=== PATIENT | female | born 1935 | race Caucasian/White ===

== ENCOUNTER 2021-06-10 11:18 | Inpatient (IN) | payer MEDICARE, MEDICAID ==
[~2021-06-10] VITALS: Ht 160 cm; Wt 71.4 kg
[2021-06-10] MEDS ORDERED: diphenhydrAMINE 25 MG TAB (BENADRYL) PO PRN (12:30)
[2021-06-10] MEDS ORDERED: CALCIUM CARBONATE 500 MG (TUMS) TAB.CHEW PO PRN (12:30)
[2021-06-10] MEDS ORDERED: DOCUSATE SODIUM 100 MG (COLACE) CAP PO PRN (12:30)
[2021-06-10] MEDS ORDERED: FLEET ENEMA ADULT 1 EA BTL PR PRN (12:30)
[2021-06-10] MEDS ORDERED: guaiFENesin/CODEINE (ROBITUSSIN AC) 10ML UDC PO PRN (12:30)
[2021-06-10] MEDS ORDERED: ALPRAZolam 0.25 MG (XANAX) TAB PO PRN (12:30)
[2021-06-10] MEDS ORDERED: LACTULOSE SYRUP 10GM/15ML (ENULOSE) 30ML UDC PO PRN (12:30)
[2021-06-10] MEDS ORDERED: ONDANSETRON 4 MG (ZOFRAN) ORAL DISSOLVE TAB PO PRN (12:30)
[2021-06-10] MEDS ORDERED: BISACODYL 10 MG SUPP (DULCOLAX) PR PRN (12:30)
--- NOTE | 2021-06-10 15:25 | Progress Note ---
JORGE SANTIAGO 06/10/21 1525: Progress Note Subjective CC: Right Hip Fracture, s/p R NAJMA revision HPI: Ruth Ball is an 85 yo female with a history of multiple falls and fractures, who presents for evaluation and management of periprosthetic R hip fracture s/p right NAJMA revision. She states that she had a recent R femoral neck fracture, which prompted a R NAJMA on 05/29/2021. Following this procedure, she was transferred to [facility] for rehabilitation. During this stay, Ruth experienced another fall. She fell forward upon standing up from a wheelchair, which resulted in an additional fracture of the R hip (periprosthetic). On 06/08/2021, Ruth underwent a revision of the R NAJMA. Today she is conversational, and alert. However, she states that she is in significant pain when she has to move her legs. She states she has not had a bowel movement in 3 days, and has not had an appetite. She will be accompanied by her son. PMH: Elevated BP w/o diagnosis of HTN Multiple Qing Hypo-natremia Anemia associated with acute blood loss R femoral neck fracture Sunshine-prosthetic fracture around internal prosthetic R hip joint Protein-calorie malnutrition PSH: Appendectomy Partial Hip replacement, hip hemiarthroplasty (05/29/21) Revision of R NAJMA (06/08/2021) MEDS: Item Value Date Time Tamsulosin HCl 0.4 mg 06/11/21 0900 (Flomax Capsule) DAILY/PO Metoprolol 25 mg 06/11/21 0900 Succinate DAILY/PO (Toprol Xl Tablet) Lidocaine 1 ea 06/11/21 0900 (Salonpas 4% DAILY/TP Patch) Vancomycin HCl 125 mg 06/10/21 2100 (Vancomycin Oral Q12HR/PO Capsule) Amoxicillin 500 mg 06/10/212099 (Polymox Capsule) TID/PO Lactobacillus 1 each 06/10/212099 Acidophilus BID/PO (Acidophilus Pectin Capsule) Miscellaneous REMOVE LIDOCAINE PATCH 06/10/212099 (Patch Removal) Q24H/TP Sodium Chloride 1 gm 06/10/212099 (Sodium Chloride TID/PO Tablet) Aspirin 81 mg 06/10/212099 (Ecotrin Tablet) BID/PO Senna 1 ea 06/10/212099 (Senokot S BID/PO Tablet) Polyethylene 17 gm 06/10/21 2100 Glycol BID/PO (Miralax 17 Gm Packet) Docusate Sodium 100 mg 06/10/21 2100 (Colace Capsule) BID/PO Tramadol HCl 50 mg 06/10/21 1800 (Ultram Tablet) Q8H PRN/PO Senna 1 ea 06/10/21 1800 (Senokot S BID PRN/PO Tablet) Oxycodone HCl 5 mg 06/10/21 1800 (Oxyir Tablet) Q8H PRN/PO Ondansetron HCl 4 mg 06/10/21 1230 (Zofran Oral Q6H PRN/PO Dissolve Tablet) Melatonin 3 mg 06/10/21 1230 (Melatonin HS PRN/PO Tablet) Loperamide HCl 2 mg 06/10/21 1230 (Imodium Tablet) PRN PRN/PO Guaifenesin/ 10 ml 06/10/21 1230 Codeine Phosphate Q4H PRN/PO (Robitussin Ac (Codeine) Syrup) Sodium 1 ea 06/10/21 1230 Biphosphate/ BID PRN/TN Sodium Phosphate (Fleet Enema Adult) Lactulose 10 gm 06/10/21 1230 (Enulose Oral BID PRN/PO Solution) Bisacodyl 10 mg 06/10/21 1230 (Dulcolax DAILY PRN/TN Suppository) Docusate Sodium 100 mg 06/10/21 1230 (Colace Capsule) BID PRN/PO Diphenhydramine 25 mg 06/10/21 1230 HCl Q6H PRN/PO (Benadryl Tablet) Calcium Carbonate 500 mg 06/10/21 1230 (Antacid TID PRN/PO Chewable Tablet) Alprazolam 0.25 mg 06/10/21 1230 (Xanax Tablet) Q8H PRN/PO ALL: NKDA SH: . Has two sons, and one daughter. Currently retired. Former smoker. FH: Non-contributory ROS: Constitutional: Denies any fever, chills. Admits to feeling weak and tired. CV: Denies any chest pain. Denies palpitations. Resp: Denies SOB, denies cough GI: Has constipation, no appetite Objective: Vital Signs 06/10/21 06/10/21 18:11 18:24 Temp 36.6 Pulse 75 Resp 18 B/P (MAP) 139/59 (85) Pulse Ox 97 O2 Delivery Room Air Physical Exam General: A&O x 3, appropriate affect, thin-appearing, very conversational CV: RRR, no MRG. Cap refill , < 3 sec Resp: CTAB GI: Normal bowel sounds in all four quadrants. MSK: no cyanosis, no edema. Has pain in R hip Skin: Pressure ulcer is present posteriorly on bilateral sacrum Assessment and Plan 1. Periprosthetic fracture around internal prosthetic R hip joint, s/p revision of R NAJMA (06/08/2021) 2. R femoral neck fracture, s/p Partial Hip replacement, hip hemiarthroplasty (05/29/21) 3. Multiple falls resulting in hip fractures To be evaluated and managed by PT/OT Pain control 4. Protein-calorie malnutrition Nutrition education Discussed goals of eating more protein and foods with Vit C 5. Hyponatremia Supplement Monitor HALI DAVILA DO 06/11/21 0513: Supervisory-Addendum Brief Verification & Attestation Participated in pt care: history, MDM, physical Personally performed: exam, history, MDM, supervision of care Care discussed with: Medical Student Procedures: n/a Results interpretation: Verified all documentation Verification and Attestation of Medical Student E/M Service A medical student performed and documented this service in my presence. I reviewed and verified all information documented by the medical student and made modifications to such information, when appropriate. I personally performed the physical exam and medical decision making. Hali Davila Jun 11, 2021,05:13 JORGE SANTIAGO Jun 10, 2021 15:25 HALI DAVILA DO Jun 11, 2021 05:13
[2021-06-10] MEDS ORDERED: AMPI500C9 PO (17:02)
[2021-06-10] MEDS ORDERED: TRM50T PO (17:02)
[2021-06-10] MEDS ORDERED: VANC50SO PO (17:02)
[2021-06-10] MEDS ORDERED: ASPI-1238 PO (17:02)
[2021-06-10] MEDS ORDERED: NF-NACL1GT PO (17:02)
[2021-06-10] MEDS ORDERED: LACT1CAP39 PO (17:02)
[2021-06-10] MEDS ORDERED: TMSL.4C PO (17:02)
[2021-06-10] MEDS ORDERED: METO-351 PO (17:02)
[2021-06-10] MEDS ORDERED: LIDO700A45 TP (17:02)
[2021-06-10] MEDS ORDERED: OXYC-473 PO (17:02)
[2021-06-10] MEDS ORDERED: SENN-40 PO (17:02)
--- NOTE | 2021-06-10 17:53 | PM&R Post Admission Assessment ---
PM&R HP Date of Visit: Jun 10, 2021 Time of Visit: 18:00 History of Present Illness Chief complaint: Right hip fracture status post repair then recurrent right hip fracture after another fall requiring repair History of present illness: This is an 85-year-old white female who has a history of falls who presents from [facility] after a repair of the right hip fracture on 06/08/2021 after she experienced another fall after the original right hip fracture on 05/29/2021. She was recovering at a nursing facility when she fell again. She requires indwelling Terry catheter due to urinary retention so she will need urology follow-up in addition she has a current UTI and amoxicillin is ordered. She appears to be very frail and has poor reserve. She is currently constipated also. She does not use oxygen supplemental. CC: Right Hip Fracture, s/p R NAJMA revision HPI: Ruth Ball is an 85 yo female with a history of multiple falls and fractures, who presents for evaluation and management of periprosthetic R h ip fracture s/p right NAJMA revision. She states that she had a recent R femoral neck fracture, which prompted a R NAJMA on 05/29/2021. Following this procedure, she was transferred to [facility] for rehabilitation. During this stay, Ruth experienced another fall. She fell forward upon standing up from a wheelchair, which resulted in an additional fracture of the R hip (periprosthetic). On 06/08/2021, Ruth underwent a revision of the R NAJMA. Today she is conversational, and alert. However, she states that she is in significant pain when she has to move her legs. She states she has not had a bowel movement in 3 days, and has not had an appetite. She will be accompanied by her son. PMH: Elevated BP w/o diagnosis of HTN Multiple Qing Hypo-natremia Anemia associated with acute blood loss R femoral neck fracture Sunshine-prosthetic fracture around internal prosthetic R hip joint Protein-calorie malnutrition PSH: Appendectomy Partial Hip replacement, hip hemiarthroplasty (05/29/21) Revision of R NAJMA (06/08/2021) MEDS: Item Value Date Time Tamsulosin HCl 0.4 mg 06/11/21 0900 (Flomax Capsule) DAILY/PO Metoprolol 25 mg 06/11/21 0900 Succinate DAILY/PO (Toprol Xl Tablet) Lidocaine 1 ea 06/11/21 0900 (Salonpas 4% DAILY/TP Patch) Vancomycin HCl 125 mg 06/10/21 2100 (Vancomycin Oral Q12HR/PO Capsule) Amoxicillin 500 mg 06/10/21 2100 (Polymox Capsule) TID/PO Lactobacillus 1 each 06/10/21 2100 Acidophilus BID/PO (Acidophilus Pectin Capsule) Miscellaneous REMOVE LIDOCAINE PATCH 06/10/21 2100 (Patch Removal) Q24H/TP Sodium Chloride 1 gm 06/10/21 2100 (Sodium Chloride TID/PO Tablet) Aspirin 81 mg 06/10/21 2100 (Ecotrin Tablet) BID/PO Senna 1 ea 06/10/21 2100 (Senokot S BID/PO Tablet) Polyethylene 17 gm 06/10/21 2100 Glycol BID/PO (Miralax 17 Gm Packet) Docusate Sodium 100 mg 06/10/21 2100 (Colace Capsule) BID/PO Tramadol HCl 50 mg 06/10/21 1800 (Ultram Tablet) Q8H PRN/PO Senna 1 ea 06/10/21 1800 (Senokot S BID PRN/PO Tablet) Oxycodone HCl 5 mg 06/10/21 1800 (Oxyir Tablet) Q8H PRN/PO Ondansetron HCl 4 mg 06/10/21 1230 (Zofran Oral Q6H PRN/PO Dissolve Tablet) Melatonin 3 mg 06/10/21 1230 (Melatonin HS PRN/PO Tablet) Loperamide HCl 2 mg 06/10/21 1230 (Imodium Tablet) PRN PRN/PO Guaifenesin/ 10 ml 06/10/21 1230 Codeine Phosphate Q4H PRN/PO (Robitussin Ac (Codeine) Syrup) Sodium 1 ea 06/10/21 1230 Biphosphate/ BID PRN/SD Sodium Phosphate (Fleet Enema Adult) Lactulose 10 gm 06/10/21 1230 (Enulose Oral BID PRN/PO Solution) Bisacodyl 10 mg 06/10/21 1230 (Dulcolax DAILY PRN/SD Suppository) Docusate Sodium 100 mg 06/10/21 1230 (Colace Capsule) BID PRN/PO Diphenhydramine 25 mg 06/10/21 1230 HCl Q6H PRN/PO (Benadryl Tablet) Calcium Carbonate 500 mg 06/10/21 1230 (Antacid TID PRN/PO Chewable Tablet) Alprazolam 0.25 mg 06/10/21 1230 (Xanax Tablet) Q8H PRN/PO ALL: NKDA SH: . Has two sons, and one daughter. Currently retired. Former smoker. FH: Non-contributory ROS: Constitutional: Denies any fever, chills. Admits to feeling weak and tired. CV: Denies any chest pain. Denies palpitations. Resp: Denies SOB, denies cough GI: Has constipation, no appetite Objective: Vital Signs 06/10/21 06/10/21 18:11 18:24 Temp 36.6 Pulse 75 Resp 18 B/P (MAP) 139/59 (85) Pulse Ox 97 O2 Delivery Room Air Physical Exam General: A&O x 3, appropriate affect, thin-appearing, very conversational CV: RRR, no MRG. Cap refill , < 3 sec Resp: CTAB GI: Normal bowel sounds in all four quadrants. MSK: no cyanosis, no edema. Has pain in R hip Skin: Pressure ulcer is present posteriorly on bilateral sacrum Assessment and Plan 1. Periprosthetic fracture around internal prosthetic R hip joint, s/p revision of R NAJMA (06/08/2021) 2. R femoral neck fracture, s/p Partial Hip replacement, hip hemiarthroplasty (05/29/21) 3. Multiple falls resulting in hip fractures To be evaluated and managed by PT/OT Pain control 4. Protein-calorie malnutrition Nutrition education Discussed goals of eating more protein and foods with Vit C 5. Hyponatremia Supplement Monitor JORGE SANTIAGO Past Mkfgoyn-Bdsavi-Kskmcx Hx Past Med/Social Hx: Reviewed Nursing Past Med/Soc Hx, Reviewed and Corrections made Patient Social History Marrital Status: single Employed/Student: retired Alcohol Use: Denies Use Smoking Status: Former Smoker Recent Foreign Travel: No Contact w/other who traveled: No Past Medical History Surgeries: Orthopedic Cardiac: Hypertension Genitourinary: Bladder Infection Musculoskeletal: Arthritis PM&R Allergy/Meds/Data Review Allergies Coded Allergies: No Known Drug Allergies (Unverified , 06/10/21) Home Medications Scheduled Ampicillin Trihydrate (Ampicillin Trihydrate), 500 MG PO Q6H, (Reported) Aspirin (Aspirin EC), 81 MG PO BID, (Reported) Lactobacillus Rhamnosus GG (Culturelle), 1 EACH PO BID, (Reported) Lidocaine (Lidocaine 5% Patch), 1 EACH TP DAILY, (Reported) Metoprolol Succinate (Toprol Xl), 25 MG PO DAILY, (Reported) Sodium Chloride (Sodium Chloride), 1 GM PO TID, (Reported) Tamsulosin HCl (Flomax), 0.4 MG PO DAILY, (Reported) Vancomycin HCl (Firvanq), 125 MG PO BID, (Reported) Scheduled PRN Oxycodone HCl (Roxicodone), 5 MG PO Q8H PRN for PAIN-SEVERE (8-10), (Reported) Sennosides/Docusate Sodium (Senokot-S Tablet), 1 EACH PO BID PRN for CONSTIPATION-1ST LINE, (Reported) Tramadol HCl (Tramadol HCl), 50 MG PO Q8H PRN for PAIN-MODERATE (5-7), (Re ported) Current Medications Current Medications Reviewed Review of Systems Constitutional: see HPI, malaise, weakness EENTM: no symptoms reported Respiratory: no symptoms reported Cardiovascular: no symptoms reported Gastrointestinal: constipation Genitourinary: other (Retention) Musculoskeletal: back pain, joint pain Skin: no symptoms reported Psychiatric/Neurological: Anxiety All Other Systems Reviewed Negative Unless Noted: Yes Physical Exam Physical Exam Vital Signs Capillary Refill : Height, Weight, BMI Height: '" Weight: lbs. oz. kg; BMI Method: General Appearance: No Apparent Distress, WD/WN, Anxious, Chronically ill Eyes: Bilateral Eye Normal Inspection, Bilateral Eye PERRL HEENT: PERRL/EOMI, Normal ENT Inspection, Pharynx Normal Neck: Full Range of Motion, Normal Inspection, Non Tender, Supple, Carotid Bruit Respiratory: Chest Non Tender, Lungs Clear, Normal Breath Sounds, No Accessory Muscle Use, No Respiratory Distress Cardiovascular: Regular Rate, Rhythm, No Edema, No Gallop, No JVD, No Murmur, Normal Peripheral Pulses Gastrointestinal: Normal Bowel Sounds, No Organomegaly, No Pulsatile Mass, Non Tender, Soft Back: Normal Inspection, No CVA Tenderness, No Vertebral Tenderness Extremity: Normal Capillary Refill, Normal Inspection, Normal Range of Motion (Except right leg), Non Tender, No Calf Tenderness, No Pedal Edema Neurologic/Psychiatric: Alert, Oriented x3, No Motor/Sensory Deficits, Normal Mood/Affect, 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 Norm as Tested, Abnormal Gait, Motor Weakness (Right leg) Skin: Normal Color, Warm/Dry Lymphatic: No Adenopathy PM&R Medical Assessment & Plan REHAB/MEDICAL ASSESSMENT AND PLAN: REHAB IMPAIRMENT GROUP: Right hip fracture ETIOLOGIC DIAGNOSIS: Right hip fracture The comorbidities that impact the patients function and/or functional outcome by: Advanced age, frail status, recurrent falls, urinary retention, UTI REHAB PLAN: The patient is being admitted to our comprehensive inpatient rehabilitation facility and can tolerate the intensity of service consisting of at least: 180 minutes of therapy a day, 5 out of 7 days a week Rehab treatment will consist of: PT and OT will focus on regaining function with fall risk prevention and increase independence in ADLs in order to return to independent living The patient/family has a good understanding of our discharge process and will benefit from an interdisciplinary inpatient rehabilitation program. The patient has potential to make improvement and is in need of at least two of the following multidisciplinary therapies including but not limited to physical, occupational, speech, and prosthetics and orthotics. Additionally the patient will need services from respiratory, nutritional services, wound care, psychology, etc. (Customize this to each patient). Given the patients complex condition and risk of further medical complications, rehabilitation services cannot be safely or effectively provided at a lower level of care such as a longterm facility. BARRIERS TO DISCHARGE: Recurrent falls ESTIMATED LOS: 14 days DISPOSITION: Home RELEVANT CHANGES SINCE PREADMISSION SCREENING: I have compared the patients medical and functional status at the time of the preadmission screening and there are: No changes PROGNOSIS: Guarded REHABILITATION GOALS: 1. PT and OT will focus on regaining function with fall risk prevention and increase independence in ADLs in order to return to independent living All the above goals were reviewed with the patient and he/she is in agreement. By signing this document, I acknowledge that I have personally performed a full physical examination on this patient within 24 hours of admission to this in patient rehabilitation facility and have determined the patient to be able to tolerate the above course of treatment at an intensive level for a reasonable period of time. I will be completing a detailed individualized Plan of Care for this patient by day #4 of the patients stay based upon the Preadmission Screen, the Post-Admission Evaluation, and the therapy evaluations. Admission Dx/Comorbidities: (1) Hip fracture, right ICD Codes: S72.001A - Fracture of unspecified part of neck of right femur, initial encounter for closed fracture (2) UTI (urinary tract infection) ICD Codes: N39.0 - Urinary tract infection, site not specified (3) Urinary retention ICD Codes: R33.9 - Retention of urine, unspecified (4) Terry catheter in place ICD Codes: Z97.8 - Presence of other specified devices (5) Falls ICD Codes: W19.XXXA - Unspecified fall, initial encounter (6) Hyponatremia ICD Codes: E87.1 - Hypo-osmolality and hyponatremia (7) Constipation ICD Codes: K59.00 - Constipation, unspecified Assessment/Plan Assessment and Plan Assess & Plan/Chief Complaint Assessment: Right hip fracture sustained after repair of original right hip fracture Multiple falls Acute urinary retention Terry catheter in place UTI Hyponatremia Advanced age Poor reserve Anemia Postop constipation Plan: Inpatient rehab protocol Bowel regimen Complete antibiotics Urinary retention management FAUSTO DAVILA DO Jun 10, 2021 17:53
[2021-06-10] MEDS ORDERED: AMPICILLIN TRIHYDRATE 500 MG PO SCH (18:00)
[2021-06-10] MEDS ORDERED: SENNA W/DOCUSATE (SENOKOT S) TABLET PO PRN (18:00)
[2021-06-10 18:11] VITALS: BP 139/59
[2021-06-10 20:30] VITALS: BP 148/63
[2021-06-10] MEDS ORDERED: VANCOMYCIN HCL 125 MG PO SCH (21:00)
[2021-06-10] MEDS ORDERED: NON-FORMULARY MEDICATION 1 EA EA (Lactobacillus Rhamnosus GG (Culturelle) 1 EACH) PO SCH (21:00)
[2021-06-10] MEDS: SENNA W/DOCUSATE (SENOKOT S) TABLET PO SCH (21:15)
[2021-06-10] MEDS: [UNRECOGNIZED DRUG - REMARK] TP SCH (21:15)
[2021-06-10] MEDS: polyethylene glycoL POWDER 17 GM (MIRALAX) PACK PO SCH (21:15)
[2021-06-10] MEDS: DOCUSATE SODIUM 100 MG (COLACE) CAP PO SCH (21:15)
[2021-06-10] MEDS: SODIUM CHLORIDE 1 GM TABLET PO SCH (21:22)
[2021-06-10] MEDS: LACTOBACILLUS ACIDOPHILUS (PROBIOTIC) CAPSULE PO SCH (21:23)
[2021-06-10] MEDS: VANCOMYCIN 125 MG CAPSULE PO SCH (21:23)
[2021-06-10] MEDS: ASPIRIN E.C. 81 MG (ECOTRIN) TAB PO SCH (21:23)
[2021-06-10] MEDS: AMOXICILLIN 500 MG (POLYMOX) CAP PO SCH (21:23)
[2021-06-11] MEDS: BETHANECHOL 25 MG (URECHOLINE) TAB PO SCH ×4 (06:07→21:23)
--- NOTE | 2021-06-11 07:34 | Occupational Therapy Eval ---
OT Evaluation-General/PLF Medical Diagnosis Admission Date Jun 10, 2021 at 17:51 Medical Diagnosis: s/p R NAJMA Onset Date: Jun 08, 2021 Therapy Diagnosis Therapy Diagnosis: decreased ADL status, weakness Precautions Precautions/Isolations: Fall Prevention, Standard Precautions, Pressure Ulcer Referral Physician: Rima Webster Reason: Evaluation/Treatment Medical History Additional Medical History Multiple falls, hypo-natremia, anemia, R femoral neck fx s/p hemiarthroplasty 05/29/21, armand-prosthetic fx around internal prosthetic R hip joint s/p revision to R NAJMA 06/08/21, protein-calorie malnutrition. Current History Initial hip fx 05/29/21 s/p hemiarthroplasty, went to SNF where she fell again resulting in a total hip replacement 06/08/21. Social History Home: Single Level Current Living Status: Children (son) Entry Into Home: Stairs With Railing Steps Into Home: 5 ADL-Prior Level of Function SCALE: Activities may be completed with or without assistive devices. 6-Xzumyjuycv-cladnso completes the activity by him/herself with no assistance from a helper. 5-Set-up or Clean-up Assistance-helper sets up or cleans up; patient completes activity. [place] assists only prior to or following the activity. 4-Supervision or Touching Assistance-helper provides verbal cues and/or touching/steadying and/or contact guard assistance as patient completes activity. Assistance may be provided throughout the activity or intermittently. 3-Partial/Moderate Assistance-helper does LESS THAN HALF the effort. [place] lifts, holds or supports trunk or limbs, but provides less than half the effort. 2-Substantial/Maximal Assistance-helper does MORE THAN HALF the effort. [place] lifts or holds trunk or limbs and provides more than half the effort. 0-Mgvyjxvwn-riucpf does ALL the effort. Patient does none of the effort to complete the activity. Or, the assistance of 2 or more helpers is required for the patient to complete the activity. If activity was not attempted, code reason: 7-Patient Refused. 9-Not Applicable-not attempted and the patient did not perform the activity before the current illness, exacerbation or injury. 10-Not Attempted due to Environmental Limitations-(lack of equipment, weather restraints, etc.). 88-Not Attempted due to Medical Conditions or Safety Concerns. ADL PLOF Comments Pt reports IND with all I/ADLs and a SPC for functional mobility. She lives with her son. Pt completes all driving, shopping, and cooking. Her son is able to complete his own dressing/bathing (Asperger's Syndrome) Self Care: Independent Functional Cognition: Independent DME/Equipment: Grab Bars, Tub/Shower DME/Equipment Comments SPC OT Current Status Subjective Pt easily distracted with conversation, requiring redirection to conversations/tasks. Pt required moderate encouragement throughout session to participate, as she frequently requests to go back to bed. Mental Status/Objective Patient Orientation: Person, Place, Time, Situation Attachments: Terry Catheter Current Dentures/Partials: Yes Hand Dominance: Right Upper Extremity ROM WFL, BUE shoulder flexion to approx 150 degrees Upper Extremity Coordination WFL Upper Extremity Sensation WFL Upper Extremity Strength grossly 4-/5 BUEs ADL-Treatment Eating (QC): 6 (Pt independent with breakfast.) Oral Hygiene (QC): 5 (Pt required set up assistance to place dentures in her mouth.) Shower/Bathe Self (QC): 3 (Pt able to wash BUEs, chest/abdomen, periarea, upper thighs and buttocks. Min A in stand at GBs. Assistance required to wash BLEs lower legs/feet.) Upper Body Dressing (QC): 5 (set up with test puller shirt and jacket) Lower Body Dressing (QC): 2 (Pt required assistance threading BLEs, assistance with pant hike. Pt able to perform some of pant hike.) On/Off Footwear (QC): 2 (Pt able to doff slip on shoes, assist to don. Based on clincial judgement, requires total assist with gripper socks.) Toileting Hygiene (QC): 3 (Pt able to manage hygiene, some assistance with pant hike.) Other Treatments [id number]: Pt laying in bed upon OT entry. OT introduced self to pt and educated pt on purpose/benefit of OT. She provided information about PLOF and home set up, and participated in UE screen. Pt required increased time to answer questions, as she was easily distracted and talked about other things, requiring redirection to topics. OT also provided pt on education on rehab process. [id number] PT evaluation (not billed). Pt transferred supine to sit EOB, then used FWW to perform functional mobility into bathroom and onto SC [id number] OT/PT cotreat due to skill of 2 clinicians required which a rehab trainer could not perform in order to coordinate UE/LEs, decrease fall risk, and due to pt's limitations in strength, mobility, activity tolerance. OT focused on UE placement, ADLs, cues for sequencing and safety, PT focused on LE placement, gross overall movement, and functional mobility/transfers. Pt completed ADLs as outlined above seated on SC, then used FWW to perform functional mobility around [facility] common area, in/out of car simulation, and back to her room. Pt took seated rest breaks as needed. Post tx, pt laying in bed, call light in reach and all needs met. Bed mobility/transfer min-mod A, sitting EOB ~5 mins without assistance. Min A with functional mobility using FWW (~25') with verbal cues for safety and path. Education OT Patient Education: Correct positioning, Energy conservation, Modified ADL techniques, Progress toward Goal/Update tx plan, Purpose of tx/functional activities, Reviewed precautions (pt recalled 2/3), Rehab process, Safety issues , Transfer techniques Teaching Recipient: Patient Teaching Methods: Discussion Response to Teaching: Verbalize Understanding OT Short Term Goals Short Term Goals Time Frame: Jun 22, 2021 Toileting hygiene: 4 Shower/bathe self: 4 Lower body dressin Putting on/taking off footwear: 4 OT Alf Goals Coin Machine Supervisor Goals Time Frame: Jul 01, 2021 Eating (QC): 6 Oral Hygiene (QC): 6 Toileting Hygiene (QC): 6 Shower/Bathe Self (QC): 6 Upper Body Dressing (QC): 6 Lower Body Dressing (QC): 6 On/Off Footwear (QC): 6 Additional Goals: 1-Demonstrate ADL Tasks, 2-Verbalize Understanding, 3-ImproveStrength/Etienne 1=Demonstrate adherence to instructed precautions during ADL tasks. 2=Patient will verbalize/demonstrate understanding of assistive devices/modifications for ADL. 3=Patient will improve strength/tolerance for activity to enable patient to perform ADL's. OT Education/Plan Problem List/Assessment Assessment: Decreased Activ Tolerance, Decreased UE Strength, Impaired Funct Balance, Impaired I ADL's, Impaired Self-Care Skills Discharge Recommendations Plan/Recommendations: Continue POC Equpiment Recommendations-D/C: Extended Bath Bench, Hip Kit Treatment Plan/Plan of Care Patient would benefit from OT for education, treatment and training to promote independence in ADL's, mobility, safety and/or upper extremity function for ADL's. Plan of Care: ADL Retraining, Functional Mobility, Group Exercise/Act as Ind, UE Funct Exercise/Act Treatment Duration: Jul 01, 2021 Frequency: At least 5 of 7 days/Wk (IRF) Estimated Hrs Per Day: 1.5 hours per day Agreement: Yes Rehab Potential: Fair Time/GCodes Start Time: 07:15 Stop Time: 08:55 Total Time Billed (hr/min): 90 Billed Treatment Time [id number] OT eval/tx [id number] PT eval [id number] OT/PT cotreat 1, EVM (10'), ADL 3 (45'), FA 2 (35') PANCHO VAZQUEZ OT Jun 11, 2021 07:34
[2021-06-11 07:48] LABS: ALBUMIN 2.5 GM/DL (3.2-4.5); POTASSIUM 4.4 MMOL/L (3.6-5.0)
[2021-06-11 07:50] LABS: CALCIUM 8.1 MG/DL (8.5-10.1)
[2021-06-11 07:51] LABS: TOTAL PROTEIN 5.3 GM/DL (6.4-8.2)
[2021-06-11 07:53] LABS: BILIRUBIN,TOTAL 0.5 MG/DL (0.1-1.0)
[2021-06-11 07:55] LABS: CREATININE SERUM 0.49 MG/DL (0.60-1.30)
[2021-06-11 08:17] LABS: BASOPHILS # (AUTO) 0.1 10^3/uL (0.0-0.1); BASOPHILS % (AUTO) 0 % (0-10); EOSINOPHILS # (AUTO) 0.1 10^3/uL (0.0-0.3); EOSINOPHILS % (AUTO) 1 % (0-10); HEMATOCRIT 29 % (35-52); HEMOGLOBIN 9.6 g/dL (11.5-16.0); LYMPHOCYTES # (AUTO) 1.3 10^3/uL (1.0-4.0); LYMPHOCYTES % (AUTO) 9 % (12-44); MEAN CORPUSCULAR HEMOGLOBIN 30 pg (25-34); MEAN CORPUSCULAR HGB CONC 33 g/dL (32-36); MEAN CORPUSCULAR VOLUME 91 fL (80-99); MONOCYTES # (AUTO) 1.1 10^3/uL (0.0-1.0); MONOCYTES % (AUTO) 7 % (0-12); NEUTROPHILS # (AUTO) 13.1 10^3/uL (1.8-7.8); NEUTROPHILS % (AUTO) 83 % (42-75); PLATELET COUNT 357 10^3/uL (130-400); WHITE BLOOD COUNT 15.8 10^3/uL (4.3-11.0)
--- NOTE | 2021-06-11 08:28 | Physical Therapy Evaluation ---
PT Evaluation-General Medical Diagnosis Admission Date Jun 10, 2021 at 17:51 Medical Diagnosis: s/p R NAJMA Onset Date: Jun 08, 2021 Therapy Diagnosis Therapy Diagnosis: Gait deficit, strength deficit Precautions Precautions/Isolations: Fall Prevention, Standard Precautions, Pressure Ulcer Weight Bear Status Right Lower Extremity: Right Weight Bearing/Tolerated Referral Physician: Rima Reason for Referral: Evaluation/Treatment Social History Home: Single Level Current Living Status: Children (son) Entry Into Home: Stairs With Railing PT Steps Into Home: 5 Prior Prior Level of Function SCALE: Activities may be completed with or without assistive devices. 7-Bxmpmydkwv-dhbcaig completes the activity by him/herself with no assistance from a helper. 5-Set-up or Clean-up Assistance-helper sets up or cleans up; patient completes activity. [place] assists only prior to or following the activity. 4-Supervision or Touching Assistance-helper provides verbal cues and/or touching/steadying and/or contact guard assistance as patient completes activity. Assistance may be provided throughout the activity or intermittently. 3-Partial/Moderate Assistance-helper does LESS THAN HALF the effort. [place] lifts, holds or supports trunk or limbs, but provides less than half the effort. 2-Substantial/Maximal Assistance-helper does MORE THAN HALF the effort. [place] lifts or holds trunk or limbs and provides more than half the effort. 5-Xnsngisub-icsmys does ALL the effort. Patient does none of the effort to complete the activity. Or, the assistance of 2 or more helpers is required for the patient to complete the activity. If activity was not attempted, code reason: 7-Patient Refused. 9-Not Applicable-not attempted and the patient did not perform the activity befo re the current illness, exacerbation or injury. 10-Not Attempted due to Environmental Limitations-(lack of equipment, weather re straints, etc.). 88-Not Attempted due to Medical Conditions or Safety Concerns. Bed Mobility: 6 Transfers (B,C,W/C): 6 Gait: 6 Stairs: 6 Indoor Mobility (Ambulation): Independent Stairs: Independent Prior Devices Use: None PT Evaluation-Current Subjective Patient reports 0/10 pain currently, however notes "every time I move or tough that leg it hurts." Objective Patient Orientation: Person, Place, Time, Situation Attachments: Terry Catheter ROM/Strength ROM Lower Extremities Right hip ROM limited all planes due to pain, swelling, recent surgery; right knee and ankle WFLs Left LE WFLs all planes Strength Lower Extremities Left 4/5 grossly Right hip 3-/5; right quads/hamstrings-3+/5 Sensory Vision: Functional Hearing: Functional Sensation Right Lower Extremit: Intact Sensation Left Lower Extremity: Intact Transfers Roll Left & Right (QC): 3 Sit to Lying (QC): 3 Lying to Sitting/Side of Bed(Q: 3 Sit to Stand (QC): 3 Chair/Nya-ba-Lgrbs Xfer(QC): 3 Toilet Transfer (QC): 3 Car Transfer (QC): 3 Gait Does the Patient Walk?: Yes Mode of Locomotion: Walk Anticipated Mode of Locomotion: Walk Walk 10 feet (QC): 3 Walk 50 ft with 2 Turns(QC): 3 Walk 150 ft (QC): 88 Walking 10ft/uneven surface-QC: 3 Distance: 25 feet Gait Assistive Device: FWW Wheelchair Training Does the Pt Use a Wheelchair?: No Wheel 50 ft with 2 turns (QC): 88 Wheel 150 ft (QC): 88 Stairs #of Steps: 0 1 Step (curb) (QC): 88 4 Steps (QC): 88 12 Steps (QC): 88 Balance Sitting Static: Good Sitting Dynamic: Good Standing Static: Fair Standing Dynamic: Fair Picking up an Object (QC): 88 Treatment Visit, Eval Mod, Gait, FA (2) Assessment/Needs Patient tolerated treatment fair. Demonstrates poor safety awareness at times. Patient performs all observed bed mobility and transfers with min/mod A. She is able to sit at edge of bed ~ 5minutes sans assistance. Patient ambulates 25 feet with FWW, with min A and verbal cues for safety, progression, posture and path. Patient ambulates with antalgic, step to gait on the right LE, with shortened stance time on the right LE, forward trunk posture, rounded shoulders and tends to look at the floor throughout treatment. Patient in shower post treatment with OT. Rehab Potential: Good Equipment Needs FWW, W/C, BSC, Grab Bars in bathroom. PT Short Term Goals Short Term Goals Time Frame: Jun 25, 2021 Roll Left & Right: 4 Sit to lyin Lying to sitting on side of be: 4 Sit to stand: 4 Chair/knh-cj-erriz transfer: 4 Toilet transfer: 4 Car transfer: 4 Walk 10 feet: 4 Walk 50 feet with two turns: 4 Walk 150 feet: 4 Walking 10ft on uneven surface: 4 1 step (curb): 3 4 steps: 3 12 steps: 3 Picking up objects: 4 Does pt use a wc or scooter: No PT Support Assistant Goals Alf Goals PT Alf Goals Time Frame: Jul 23, 2021 Roll Left & Right (QC): 5 Sit to Lying (QC): 5 Lying-Sitting on Side/Bed(QC): 5 Sit to Stand (QC): 5 Chair/Ynu-fx-Jhkoc Xfer(QC): 5 Toilet Transfer (QC): 5 Car Transfer (QC): 5 Does the Patient Walk: Yes Walk 10 feet (QC): 5 Walk 50ft with 2 Turns (QC): 5 Walk 150 ft (QC): 5 Walking 10ft on Uneven Surface: 5 1 Step (curb) (QC): 4 4 Steps (QC): 4 12 Steps (QC): 4 Picking up an Object (QC): 5 Does the Pt use WC or Scooter?: No Wheel 50 feet with 2 turns (QC: 88 Wheel 150 feet: 88 PT Plan Problem List Problem List: Activity Tolerance, Functional Strength, Safety, Balance, Gait, Transfer, Bed Mobility, ROM Treatment/Plan Treatment Plan: Continue Plan of Care Treatment Plan: Bed Mobility, Concurrent Therapy, Education, Functional Activity Etienne, Functional Strength, Group Therapy, Gait, Safety, Therapeutic Exercise, Transfers Treatment Duration: Aug 24, 2021 Frequency: At least 5 of 7 days/Wk (IRF) Estimated Hrs Per Day: 1.5 hours per day Patient and/or Family Agrees t: Yes Safety Risks/Education Patient Education: Gait Training, Transfer Techniques, Reviewed Precautions Teaching Recipient: Patient Teaching Methods: Demonstration, Discussion Response to Teaching: Verbalize Understanding, Reinforcement Needed Discharge Recommendations Equpiment Recommendations-D/C: Front Wheeled Walker, Toilet Riser, Manual Wheelchair Target Placement Home with Assistance prn Time/GCodes Time In: 0745 Time Out: 0855 Total Billed Treatment Time: 70 Total Billed Treatment Visit, Eval mod, Gait, FA (2) BENTON NOVA PT Jun 11, 2021 08:28
[2021-06-11 08:50] VITALS: BP 134/60
[2021-06-11 09:30] LABS: BAND NEUTROPHILS 0 %; BASOPHILS % (MANUAL) 0 %; EOSINOPHILS % (MANUAL) 2 %; LYMPHOCYTES % (MANUAL) 8 %; MONOCYTES % (MANUAL) 7 %; NEUTROPHILS % (MANUAL) 83 %; RBC MORPH NORMAL
[2021-06-11] MEDS: SODIUM CHLORIDE 1 GM TABLET PO SCH ×3 (10:18→21:27)
--- NOTE | 2021-06-11 10:19 | Individualized Plan of Care ---
Individualized Plan of Care Rehab Nursing IPOC Order Admission Date Jun 10, 2021 at 17:51 Current Orders Orders Admission Order(Inpt,Obs,Sdc) (06/10/21 12:22) Vital Signs: Per Unit Policy ( ,16,00 (06/10/21 12:22) Butch Agarwal (06/10/21 12:22) Sequential Compression Device .admit (06/10/21 12:22) Manager Of Case-Inpt Rehab Con (06/10/21 12:22) Rehab Nursing Orders-Ipoc (06/10/21 12:22) Physical Therapy Rehab Orders (06/10/21 12:22) Occupational Therapy Rehab Ord (06/10/21 12:22) Speech Therapy Rehab Orders (06/10/21:) Cbc With Automated Diff (06/11/21 06:00) Comprehensive Metabolic Panel (06/11/21 06:00) Precautions (Aru) (06/10/21 12:) Rehab-Intensity Of Therapy (06/10/21 12:) Initiate Admission Nursing Pro .admission (06/10/21 12:22) Alprazolam Tablet (Xanax Tablet) (06/10/21 12:30) Calcium Carbonate Chew Tablet (Antacid C (06/10/21 12:30) Diphenhydramine Tablet (Benadryl Tablet) (06/10/21 12:30) Docusate Sodium Capsule (Colace Capsule) (06/10/21 21:00) Docusate Sodium Capsule (Colace Capsule) (06/10/21 12:30) Bisacodyl Suppository (Dulcolax Supposit (06/10/21 12:30) Lactulose Oral Solution (Enulose Oral So (06/10/21 12:30) Na Phos/Na Biphos Enema (Fleet Enema Shaan (06/10/21 12:30) Guaifenesin/Codeine Syrup (Robitussin Ac (06/10/21 12:30) Loperamide Tablet (Imodium Tablet) (06/10/21 12:30) Melatonin Tablet (Melatonin Tablet) (06/10/21 12:30) Polyethylene Glycol Powder Pkt (Miralax (06/10/21 21:00) Ondansetron Oral Dissolve Tab (Zofran (06/10/21 12:30) Senna S Tablet (Senokot S Tablet) (06/10/21 21:00) Initiate Admission Nursing Pro .admission (06/10/21 12:22) Aspirin Enteric Coated Tablet (Ecotrin T (06/10/21 21:00) Lidocaine 4% Patch (Salonpas 4% Patch) (06/11/21 09:00) Metoprolol Succinate (Xl) Tab (Toprol Xl (06/11/21 09:00) Oxycodone Immediate Rel Tablet (Oxyir Ta (06/10/21 18:00) Senna S Tablet (Senokot S Tablet) (06/10/21 18:00) Sodium Chloride Tablet (Sodium Chloride (06/10/21 21:00) Tamsulosin Capsule (Flomax Capsule) (06/11/21 09:00) Tramadol Tablet (Ultram Tablet) (06/10/21 18:00) (Nf) Ampicillin Trihydrate (06/10/21 18:00) (Nf) Lactobacillus Rhamnosus Gg (Culture (06/10/21 21:00) (Nf) Vancomycin Hcl (Firvanq) (06/10/21 21:00) Patch Removal (Patch Removal) (06/10/21 21:00) Lactobacillus Acidophilus Cap (Acidophil (06/10/21 21:00) Amoxicillin Capsule (Polymox Capsule) (06/10/21 21:00) Vancomycin Oral Capsule (Vancomycin Oral (06/10/21 21:00) General/Regular (06/10/21 Dinner) Bethanechol Tablet (Urecholine Tablet) (06/11/21 06:00) Manual Differential (06/11/21 08:00) Patient Visit (06/11/21 ) Pt Eval Moderate Complexity (06/11/21 ) Gait Training, Ea 15 Min (06/11/21 ) Functional Activities, Ea 15 (06/11/21 ) Fluid Restriction (06/11/21 10:17) Iron Test (Fe) (06/11/21 10:17) Procalcitonin (Pct) (06/11/21 10:17) Patient Visit (06/11/21 ) Exercise Therap, Ea 15 Min (06/11/21 ) Rehab Nursing Orders: Ongoing Assess. of Cognitive Status, Ongoing Assess. of Function Status, Bladder Management, Bladder Scan, Bladder Training, Bowel Management, Bowel Training, Disease Management & Educaiton, DVT Prophylaxis, Fall Prevention, Fluid/Electrolyte/Nutrition Mgmt, Infection Prevention, Medication Management & Education, Management of Risks & Complications, Management of Skin Intergrity, Nutrition Management, Pain Management, Patient/Family Support, Swallow Precautions, Wound Management Intensity of Therapy to be met Patient to be seen: Min.3h per day/5 of 7d PT IPOC Problem List: Activity Tolerance, Functional Strength, Safety, Balance, Gait, Transfer, Bed Mobility, ROM Treatment Plan: Continue Plan of Care Bed Mobility, Concurrent Therapy, Education, Functional Activity Etienne, Functi onal Strength, Group Therapy, Gait, Safety, Therapeutic Exercise, Transfers Treatment Duration: Aug 24, 2021 Frequency: At least 5 of 7 days/Wk (IRF) Estimated Hrs Per Day: 1.5 hours per day OT IPOC Problems: Decreased Activ Tolerance, Decreased UE Strength, Impaired Funct Balance, Impaired I ADL's, Impaired Self-Care Skills OT Treatment, Training and Edu: Yes Plan of Care: ADL Retraining, Functional Mobility, Group Exercise/Act as Ind, UE Funct Exercise/Act Treatment Duration: Jul 01, 2021 Frequency: At least 5 of 7 days/Wk (IRF) Estimated Hrs Per Day: 1.[address] IPOC Speech Therapy Treatment Plan: Discontinue ST Treatment Duration: Jun 11, 2021 Frequency: Modified Program (IRF) Estimated Hrs Per Day: Other Manager Of Case/Case Mgmt Manager Of Case/Case Managemen: Discharge Planning Dietitian/Industrial Specialist Dietitian/Industrial Specialist to monitor nutritional status and make changes and/or recommendations as needed and work with speech pathology on dietary upgrades as the occur. Physician IPOC Medical Issues being managed closely and that require the 24 hour availability of a physician: Patient with recurrent hip fracture after 2 falls with urinary retention and Terry catheter maintenance along with UTI will be monitor closely for decompensation Medical Issues: Bowel/Bladder Function, DVT Prophylaxis, Falls Precautions, Fluid/Electrolyte/Nutrition Balance, Infection Protection, Pain Management, Wound Care Brief Synthesis of Preadmission Screen, Post-Admission Evaluation, and Therapy Evaluations: PT and OT will focus on fall risk prevention and use of assistive devices in addition to increasing ADLs in order to return back to independent living Medical Prognosis: Fair Anticipated Length of Stay: 14 days FAUSTO DAVILA DO Jun 11, 2021 10:19
--- NOTE | 2021-06-11 10:19 | PM&R Progress Note ---
Subjective HPI/CC On Admission Date Seen by Provider: Jun 11, 2021 Time Seen by Provider: 13:00 Subjective/Events-last exam 06/11/2021: Patient doing well Settling in Refusing additional labs Pain is fairly well controlled Her 2 sons visited her today Check meds and labs Review of Systems General: Fatigue, Malaise Musculoskeletal: leg pain Objective Exam Vital Signs Vital Signs Date Time Temp Pulse Resp B/P (MAP) Pulse Ox O2 Delivery O2 Flow Rate FiO2 06/11/21 20:15 37.0 84 18 123/61 (81) 96 Room Air Capillary Refill : General Appearance: No Apparent Distress, WD/WN, Anxious, Chronically ill HEENT: PERRL/EOMI, Normal ENT Inspection, Pharynx Normal Neck: Full Range of Motion, Normal Inspection, Non Tender, Supple, Carotid Bruit Respiratory: Chest Non Tender, Lungs Clear, Normal Breath Sounds, No Accessory Muscle Use, No Respiratory Distress Cardiovascular: Regular Rate, Rhythm, No Edema, No Gallop, No JVD, No Murmur, Normal Peripheral Pulses Gastrointestinal: Normal Bowel Sounds, No Organomegaly, No Pulsatile Mass, Non Tender, Soft Back: Normal Inspection, No CVA Tenderness, No Vertebral Tenderness Extremity: Normal Capillary Refill, Normal Inspection, Normal Range of Motion (Except right leg), Non Tender, No Calf Tenderness, No Pedal Edema Neurologic/Psychiatric: Alert, Oriented x3, No Motor/Sensory Deficits, Normal Mood/Affect, board filler II-XII Norm as Tested, Abnormal Gait, Motor Weakness (Right leg) Skin: Normal Color, Warm/Dry Lymphatic: No Adenopathy Results/Procedures Lab Laboratory Tests 06/11/21 08:00 Patient resulted labs reviewed. FIM Transfers Therapy Code Descriptions/Definitions Functional [place] Measure: 0=Not Assessed/NA 4=Minimal Assistance 1=Total Assistance 5=Supervision or Setup 2=Maximal Assistance 6=Modified [place] 3=Moderate Assistance 7=Complete IndependenceSCALE: Activities may be completed with or without assistive devices. 5-Hnduqkgjjv-pktyahl completes the activity by him/herself with no assistance from a helper. 5-Set-up or Clean-up Assistance-helper sets up or cleans up; patient completes activity. [place] assists only prior to or following the activity. 4-Supervision or Touching Assistance-helper provides verbal cues and/or touching/steadying and/or contact guard assistance as patient completes activity. Assistance may be provided throughout the activity or intermittently. 3-Partial/Moderate Assistance-helper does LESS THAN HALF the effort. [place] lifts, holds or supports trunk or limbs, but provides less than half the effort. 2-Substantial/Maximal Assistance-helper does MORE THAN HALF the effort. [place] lifts or holds trunk or limbs and provides more than half the effort. 7-Vuqofmtqw-tpvbzh does ALL the effort. Patient does none of the effort to complete the activity. Or, the assistance of 2 or more helpers is required for the patient to complete the activity. If activity was not attempted, code reason: 7-Patient Refused. 9-Not Applicable-not attempted and the patient did not perform the activity before the current illness, exacerbation or injury. 10-Not Attempted due to Environmental Limitations-(lack of equipment, weather restraints, etc.). 88-Not Attempted due to Medical Conditions or Safety Concerns. Roll Left to Right (QC): 3 Sit to Lying (QC): 3 Sit to Stand (QC): 3 Chair/Btj-vf-Ypznj Xfer(QC): 3 Car Transfer (QC): 3 Gait Training Does the Patient Walk?: Yes Walk 10 feet (QC): 3 Walk 50 ft with 2 Turns(QC): 3 Walk 150 ft (QC): 88 Walking 10ft/uneven surface-QC: 3 Gait Assistive Device: FWW Wheelchair Training Does the Pt Use a Wheelchair?: No Wheel 50 ft with 2 turns (QC): 88 Wheel 150 ft (QC): 88 Stair Training #of Steps: 0 1 Step (curb) (QC): 88 4 Steps (QC): 88 12 Steps (QC): 88 Balance Picking up an Object (QC): 88 ADL-Treatment Eating (QC): 6 (Pt independent with breakfast.) Oral Hygiene (QC): 5 (Pt required set up assistance to place dentures in her mouth.) Shower/Bathe Self (QC): 3 (Pt able to wash BUEs, chest/abdomen, periarea, upper thighs and buttocks. Min A in stand at GBs. Assistance required to wash BLEs lower legs/feet.) Upper Body Dressing (QC): 5 (set up with harness puller shirt and jacket) Lower Body Dressing (QC): 2 (Pt required assistance threading BLEs, assistance with pant hike. Pt able to perform some of pant hike.) On/Off Footwear (QC): 2 (Pt able to doff slip on shoes, assist to don. Based on clincial judgement, requires total assist with gripper socks.) Toileting Hygiene (QC): 3 (Pt able to manage hygiene, some assistance with pant hike.) Assessment/Plan Assessment and Plan Assess & Plan/Chief Complaint Assessment: Right hip fracture sustained after repair of original right hip fracture Multiple falls Acute urinary retention Terry catheter in place UTI Hyponatremia Advanced age Poor reserve Anemia Postop constipation Plan: Inpatient rehab protocol Bowel regimen Complete antibiotics Urinary retention management 06/11/2021: Continue bladder regimen Maintain Terry catheter due to retention Monitor labs (1) Hip fracture, right (2) UTI (urinary tract infection) (3) Urinary retention (4) Terry catheter in place (5) Falls (6) Hyponatremia (7) Constipation FAUSTO DAVILA DO Jun 11, 2021 10:19
[2021-06-11] MEDS: ASPIRIN E.C. 81 MG (ECOTRIN) TAB PO SCH ×2 (10:32→21:23)
[2021-06-11] MEDS: AMOXICILLIN 500 MG (POLYMOX) CAP PO SCH ×3 (10:32→21:23)
[2021-06-11] MEDS: LACTOBACILLUS ACIDOPHILUS (PROBIOTIC) CAPSULE PO SCH ×2 (10:32→21:23)
[2021-06-11] MEDS: VANCOMYCIN 125 MG CAPSULE PO SCH ×2 (10:33→21:24)
[2021-06-11] MEDS: TAMSULOSIN 0.4 MG (FLOMAX) CAP PO SCH (10:33)
[2021-06-11] MEDS: LIDOCAINE 4% (SALONPAS) PATCH TP SCH (10:34)
[2021-06-11] MEDS: SENNA W/DOCUSATE (SENOKOT S) TABLET PO SCH ×2 (10:57→21:15)
[2021-06-11] MEDS: DOCUSATE SODIUM 100 MG (COLACE) CAP PO SCH ×2 (10:57→21:15)
[2021-06-11] MEDS: polyethylene glycoL POWDER 17 GM (MIRALAX) PACK PO SCH ×2 (10:57→21:15)
--- NOTE | 2021-06-11 12:47 | Physical Therapy Daily Note ---
PT Daily Note-Current Subjective Patient reports "Oh no, not you." "I've been deathly ill since you were here this morning, we moved too much." Mental Status Patient Orientation: Person Transfers SCALE: Activities may be completed with or without assistive devices. 2-Ukdodrkwew-texuahy completes the activity by him/herself with no assistance from a helper. 5-Set-up or Clean-up Assistance-helper sets up or cleans up; patient completes activity. [place] assists only prior to or following the activity. 4-Supervision or Touching Assistance-helper provides verbal cues and/or touching/steadying and/or contact guard assistance as patient completes activity. Assistance may be provided throughout the activity or intermittently. 3-Partial/Moderate Assistance-helper does LESS THAN HALF the effort. [place] lifts, holds or supports trunk or limbs, but provides less than half the effort. 2-Substantial/Maximal Assistance-helper does MORE THAN HALF the effort. [place] lifts or holds trunk or limbs and provides more than half the effort. 1-Qwgzeyvdq-ndelob does ALL the effort. Patient does none of the effort to complete the activity. Or, the assistance of 2 or more helpers is required for the patient to complete the activity. If activity was not attempted, code reason: 7-Patient Refused. 9-Not Applicable-not attempted and the patient did not perform the activity before the current illness, exacerbation or injury. 10-Not Attempted due to Environmental Limitations-(lack of equipment, weather restraints, etc.). 88-Not Attempted due to Medical Conditions or Safety Concerns. Weight Bearing Right Lower Extremity: Right Weight Bearing/Tolerated Exercises Seated Therapy Exercises: Ankle pumps, Long arc quads, Hip flexion, Hamstring Curls, Hip abd/add Seated Reps: 20 Assessment Current Status: Fair Progress Patient tolerated treatment well. Performs LE therapeutic exercise as listed above. Reports she actually feels a little better with the activity. Patient in chair post treatment with all needs met, nursing notified, and call light in hand. PT Short Term Goals Short Term Goals Time Frame: Jun 25, 2021 Roll Left & Right: 4 Sit to lyin Lying to sitting on side of be: 4 Sit to stand: 4 Chair/drd-lr-cvrwx transfer: 4 Toilet transfer: 4 Car transfer: 4 Walk 10 feet: 4 Walk 50 feet with two turns: 4 Walk 150 feet: 4 Walking 10ft on uneven surface: 4 1 step (curb): 3 4 steps: 3 12 steps: 3 Picking up objects: 4 Does pt use a wc or scooter: No PT Mcc Goals Pin Machine Operator Goals PT Pin Machine Operator Goals Time Frame: Jul 23, 2021 Roll Left & Right (QC): 5 Sit to Lying (QC): 5 Lying-Sitting on Side/Bed(QC): 5 Sit to Stand (QC): 5 Chair/Oee-fh-Stjwn Xfer(QC): 5 Toilet Transfer (QC): 5 Car Transfer (QC): 5 Does the Patient Walk: Yes Walk 10 feet (QC): 5 Walk 50ft with 2 Turns (QC): 5 Walk 150 ft (QC): 5 Walking 10ft on Uneven Surface: 5 1 Step (curb) (QC): 4 4 Steps (QC): 4 12 Steps (QC): 4 Picking up an Object (QC): 5 Does the Pt use WC or Scooter?: No Wheel 50 feet with 2 turns (QC: 88 Wheel 150 feet: 88 PT Plan Treatment/Plan Treatment Plan: Continue Plan of Care Treatment Plan: Bed Mobility, Concurrent Therapy, Education, Functional Activity Etienne, Functional Strength, Group Therapy, Gait, Safety, Therapeutic Exercise, Transfers Treatment Duration: Aug 24, 2021 Frequency: At least 5 of 7 days/Wk (IRF) Estimated Hrs Per Day: 1.5 hours per day Patient and/or Family Agrees t: Yes Safety Risks/Education Patient Education: Reviewed Precautions, Safety Issues Teaching Recipient: Patient Teaching Methods: Demonstration, Discussion Response to Teaching: Verbalize Understanding, Return Demonstration Time/GCodes Time In: 1225 Time Out: 1245 Total Billed Treatment Time: 20 Total Billed Treatment Visit, Ex BENTON NOVA PT Jun 11, 2021 12:47
[2021-06-11 20:15] VITALS: BP 123/61
[2021-06-11] MEDS: [UNRECOGNIZED DRUG - REMARK] TP SCH (21:20)
[2021-06-11] MEDS: MELATONIN 3 MG TABLET PO PRN (21:24)
[2021-06-12] MEDS: LOPERAMIDE 2 MG (IMODIUM) TABLET PO PRN (02:10)
[2021-06-12] MEDS: BETHANECHOL 25 MG (URECHOLINE) TAB PO SCH ×4 (06:15→20:45)
--- NOTE | 2021-06-12 06:43 | PM&R Progress Note ---
Subjective HPI/CC On Admission Date Seen by Provider: Jun 12, 2021 Time Seen by Provider: 13:00 Subjective/Events-last exam 06/12/21: Patient doing well Pain is controlled Urology will be consulted tomorrow Monitor closely Check meds and labs 06/11/2021: Patient doing well Settling in Refusing additional labs Pain is fairly well controlled Her 2 sons visited her today Check meds and labs Review of Systems General: Fatigue Musculoskeletal: leg pain Objective Exam Vital Signs Vital Signs Date Time Temp Pulse Resp B/P (MAP) Pulse Ox O2 Delivery O2 Flow Rate FiO2 06/12/21 20:30 96 Room Air 06/12/21 19:50 37.4 114 20 128/77 (94) Capillary Refill : General Appearance: No Apparent Distress, WD/WN, Anxious, Chronically ill HEENT: PERRL/EOMI, Normal ENT Inspection, Pharynx Normal Neck: Full Range of Motion, Normal Inspection, Non Tender, Supple, Carotid Bruit Respiratory: Chest Non Tender, Lungs Clear, Normal Breath Sounds, No Accessory Muscle Use, No Respiratory Distress Cardiovascular: Regular Rate, Rhythm, No Edema, No Gallop, No JVD, No Murmur, Normal Peripheral Pulses Gastrointestinal: Normal Bowel Sounds, No Organomegaly, No Pulsatile Mass, Non Tender, Soft Back: Normal Inspection, No CVA Tenderness, No Vertebral Tenderness Extremity: Normal Capillary Refill, Normal Inspection, Normal Range of Motion (Except right leg), Non Tender, No Calf Tenderness, No Pedal Edema Neurologic/Psychiatric: Alert, Oriented x3, No Motor/Sensory Deficits, Normal Mood/Affect, 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 FIM Transfers Therapy Code Descriptions/Definitions Functional [place] Measure: 0=Not Assessed/NA 4=Minimal Assistance 1=Total Assistance 5=Supervision or Setup 2=Maximal Assistance 6=Modified [place] 3=Moderate Assistance 7=Complete IndependenceSCALE: Activities may be completed with or without assistive devices. 4-Vxqverqxww-mxuhgvc completes the activity by him/herself with no assistance from a helper. 5-Set-up or Clean-up Assistance-helper sets up or cleans up; patient completes activity. [place] assists only prior to or following the activity. 4-Supervision or Touching Assistance-helper provides verbal cues and/or touching/steadying and/or contact guard assistance as patient completes activity. Assistance may be provided throughout the activity or intermittently. 3-Partial/Moderate Assistance-helper does LESS THAN HALF the effort. [place] lifts, holds or supports trunk or limbs, but provides less than half the effort. 2-Substantial/Maximal Assistance-helper does MORE THAN HALF the effort. [place] lifts or holds trunk or limbs and provides more than half the effort. 0-Yuzlpqodq-pebtkq does ALL the effort. Patient does none of the effort to complete the activity. Or, the assistance of 2 or more helpers is required for the patient to complete the activity. If activity was not attempted, code reason: 7-Patient Refused. 9-Not Applicable-not attempted and the patient did not perform the activity before the current illness, exacerbation or injury. 10-Not Attempted due to Environmental Limitations-(lack of equipment, weather restraints, etc.). 88-Not Attempted due to Medical Conditions or Safety Concerns. Roll Left to Right (QC): 3 Sit to Lying (QC): 3 Sit to Stand (QC): 3 Chair/Pqu-ca-Mkiax Xfer(QC): 3 Car Transfer (QC): 3 Gait Training Does the Patient Walk?: Yes Walk 10 feet (QC): 3 Walk 50 ft with 2 Turns(QC): 3 Walk 150 ft (QC): 88 Walking 10ft/uneven surface-QC: 3 Gait Assistive Device: FWW Wheelchair Training Does the Pt Use a Wheelchair?: No Wheel 50 ft with 2 turns (QC): 88 Wheel 150 ft (QC): 88 Stair Training #of Steps: 0 1 Step (curb) (QC): 88 4 Steps (QC): 88 12 Steps (QC): 88 Balance Picking up an Object (QC): 88 ADL-Treatment Eating (QC): 6 (Pt independent with breakfast.) Oral Hygiene (QC): 5 (Pt required set up assistance to place dentures in her mouth.) Shower/Bathe Self (QC): 3 (Pt able to wash BUEs, chest/abdomen, periarea, upper thighs and buttocks. Min A in stand at GBs. Assistance required to wash BLEs lower legs/feet.) Upper Body Dressing (QC): 5 (set up with warehouse order puller shirt and jacket) Lower Body Dressing (QC): 2 (Pt required assistance threading BLEs, assistance with pant hike. Pt able to perform some of pant hike.) On/Off Footwear (QC): 2 (Pt able to doff slip on shoes, assist to don. Based on clincial judgement, requires total assist with gripper socks.) Toileting Hygiene (QC): 3 (Pt able to manage hygiene, some assistance with pant hike.) Assessment/Plan Assessment and Plan Assess & Plan/Chief Complaint Assessment: Right hip fracture sustained after repair of original right hip fracture Multiple falls Acute urinary retention Terry catheter in place UTI Hyponatremia Advanced age Poor reserve Anemia post op acute blood loss type Postop constipation Plan: Inpatient rehab protocol Bowel regimen Complete antibiotics Urinary retention management 06/11/2021: Continue bladder regimen Maintain Terry catheter due to retention Monitor labs 06/12/21: Urology consult tomorrow Monitor closely PICC Venofer (1) Hip fracture, right (2) UTI (urinary tract infection) (3) Urinary retention (4) Terry catheter in place (5) Falls (6) Hyponatremia (7) Constipation FAUSTO DAVILA DO Jun 12, 2021 06:43
[2021-06-12 07:56] VITALS: BP 138/63
[2021-06-12] MEDS: DOCUSATE SODIUM 100 MG (COLACE) CAP PO SCH ×2 (08:26→20:45)
[2021-06-12] MEDS: SENNA W/DOCUSATE (SENOKOT S) TABLET PO SCH ×2 (08:26→20:45)
[2021-06-12] MEDS: polyethylene glycoL POWDER 17 GM (MIRALAX) PACK PO SCH ×2 (08:26→20:45)
[2021-06-12] MEDS: ASPIRIN E.C. 81 MG (ECOTRIN) TAB PO SCH ×2 (10:12→20:44)
[2021-06-12] MEDS: LACTOBACILLUS ACIDOPHILUS (PROBIOTIC) CAPSULE PO SCH ×2 (10:12→20:44)
[2021-06-12] MEDS: AMOXICILLIN 500 MG (POLYMOX) CAP PO SCH ×3 (10:12→20:44)
[2021-06-12] MEDS: TAMSULOSIN 0.4 MG (FLOMAX) CAP PO SCH (10:13)
[2021-06-12] MEDS: VANCOMYCIN 125 MG CAPSULE PO SCH ×2 (10:13→20:45)
[2021-06-12] MEDS: LIDOCAINE 4% (SALONPAS) PATCH TP SCH (10:13)
[2021-06-12] MEDS: SODIUM CHLORIDE 1 GM TABLET PO SCH ×3 (10:14→20:45)
[2021-06-12] MEDS ORDERED: CHLORASEPTIC LOZENGE MM PRN (13:30)
[2021-06-12 19:50] VITALS: BP 128/77
[2021-06-12] MEDS: MELATONIN 3 MG TABLET PO PRN (20:45)
[2021-06-12] MEDS: [UNRECOGNIZED DRUG - REMARK] TP SCH (20:47)
[2021-06-13 06:30] LABS: BASOPHILS % (AUTO) 1 % (0-10); EOSINOPHILS # (AUTO) 0.3 10^3/uL (0.0-0.3); EOSINOPHILS % (AUTO) 3 % (0-10); HEMATOCRIT 28 % (35-52); HEMOGLOBIN 9.5 g/dL (11.5-16.0); LYMPHOCYTES # (AUTO) 1.1 10^3/uL (1.0-4.0); LYMPHOCYTES % (AUTO) 14 % (12-44); MEAN CORPUSCULAR HEMOGLOBIN 31 pg (25-34); MEAN CORPUSCULAR HGB CONC 34 g/dL (32-36); MEAN CORPUSCULAR VOLUME 89 fL (80-99); MEAN PLATELET VOLUME 8.7 fL (9.0-12.2); MONOCYTES # (AUTO) 0.7 10^3/uL (0.0-1.0); MONOCYTES % (AUTO) 9 % (0-12); NEUTROPHILS # (AUTO) 5.9 10^3/uL (1.8-7.8); NEUTROPHILS % (AUTO) 73 % (42-75); PLATELET COUNT 483 10^3/uL (130-400); WHITE BLOOD COUNT 8.2 10^3/uL (4.3-11.0)
[2021-06-13] MEDS: CYANOCOBALAMIN 1,000 MCG (VITAMIN B-12) TABLET PO SCH (06:41)
[2021-06-13] MEDS: BETHANECHOL 25 MG (URECHOLINE) TAB PO SCH ×4 (06:41→20:23)
[2021-06-13 06:49] LABS: ALBUMIN 2.9 GM/DL (3.2-4.5); POTASSIUM 3.7 MMOL/L (3.6-5.0)
[2021-06-13 06:51] LABS: CALCIUM 8.7 MG/DL (8.5-10.1)
[2021-06-13 06:52] LABS: TOTAL PROTEIN 5.8 GM/DL (6.4-8.2)
[2021-06-13 06:54] LABS: BILIRUBIN,TOTAL 0.8 MG/DL (0.1-1.0)
[2021-06-13 06:55] LABS: CREATININE SERUM 0.5 MG/DL (0.60-1.30)
[2021-06-13 07:42] VITALS: BP 126/78
[2021-06-13] MEDS ORDERED: CYANOCOBALAMIN INJ 1000 MCG/ML IM ONE (08:00)
[2021-06-13] MEDS: LACTOBACILLUS ACIDOPHILUS (PROBIOTIC) CAPSULE PO SCH ×2 (08:14→20:23)
[2021-06-13] MEDS: VANCOMYCIN 125 MG CAPSULE PO SCH ×2 (08:14→20:23)
[2021-06-13] MEDS: AMOXICILLIN 500 MG (POLYMOX) CAP PO SCH ×3 (08:14→20:23)
[2021-06-13] MEDS: SODIUM CHLORIDE 1 GM TABLET PO SCH ×3 (08:14→20:26)
[2021-06-13] MEDS: ASPIRIN E.C. 81 MG (ECOTRIN) TAB PO SCH ×2 (08:14→20:23)
[2021-06-13] MEDS: TAMSULOSIN 0.4 MG (FLOMAX) CAP PO SCH (08:14)
[2021-06-13] MEDS: LIDOCAINE 4% (SALONPAS) PATCH TP SCH (08:15)
[2021-06-13] MEDS: LOPERAMIDE 2 MG (IMODIUM) TABLET PO PRN (08:21)
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
--- NOTE | 2021-06-13 09:02 | PM&R Progress Note ---
Subjective HPI/CC On Admission Date Seen by Provider: Jun 13, 2021 Time Seen by Provider: 09:00 Subjective/Events-last exam 06/13/21: Patient doing well Urology consulted Terry in place Urecholine maintained WBC normal IV iron infusion will be started after PICC placed tomorrow 06/12/21: Patient doing well Pain is controlled Urology will be consulted tomorrow Monitor closely Check meds and labs 06/11/2021: Patient doing well Settling in Refusing additional labs Pain is fairly well controlled Her 2 sons visited her today Check meds and labs Review of Systems General: Fatigue, Malaise Musculoskeletal: leg pain Objective Exam Vital Signs Vital Signs Date Time Temp Pulse Resp B/P (MAP) Pulse Ox O2 Delivery O2 Flow Rate FiO2 06/13/21 20:38 Room Air 06/13/21 20:12 36.4 97 18 147/77 (100) 95 Capillary Refill : General Appearance: No Apparent Distress, WD/WN, Anxious, Chronically ill HEENT: PERRL/EOMI, Normal ENT Inspection, Pharynx Normal Neck: Full Range of Motion, Normal Inspection, Non Tender, Supple, Carotid Bruit Respiratory: Chest Non Tender, Lungs Clear, Normal Breath Sounds, No Accessory Muscle Use, No Respiratory Distress Cardiovascular: Regular Rate, Rhythm, No Edema, No Gallop, No JVD, No Murmur, Normal Peripheral Pulses Gastrointestinal: Normal Bowel Sounds, No Organomegaly, No Pulsatile Mass, Non Tender, Soft Back: Normal Inspection, No CVA Tenderness, No Vertebral Tenderness Extremity: Normal Capillary Refill, Normal Inspection, Normal Range of Motion (Except right leg), Non Tender, No Calf Tenderness, No Pedal Edema Neurologic/Psychiatric: Alert, Oriented x3, No Motor/Sensory Deficits, Normal Mood/Affect, practice assistant 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 FIM Transfers Therapy Code Descriptions/Definitions Functional [place] Measure: 0=Not Assessed/NA 4=Minimal Assistance 1=Total Assistance 5=Supervision or Setup 2=Maximal Assistance 6=Modified [place] 3=Moderate Assistance 7=Complete IndependenceSCALE: Activities may be completed with or without assistive devices. 6-Eaiaeinjlr-qjbufem completes the activity by him/herself with no assistance from a helper. 5-Set-up or Clean-up Assistance-helper sets up or cleans up; patient completes activity. [place] assists only prior to or following the activity. 4-Supervision or Touching Assistance-helper provides verbal cues and/or touching/steadying and/or contact guard assistance as patient completes activi ty. Assistance may be provided throughout the activity or intermittently. 3-Partial/Moderate Assistance-helper does LESS THAN HALF the effort. [place] lifts, holds or supports trunk or limbs, but provides less than half the effort. 2-Substantial/Maximal Assistance-helper does MORE THAN HALF the effort. [place] lifts or holds trunk or limbs and provides more than half the effort. 2-Ufhqgzled-ctqqrp does ALL the effort. Patient does none of the effort to complete the activity. Or, the assistance of 2 or more helpers is required for the patient to complete the activity. If activity was not attempted, code reason: 7-Patient Refused. 9-Not Applicable-not attempted and the patient did not perform the activity before the current illness, exacerbation or injury. 10-Not Attempted due to Environmental Limitations-(lack of equipment, weather restraints, etc.). 88-Not Attempted due to Medical Conditions or Safety Concerns. Roll Left to Right (QC): 3 Sit to Lying (QC): 4 Sit to Stand (QC): 4 Chair/Afh-ek-Ulzcw Xfer(QC): 3 Car Transfer (QC): 3 Gait Training Does the Patient Walk?: Yes Distance: 75', 50', 25' x4 Walk 10 feet (QC): 4 Walk 50 ft with 2 Turns(QC): 4 Walk 150 ft (QC): 88 Walking 10ft/uneven surface-QC: 3 Gait Persons Needed: 1 Gait Assistive Device: FWW Wheelchair Training Does the Pt Use a Wheelchair?: No Wheel 50 ft with 2 turns (QC): 88 Wheel 150 ft (QC): 88 Stair Training #of Steps: 0 1 Step (curb) (QC): 88 4 Steps (QC): 88 12 Steps (QC): 88 Balance Picking up an Object (QC): 88 ADL-Treatment Eating (QC): 6 (Pt independent with breakfast.) Oral Hygiene (QC): 5 (Pt required set up assistance to place dentures in her mouth.) Shower/Bathe Self (QC): 3 (Pt able to wash BUEs, chest/abdomen, periarea, upper thighs and buttocks. Min A in stand at GBs. Assistance required to wash BLEs lower legs/feet.) Upper Body Dressing (QC): 5 (set up with lime puller shirt and jacket) Lower Body Dressing (QC): 2 (Pt required assistance threading BLEs, assistance with pant hike. Pt able to perform some of pant hike.) On/Off Footwear (QC): 2 (Pt able to doff slip on shoes, assist to don. Based on clincial judgement, requires total assist with gripper socks.) Toileting Hygiene (QC): 3 (Pt able to manage hygiene, some assistance with pant hike.) Assessment/Plan Assessment and Plan Assess & Plan/Chief Complaint Assessment: Right hip fracture sustained after repair of original right hip fracture Multiple falls Acute urinary retention Terry catheter in place UTI Hyponatremia Advanced age Poor reserve Anemia post op acute blood loss type Postop constipation Plan: Inpatient rehab protocol Bowel regimen Complete antibiotics Urinary retention management 06/11/2021: Continue bladder regimen Maintain Terry catheter due to retention Monitor labs 06/12/21: Urology consult tomorrow Monitor closely PICC Venofer 06/13/21: Monitor closely Urology PICC for IV iron infusions (1) Hip fracture, right (2) UTI (urinary tract infection) (3) Urinary retention (4) Terry catheter in place (5) Falls (6) Hyponatremia (7) Constipation FAUSTO DAVILA DO Jun 13, 2021 09:02
--- NOTE | 2021-06-13 10:16 | Occupational Ther Daily Note ---
OT Current Status-Daily Note Subjective Pt was lying in bed w/ HOB elevated eating breakfast. Pt stated she was ready for tx session. Pt easily distractible throughout session, requiring redirection to tasks/topic. Pt would often talk over OT as OT was providing education. Mental Status/Objective Patient Orientation: Person, Place, Situation Attachments: Terry Catheter ADL-Treatment Therapy Code Descriptions/Definitions Functional [place] Measure: 0=Not Assessed/NA 4=Minimal Assistance 1=Total Assistance 5=Supervision or Setup 2=Maximal Assistance 6=Modified [place] 3=Moderate Assistance 7=Complete IndependenceSCALE: Activities may be completed with or without assistive devices. 8-Ctlclisfyx-egxoshw completes the activity by him/herself with no assistance from a helper. 5-Set-up or Clean-up Assistance-helper sets up or cleans up; patient completes activity. [place] assists only prior to or following the activity. 4-Supervision or Touching Assistance-helper provides verbal cues and/or touching/steadying and/or contact guard assistance as patient completes activity. Assistance may be provided throughout the activity or intermittently. 3-Partial/Moderate Assistance-helper does LESS THAN HALF the effort. [place] lifts, holds or supports trunk or limbs, but provides less than half the effort. 2-Substantial/Maximal Assistance-helper does MORE THAN HALF the effort. [place] lifts or holds trunk or limbs and provides more than half the effort. 4-Wjgadwhvh-aikquk does ALL the effort. Patient does none of the effort to complete the activity. Or, the assistance of 2 or more helpers is required for the patient to complete the activity. If activity was not attempted, code reason: 7-Patient Refused. 9-Not Applicable-not attempted and the patient did not perform the activity before the current illness, exacerbation or injury. 10-Not Attempted due to Environmental Limitations-(lack of equipment, weather restraints, etc.). 88-Not Attempted due to Medical Conditions or Safety Concerns. Eating (QC): 6 (IND with breakfast.) Lower Body Dressing (QC): 4 (Pt required CGA in stand. utilized a silk worker during task. ) On/Off Footwear: 4 (Pt was able to haylie/doff L foot with ease, required sock aide to haylie/doff gripper socks R foot, w/ several VC's for skill and function during task. ) Other Treatment Pt was lying in bed w/ HOB elevated eating breakfast. Pt stated she was ready for tx session. Pt likes to talk, required redirection during entire tx session to stay on task. Pt finished breakfast at beginning of tx session, see above QC. Pt was reminded of hip precautions before tx session began, w/ pt repeating precautions back to OT, required some verbal cues throughout tx to adhere to precautions. Pt performed bed mobility to sit EOB w/ VC's. OT provided education on AE. Pt participated in LBD w/ silk worker and footwear w/ silk worker and sock aide at EOB, see above QC's. Pt performed functional mobility w/ FWW from EOB to sink side at [facility] for safety. Pt performed washing face for grooming task sink side w/ FWW at [facility] for safety. Pt was taken to therapy gym by w/c. Pt participated in arm bike exercise at 20 watt resistance for 6 minutes, taking x6 rest breaks in w/c. Pt was taken back to room. Pt transferred from w/c to FWW. Pt performed fun ctional mobility from room to EOB w/ FWW at [facility]. Post tx session pt was lying supine in bed, call light within reach, and all needs met. Education OT Patient Education: Correct positioning, Energy conservation, Modified ADL techniques, Progress toward Goal/Update tx plan, Purpose of tx/functional activities, Reviewed precautions, Safety issues, Use of adapted equipment, W/C management Teaching Recipient: Patient Teaching Methods: Demonstration, Discussion Response to Teaching: Verbalize Understanding, Return Demonstration OT Short Term Goals Short Term Goals Time Frame: Jun 22, 2021 Toileting hygiene: 4 Shower/bathe self: 4 Lower body dressin Putting on/taking off footwear: 4 OT Urgent Care Nurse Practitioner Goals Senior Living Goals Time Frame: Jul 01, 2021 Eating (QC): 6 Oral Hygiene (QC): 6 Toileting Hygiene (QC): 6 Shower/Bathe Self (QC): 6 Upper Body Dressing (QC): 6 Lower Body Dressing (QC): 6 On/Off Footwear (QC): 6 Additional Goals: 1-Demonstrate ADL Tasks, 2-Verbalize Understanding, 3- ImproveStrength/Etienne 1=Demonstrate adherence to instructed precautions during ADL tasks. 2=Patient will verbalize/demonstrate understanding of assistive devices/modifications for ADL. 3=Patient will improve strength/tolerance for activity to enable patient to perform ADL's. OT Education/Plan Problem List/Assessment Assessment: Decreased Activ Tolerance, Decreased UE Strength, Impaired Coordination, Impaired Funct Balance, Impaired I ADL's, Impaired Self-Care Skills Discharge Recommendations Plan/Recommendations: Continue POC Treatment Plan/Plan of Care Patient would benefit from OT for education, treatment and training to promote independence in ADL's, mobility, safety and/or upper extremity function for ADL's. Plan of Care: ADL Retraining, Functional Mobility, Group Exercise/Act as Ind, UE Funct Exercise/Act Treatment Duration: Jul 01, 2021 Frequency: At least 5 of 7 days/Wk (IRF) Estimated Hrs Per Day: 1.5 hours per day Agreement: Yes Rehab Potential: Good Time/GCodes Start Time: 09:30 Stop Time: 10:30 Total Time Billed (hr/min): 60 Billed Treatment Time 1 Visit, ADL 3 (45'), EX (15') PANCHO VAZQUEZ OT Jun 13, 2021 10:16
[2021-06-13] MEDS: DOCUSATE SODIUM 100 MG (COLACE) CAP PO SCH ×2 (10:27→20:45)
[2021-06-13] MEDS: polyethylene glycoL POWDER 17 GM (MIRALAX) PACK PO SCH ×2 (10:27→20:45)
[2021-06-13] MEDS: SENNA W/DOCUSATE (SENOKOT S) TABLET PO SCH ×2 (10:28→20:45)
--- NOTE | 2021-06-13 11:49 | CONSULTATION REPORT ---
DATE OF SERVICE: 06/13/2021 ATTENDING PHYSICIAN: Dr. Abarca. SUMMARY: This is a very pleasant 85 pretty sharp lady recovering from surgery on her right hip fracture that occurred on 06/08/2021. She required a Terry catheter due to retention and failed trial of voiding. She is actually now on Flomax 0.4 mg daily and Urecholine 25 mg q.i.d. She tolerates them well. She does not have any further significant voiding symptoms prior to this episode at home, but she said that all her life she has never completely emptied her bladder whatever that means. I reviewed her history and physical. IMPRESSION: Urinary retention, neurogenic. RECOMMENDATIONS: 1. Continue Flomax and Urecholine. 2. We will give a trial of voiding. Follow up with a bladder scan and manage accordingly. Job ID: [id number] DocumentID: [id number] Dictated Date: 06/13/2021 10:07:42 Club Steward Date: 06/13/2021 11:48:33 Dictated By: JOSE BOYD MD
--- NOTE | 2021-06-13 13:36 | Occupational Ther Daily Note ---
OT Current Status-Daily Note Subjective Pt was lying supine upon OT arrival. Pt agreed to tx session. Mental Status/Objective Patient Orientation: Person, Place, Time, Situation Attachments: Terry Catheter ADL-Treatment Therapy Code Descriptions/Definitions Functional [place] Measure: 0=Not Assessed/NA 4=Minimal Assistance 1=Total Assistance 5=Supervision or Setup 2=Maximal Assistance 6=Modified [place] 3=Moderate Assistance 7=Complete IndependenceSCALE: Activities may be completed with or without assistive devices. 1-Ilhrijwvnh-mznazme completes the activity by him/herself with no assistance from a helper. 5-Set-up or Clean-up Assistance-helper sets up or cleans up; patient completes activity. [place] assists only prior to or following the activity. 4-Supervision or Touching Assistance-helper provides verbal cues and/or touching/steadying and/or contact guard assistance as patient completes activity. Assistance may be provided throughout the activity or intermittently. 3-Partial/Moderate Assistance-helper does LESS THAN HALF the effort. [place] lifts, holds or supports trunk or limbs, but provides less than half the effort. 2-Substantial/Maximal Assistance-helper does MORE THAN HALF the effort. [place] lifts or holds trunk or limbs and provides more than half the effort. 3-Lqeatyatg-gxfqew does ALL the effort. Patient does none of the effort to complete the activity. Or, the assistance of 2 or more helpers is required for the patient to complete the activity. If activity was not attempted, code reason: 7-Patient Refused. 9-Not Applicable-not attempted and the patient did not perform the activity before the current illness, exacerbation or injury. 10-Not Attempted due to Environmental Limitations-(lack of equipment, weather restraints, etc.). 88-Not Attempted due to Medical Conditions or Safety Concerns. Other Treatment Pt was lying supine upon OT arrival. Pt agreed to tx session. Pt participated while lying in bed w/ HOB elevated in the following medium resistance Thera-band exercises, x2 rounds, x10 reps, to support strength and endurance for ADL's: shoulder abduction, shoulder flexion, shoulder external rotation, shoulder horizontal abduction, elbow flexion, and elbow extension. Pt was able to tell her stories as we went through tx session, pt did not need as much redirection for smaller session on this date. Post tx session, pt seated in bed, call light within reach, and all needs met. Education OT Patient Education: Correct positioning, Energy conservation, Exercise program, Home exercise program, Progress toward Goal/Update tx plan, Purpose of tx/functional activities, Reviewed precautions Teaching Recipient: Patient Teaching Methods: Demonstration, Handout Response to Teaching: Return Demonstration OT Short Term Goals Short Term Goals Time Frame: Jun 22, 2021 Toileting hygiene: 4 Shower/bathe self: 4 Lower body dressin Putting on/taking off footwear: 4 OT Chcf Goals Chcf Goals Time Frame: Jul 01, 2021 Eating (QC): 6 Oral Hygiene (QC): 6 Toileting Hygiene (QC): 6 Shower/Bathe Self (QC): 6 Upper Body Dressing (QC): 6 Lower Body Dressing (QC): 6 On/Off Footwear (QC): 6 Additional Goals: 1-Demonstrate ADL Tasks, 2-Verbalize Understanding, 3- ImproveStrength/Etienne 1=Demonstrate adherence to instructed precautions during ADL tasks. 2=Patient will verbalize/demonstrate understanding of assistive devices/modifications for ADL. 3=Patient will improve strength/tolerance for activity to enable patient to perform ADL's. OT Education/Plan Problem List/Assessment Assessment: Decreased Activ Tolerance, Decreased Safety Aware, Decreased UE Strength, Impaired Bed Mobility, Impaired Coordination, Impaired Funct Balance, Impaired I ADL's, Impaired Self-Care Skills Discharge Recommendations Plan/Recommendations: Continue POC Treatment Plan/Plan of Care Patient would benefit from OT for education, treatment and training to promote independence in ADL's, mobility, safety and/or upper extremity function for ADL's. Plan of Care: ADL Retraining, Functional Mobility, Group Exercise/Act as Ind, UE Funct Exercise/Act Treatment Duration: Jul 01, 2021 Frequency: At least 5 of 7 days/Wk (IRF) Estimated Hrs Per Day: 1.5 hours per day Agreement: Yes Rehab Potential: Good Time/GCodes Start Time: 13:00 Stop Time: 13:30 Total Time Billed (hr/min): 30 Billed Treatment Time 1 Visit, EX 2 PANCHO VAZQUEZ OT Jun 13, 2021 13:36
--- NOTE | 2021-06-13 13:58 | Physical Therapy Daily Note ---
PT Daily Note-Current Subjective Pt in bed upon arrival and agrees to tx. Pt has pain in R hip but doesn't rate out of 10. Pt states when she is in bed she will do different exercises, including flexing knees and hips "up to her chest". Pt instructed in hip precautions at this time. Mental Status Patient Orientation: Person, Confused, Place Transfers SCALE: Activities may be completed with or without assistive devices. 6-Hndudrykea-cnyssmu completes the activity by him/herself with no assistance from a helper. 5-Set-up or Clean-up Assistance-helper sets up or cleans up; patient completes activity. [place] assists only prior to or following the activity. 4-Supervision or Touching Assistance-helper provides verbal cues and/or touching/steadying and/or contact guard assistance as patient completes activity. Assistance may be provided throughout the activity or intermittently. 3-Partial/Moderate Assistance-helper does LESS THAN HALF the effort. [place] lifts, holds or supports trunk or limbs, but provides less than half the effort. 2-Substantial/Maximal Assistance-helper does MORE THAN HALF the effort. [place] lifts or holds trunk or limbs and provides more than half the effort. 3-Xtbmsbsfh-mfjxnx does ALL the effort. Patient does none of the effort to complete the activity. Or, the assistance of 2 or more helpers is required for the patient to complete the activity. If activity was not attempted, code reason: 7-Patient Refused. 9-Not Applicable-not attempted and the patient did not perform the activity before the current illness, exacerbation or injury. 10-Not Attempted due to Environmental Limitations-(lack of equipment, weather restraints, etc.). 88-Not Attempted due to Medical Conditions or Safety Concerns. Weight Bearing Right Lower Extremity: Right Weight Bearing/Tolerated Gait Training Does the Patient Walk?: Yes Distance: 150', 100' Walk 10 feet (QC): 4 Walk 50 ft with 2 Turns(QC): 4 Walk 150 ft (QC): 4 Gait Persons Needed: 1 Gait Assistive Device: FWW Pt has slow, antalgic gait with poor B foot clearance. VC for flexing LE and upright posture Exercises Seated Therapy Exercises: Ankle pumps, Long arc quads Seated Reps: 10 Standing: Hamstring curls, Marching Standing Reps: 10 Treatments Pt supine to sit and sit to stand CGA, VC for precautions. Pt amb 100' then gad6hskb 150' on ARU with standing rest breaks. During standing rest breaks pt completes exercises. Pt amb back to room and sits EOB to complete seated ex. Pt sit to supine CGA and is remaining in bed with all needs met, call light in hand. Assessment Current Status: Fair Progress Pt extremely confused throughout tx, easily loses focus and requires VC to keep focused. Pt re-educated on hip precautions PT Short Term Goals Short Term Goals Time Frame: Jun 25, 2021 Roll Left & Right: 4 Sit to lyin Lying to sitting on side of be: 4 Sit to stand: 4 Chair/tpx-kx-ixvbu transfer: 4 Toilet transfer: 4 Car transfer: 4 Walk 10 feet: 4 Walk 50 feet with two turns: 4 Walk 150 feet: 4 Walking 10ft on uneven surface: 4 1 step (curb): 3 4 steps: 3 12 steps: 3 Picking up objects: 4 Does pt use a wc or scooter: No PT Half-Way Goals Radiology Transcriptionist Goals PT Radiology Transcriptionist Goals Time Frame: Jul 23, 2021 Roll Left & Right (QC): 5 Sit to Lying (QC): 5 Lying-Sitting on Side/Bed(QC): 5 Sit to Stand (QC): 5 Chair/Kwk-ie-Frwjk Xfer(QC): 5 Toilet Transfer (QC): 5 Car Transfer (QC): 5 Does the Patient Walk: Yes Walk 10 feet (QC): 5 Walk 50ft with 2 Turns (QC): 5 Walk 150 ft (QC): 5 Walking 10ft on Uneven Surface: 5 1 Step (curb) (QC): 4 4 Steps (QC): 4 12 Steps (QC): 4 Picking up an Object (QC): 5 Does the Pt use WC or Scooter?: No Wheel 50 feet with 2 turns (QC: 88 Wheel 150 feet: 88 PT Plan Treatment/Plan Treatment Plan: Continue Plan of Care Treatment Plan: Bed Mobility, Concurrent Therapy, Education, Functional Activity Etienne, Functional Strength, Group Therapy, Gait, Safety, Therapeutic Exercise, Transfers Treatment Duration: Aug 24, 2021 Frequency: At least 5 of 7 days/Wk (IRF) Estimated Hrs Per Day: 1.5 hours per day Patient and/or Family Agrees t: Yes Time/GCodes Time In: 1330 Time Out: 1400 Total Billed Treatment Time: 30 Total Billed Treatment 1, GT, EX RIVERA,ESTELA VITAMIN MANAGER Jun 13, 2021 13:58
[2021-06-13 20:12] VITALS: BP 147/77
[2021-06-13] MEDS: [UNRECOGNIZED DRUG - REMARK] TP SCH (20:23)
[2021-06-13] MEDS: IRON SUCROSE 200 MG/10 ML (VENOFER) VIAL IV SCH (20:27)
[2021-06-14] MEDS: CYANOCOBALAMIN 1,000 MCG (VITAMIN B-12) TABLET PO SCH (06:30)
[2021-06-14] MEDS: BETHANECHOL 25 MG (URECHOLINE) TAB PO SCH ×4 (06:30→20:54)
[2021-06-14 07:38] VITALS: BP 142/63
--- NOTE | 2021-06-14 09:04 | Physical Therapy Daily Note ---
PT Daily Note-Current Subjective Pt laying Supine in bed upon arrival. Pt agrees to PT but needs redirection many times to stay focused on tx. Pain Location: Right Location Body Site: Thigh Pain Description: Ache, Tightness Comment: Pain reported but not rated. Mental Status Patient Orientation: Person, Confused Transfers SCALE: Activities may be completed with or without assistive devices. 8-Lteixexzqj-tknzpxi completes the activity by him/herself with no assistance from a helper. 5-Set-up or Clean-up Assistance-helper sets up or cleans up; patient completes activity. [place] assists only prior to or following the activity. 4-Supervision or Touching Assistance-helper provides verbal cues and/or touching/steadying and/or contact guard assistance as patient completes activity. Assistance may be provided throughout the activity or intermittently. 3-Partial/Moderate Assistance-helper does LESS THAN HALF the effort. [place] lifts, holds or supports trunk or limbs, but provides less than half the effort. 2-Substantial/Maximal Assistance-helper does MORE THAN HALF the effort. [place] lifts or holds trunk or limbs and provides more than half the effort. 8-Ehthbgyvv-cjfxvi does ALL the effort. Patient does none of the effort to complete the activity. Or, the assistance of 2 or more helpers is required for the patient to complete the activity. If activity was not attempted, code reason: 7-Patient Refused. 9-Not Applicable-not attempted and the patient did not perform the activity before the current illness, exacerbation or injury. 10-Not Attempted due to Environmental Limitations-(lack of equipment, weather restraints, etc.). 88-Not Attempted due to Medical Conditions or Safety Concerns. Lying to Sitting/Side of Bed(Q: 4 Sit to Stand (QC): 4 Weight Bearing Right Lower Extremity: Right Weight Bearing/Tolerated Gait Training Does the Patient Walk?: Yes Distance: 175', 125' Walk 10 feet (QC): 5 Walk 50 ft with 2 Turns(QC): 5 Walk 150 ft (QC): 5 Gait Persons Needed: 1 Gait Assistive Device: FWW Slow but steady marvin. Exercises Seated Therapy Exercises: Ankle pumps, Long arc quads, Hip flexion, Glut set Seated Reps: 15 Treatments TF from Supine to EOB to standing. Pt declines need for BR. Amb. in hallway with RB as needed for fatigue & discomfort. Pt completes Seated EX with RB as needed. Pt amb. in hallway and returns to room to rest in recliner. Pt is repositioned to comfort. All needs met, call light in hand. Assessment Current Status: Fair Progress Pt remains confused and needs VC for Hip Precautions. Pt like to talk and needs redirection to stay on task. PT Short Term Goals Short Term Goals Time Frame: Jun 25, 2021 Roll Left & Right: 4 Sit to lyin Lying to sitting on side of be: 4 Sit to stand: 4 Chair/jor-cc-ycztu transfer: 4 Toilet transfer: 4 Car transfer: 4 Walk 10 feet: 4 Walk 50 feet with two turns: 4 Walk 150 feet: 4 Walking 10ft on uneven surface: 4 1 step (curb): 3 4 steps: 3 12 steps: 3 Picking up objects: 4 Does pt use a wc or scooter: No PT Senior Care Goals [place] Worker Goals PT [employer] Worker Goals Time Frame: Jul 23, 2021 Roll Left & Right (QC): 5 Sit to Lying (QC): 5 Lying-Sitting on Side/Bed(QC): 5 Sit to Stand (QC): 5 Chair/Gon-fl-Wwxcm Xfer(QC): 5 Toilet Transfer (QC): 5 Car Transfer (QC): 5 Does the Patient Walk: Yes Walk 10 feet (QC): 5 Walk 50ft with 2 Turns (QC): 5 Walk 150 ft (QC): 5 Walking 10ft on Uneven Surface: 5 1 Step (curb) (QC): 4 4 Steps (QC): 4 12 Steps (QC): 4 Picking up an Object (QC): 5 Does the Pt use WC or Scooter?: No Wheel 50 feet with 2 turns (QC: 88 Wheel 150 feet: 88 PT Plan Problem List Problem List: Activity Tolerance, Safety, Gait Treatment/Plan Treatment Plan: Continue Plan of Care Treatment Plan: Bed Mobility, Concurrent Therapy, Education, Functional Activity Etienne, Functional Strength, Group Therapy, Gait, Safety, Therapeutic Exercise, Transfers Treatment Duration: Aug 24, 2021 Frequency: At least 5 of 7 days/Wk (IRF) Estimated Hrs Per Day: 1.5 hours per day Patient and/or Family Agrees t: Yes Safety Risks/Education Patient Education: Gait Training, Transfer Techniques, Reviewed Precautions, Correct Positioning, Safety Issues Teaching Recipient: Patient Teaching Methods: Discussion Response to Teaching: Reinforcement Needed Time/GCodes Time In: 800 Time Out: 900 Total Billed Treatment Time: 60 Total Billed Treatment 1, GT (20m), FA (15m)& EX x2 (25m) ALLAN CARDOZO BOBBIN WASHER Jun 14, 2021 09:04
--- NOTE | 2021-06-14 09:09 | PM&R Progress Note ---
Subjective HPI/CC On Admission Date Seen by Provider: Jun 14, 2021 Time Seen by Provider: 09:15 Subjective/Events-last exam 06/14/21: Patient feels good Kpad to neck will be provided for muscle spasm No other pain reported Loose BM Terry out and voiding well Confused last night 06/13/21: Patient doing well Urology consulted Terry in place Urecholine maintained WBC normal IV iron infusion will be started after PICC placed tomorrow 06/12/21: Patient doing well Pain is controlled Urology will be consulted tomorrow Monitor closely Check meds and labs 06/11/2021: Patient doing well Settling in Refusing additional labs Pain is fairly well controlled Her 2 sons visited her today Check meds and labs Review of Systems General: Fatigue, Malaise Neurological: Weakness, Incoordination Objective Exam Vital Signs Vital Signs Date Time Temp Pulse Resp B/P (MAP) Pulse Ox O2 Delivery O2 Flow Rate FiO2 06/15/21 03:45 38.0 06/14/21 20:28 81 18 114/54 (74) 96 Room Air Capillary Refill : General Appearance: No Apparent Distress, WD/WN, Anxious, Chronically ill HEENT: PERRL/EOMI, Normal ENT Inspection, Pharynx Normal Neck: Full Range of Motion, Normal Inspection, Non Tender, Supple, Carotid Bruit Respiratory: Chest Non Tender, Lungs Clear, Normal Breath Sounds, No Accessory Muscle Use, No Respiratory Distress Cardiovascular: Regular Rate, Rhythm, No Edema, No Gallop, No JVD, No Murmur, Normal Peripheral Pulses Gastrointestinal: Normal Bowel Sounds, No Organomegaly, No Pulsatile Mass, Non Tender, Soft Back: Normal Inspection, No CVA Tenderness, No Vertebral Tenderness Extremity: Normal Capillary Refill, Normal Inspection, Normal Range of Motion (Except right leg), Non Tender, No Calf Tenderness, No Pedal Edema Neurologic/Psychiatric: Alert, Oriented x3, No Motor/Sensory Deficits, Normal Mood/Affect, commercial shrimping captain II-XII Norm as Tested, Abnormal Gait, Motor Weakness (Right leg) Skin: Normal Color, Warm/Dry Lymphatic: No Adenopathy Results/Procedures Lab Patient resulted labs reviewed. FIM Transfers Therapy Code Descriptions/Definitions Functional [place] Measure: 0=Not Assessed/NA 4=Minimal Assistance 1=Total Assistance 5=Supervision or Setup 2=Maximal Assistance 6=Modified [place] 3=Moderate Assistance 7=Complete IndependenceSCALE: Activities may be completed with or without assistive devices. 8-Smaodiesxi-kyxwwlb completes the activity by him/herself with no assistance from a helper. 5-Set-up or Clean-up Assistance-helper sets up or cleans up; patient completes activity. [place] assists only prior to or following the activity. 4-Supervision or Touching Assistance-helper provides verbal cues and/or touching/steadying and/or contact guard assistance as patient completes activity. Assistance may be provided throughout the activity or intermittently. 3-Partial/Moderate Assistance-helper does LESS THAN HALF the effort. [place] lifts, holds or supports trunk or limbs, but provides less than half the effort. 2-Substantial/Maximal Assistance-helper does MORE THAN HALF the effort. [place] lifts or holds trunk or limbs and provides more than half the effort. 9-Kdbkzmzaz-jjqdku does ALL the effort. Patient does none of the effort to complete the activity. Or, the assistance of 2 or more helpers is required for the patient to complete the activity. If activity was not attempted, code reason: 7-Patient Refused. 9-Not Applicable-not attempted and the patient did not perform the activity before the current illness, exacerbation or injury. 10-Not Attempted due to Environmental Limitations-(lack of equipment, weather restraints, etc.). 88-Not Attempted due to Medical Conditions or Safety Concerns. Roll Left to Right (QC): 3 Sit to Lying (QC): 4 Sit to Stand (QC): 4 Chair/Ezx-va-Qnlhu Xfer(QC): 3 Car Transfer (QC): 3 Gait Training Does the Patient Walk?: Yes Distance: 175', 125' Walk 10 feet (QC): 5 Walk 50 ft with 2 Turns(QC): 5 Walk 150 ft (QC): 5 Walking 10ft/uneven surface-QC: 3 Gait Persons Needed: 1 Gait Assistive Device: FWW Wheelchair Training Does the Pt Use a Wheelchair?: No Wheel 50 ft with 2 turns (QC): 88 Wheel 150 ft (QC): 88 Stair Training #of Steps: 0 1 Step (curb) (QC): 88 4 Steps (QC): 88 12 Steps (QC): 88 Balance Picking up an Object (QC): 88 ADL-Treatment Eating (QC): 6 (IND with breakfast.) Shower/Bathe Self (QC): 3 (Pt able to wash BUEs, chest/abdomen, periarea, upper thighs and buttocks. Min A in stand at GBs. Assistance required to wash BLEs lower legs/feet.) Upper Body Dressing (QC): 5 (set up with thread pulling machine attendant shirt and jacket) Lower Body Dressing (QC): 4 (Pt required CGA in stand. utilized a thread drawer during task. ) On/Off Footwear (QC): 4 (Pt was able to haylie/doff L foot with ease, required sock aide to haylie/doff gripper socks R foot, w/ several VC's for skill and fun ction during task. ) Toileting Hygiene (QC): 3 (Pt able to manage hygiene, some assistance with pant hike.) Assessment/Plan Assessment and Plan Assess & Plan/Chief Complaint Assessment: Right hip fracture sustained after repair of original right hip fracture Multiple falls Acute urinary retention Terry catheter in place UTI Hyponatremia Advanced age Poor reserve Anemia post op acute blood loss type Postop constipation Plan: Inpatient rehab protocol Bowel regimen Complete antibiotics Urinary retention management 06/11/2021: Continue bladder regimen Maintain Terry catheter due to retention Monitor labs 06/12/21: Urology consult tomorrow Monitor closely PICC Venofer 06/13/21: Monitor closely Urology PICC for IV iron infusions 06/14/21: Voiding well with catheter out Monitor closely (1) Hip fracture, right (2) UTI (urinary tract infection) (3) Urinary retention (4) Terry catheter in place (5) Falls (6) Hyponatremia (7) Constipation FAUSTO DAVILA DO Jun 14, 2021 09:09
[2021-06-14] MEDS: AMOXICILLIN 500 MG (POLYMOX) CAP PO SCH ×3 (09:15→20:54)
[2021-06-14] MEDS: TAMSULOSIN 0.4 MG (FLOMAX) CAP PO SCH (09:16)
[2021-06-14] MEDS: VANCOMYCIN 125 MG CAPSULE PO SCH ×2 (09:16→20:54)
[2021-06-14] MEDS: LACTOBACILLUS ACIDOPHILUS (PROBIOTIC) CAPSULE PO SCH ×2 (09:16→20:54)
[2021-06-14] MEDS: ASPIRIN E.C. 81 MG (ECOTRIN) TAB PO SCH ×2 (09:16→20:54)
[2021-06-14] MEDS: polyethylene glycoL POWDER 17 GM (MIRALAX) PACK PO SCH ×2 (09:18→20:56)
[2021-06-14] MEDS: DOCUSATE SODIUM 100 MG (COLACE) CAP PO SCH ×2 (09:18→20:56)
[2021-06-14] MEDS: SODIUM CHLORIDE 1 GM TABLET PO SCH ×3 (09:19→20:54)
[2021-06-14] MEDS: SENNA W/DOCUSATE (SENOKOT S) TABLET PO SCH ×2 (09:19→20:56)
[2021-06-14] MEDS: LIDOCAINE 4% (SALONPAS) PATCH TP SCH (09:20)
--- NOTE | 2021-06-14 10:34 | Occupational Ther Daily Note ---
OT Current Status-Daily Note Subjective Pt was seated in chair upon OT arrival. Pt stated PT assisted w/ pulling chair up for her so she could see out of her doorway to "people watch." Pt stated she would participate in tx session today. However, when she does shower, she prefers to utilize either straight vinegar or straight Vodka. She feels soap c auses dry skin, skin rashes, skin irritation, and is not sterile enough. Pt agreed to use soap for shower task during tx session as long as it was already mixed up and diluted in a plastic tub for her to dip her rag into. Mental Status/Objective Patient Orientation: Person, Place, Situation Attachments: IV ADL-Treatment Therapy Code Descriptions/Definitions Functional [place] Measure: 0=Not Assessed/NA 4=Minimal Assistance 1=Total Assistance 5=Supervision or Setup 2=Maximal Assistance 6=Modified [place] 3=Moderate Assistance 7=Complete IndependenceSCALE: Activities may be completed with or without assistive devices. 5-Xweiofurfz-zdjrafq completes the activity by him/herself with no assistance from a helper. 5-Set-up or Clean-up Assistance-helper sets up or cleans up; patient completes activity. [place] assists only prior to or following the activity. 4-Supervision or Touching Assistance-helper provides verbal cues and/or touching/steadying and/or contact guard assistance as patient completes activity. Assistance may be provided throughout the activity or intermittently. 3-Partial/Moderate Assistance-helper does LESS THAN HALF the effort. [place] lifts, holds or supports trunk or limbs, but provides less than half the effort. 2-Substantial/Maximal Assistance-helper does MORE THAN HALF the effort. [place] lifts or holds trunk or limbs and provides more than half the effort. 3-Vzmmriacm-zbpwmy does ALL the effort. Patient does none of the effort to complete the activity. Or, the assistance of 2 or more helpers is required for the patient to complete the activity. If activity was not attempted, code reason: 7-Patient Refused. 9-Not Applicable-not attempted and the patient did not perform the activity before the current illness, exacerbation or injury. 10-Not Attempted due to Environmental Limitations-(lack of equipment, weather restraints, etc.). 88-Not Attempted due to Medical Conditions or Safety Concerns. Shower/Bathe Self (QC): 4 (Pt required CGA for cleaning backside and armand area. Pt also utilized a long handled sponge during task to wash and dry R LE to abide by hip precautions. ) Upper Body Dressing (QC): 5 (Pt required set up. ) Lower Body Dressing (QC): 4 (Pt required CGA for donning/doffing pants. Pt also utilized a threader operator to abide by hip precautions. ) On/Off Footwear: 5 (Pt required set up, utilizing a threader operator to doff slip on shoes and a shoe horn to haylie slip on shoes.) Other Treatment Pt was seated in chair upon OT arrival. Pt stated PT assisted w/ pulling chair up for her so she could see out of her doorway to "people watch." Pt stated she would participate in tx session today. However, when she does shower, she prefers to utilize either straight vinegar or straight Vodka. She feels soap causes dry skin, skin rashes, skin irritation, and is not sterile enough. Pt agreed to use soap for shower task during tx session as long as it was already mixed up and diluted in a plastic tub for her to dip her rag into. Pt performed functional mobility w/ FWW from chair to SC at [facility] for safety. Pt performed shower, UBD, LBD, and footwear, see above QC's. Pt required verbal cues to adhere to hip precautions throughout ADL tx. Pt participated in brushing hair sink side while seated in w/c for grooming task at [facility]. Pt was educated and instructed in skilled w/c mobility from sink side to chair at [facility] w/ several VC for skill and safety. Pt transferred from w/c to chair w/ FWW at [facility]. Pt was redirected several times during tx session to complete tasks efficiently. Post tx session, pt was seated in chair, call light within reach, and all needs met. Education OT Patient Education: Correct positioning, Energy conservation, Modified ADL techniques, Progress toward Goal/Update tx plan, Purpose of tx/functional activities, Reviewed precautions, Rehab process, Safety issues, Transfer techniques, Use of adapted equipment, W/C management Teaching Recipient: Patient Teaching Methods: Demonstration, Discussion Response to Teaching: Verbalize Understanding, Return Demonstration, Reinforcement Needed OT Short Term Goals Short Term Goals Time Frame: Jun 22, 2021 Toileting hygiene: 4 Shower/bathe self: 4 Lower body dressin Putting on/taking off footwear: 4 OT Seismograph Supervisor Goals Mcc Goals Time Frame: Jul 01, 2021 Eating (QC): 6 Oral Hygiene (QC): 6 Toileting Hygiene (QC): 6 Shower/Bathe Self (QC): 6 Upper Body Dressing (QC): 6 Lower Body Dressing (QC): 6 On/Off Footwear (QC): 6 Additional Goals: 1-Demonstrate ADL Tasks, 2-Verbalize Understanding, 3- ImproveStrength/Etienne 1=Demonstrate adherence to instructed precautions during ADL tasks. 2=Patient will verbalize/demonstrate understanding of assistive devices/modifications for ADL. 3=Patient will improve strength/tolerance for activity to enable patient to perform ADL's. OT Education/Plan Problem List/Assessment Assessment: Decreased Activ Tolerance, Decreased Safety Aware, Decreased UE Strength, Impaired Coordination, Impaired Funct Balance, Impaired I ADL's, Impaired Self-Care Skills Discharge Recommendations Plan/Recommendations: Continue POC Treatment Plan/Plan of Care Patient would benefit from OT for education, treatment and training to promote independence in ADL's, mobility, safety and/or upper extremity function for ADL's. Plan of Care: ADL Retraining, Functional Mobility, Group Exercise/Act as Ind, UE Funct Exercise/Act Treatment Duration: Jul 01, 2021 Frequency: At least 5 of 7 days/Wk (IRF) Estimated Hrs Per Day: 1.5 hours per day Agreement: Yes Rehab Potential: Good Time/GCodes Start Time: 09:30 Stop Time: 10:30 Total Time Billed (hr/min): 60 Billed Treatment Time 1 Visit, ADL 4 PANCHO VAZQUEZ OT Jun 14, 2021 10:34
--- NOTE | 2021-06-14 10:51 | Progress Note - Urology ---
Progress Note-Urology Progress Notes/Assess & Plan Progress/Assessment & Plan VOIDING WELL AND EMPTIES WELL. TOMORROW START WEANING OFF FLOMAX AND URECHOLINE ONE AT A TIME Final Diagnosis RETENTION JOSE BOYD MD Jun 14, 2021 10:51
--- NOTE | 2021-06-14 11:45 | Occupational Ther Daily Note ---
OT Current Status-Daily Note Subjective Pt was seated in chair w/ legs raised, upon OT arrival. Pt stated she was ready for second tx session for the day. Mental Status/Objective Patient Orientation: Person, Place, Situation Attachments: IV ADL-Treatment Therapy Code Descriptions/Definitions Functional [place] Measure: 0=Not Assessed/NA 4=Minimal Assistance 1=Total Assistance 5=Supervision or Setup 2=Maximal Assistance 6=Modified [place] 3=Moderate Assistance 7=Complete IndependenceSCALE: Activities may be completed with or without assistive devices. 1-Qfontgtpnk-aupewar completes the activity by him/herself with no assistance from a helper. 5-Set-up or Clean-up Assistance-helper sets up or cleans up; patient completes activity. [place] assists only prior to or following the activity. 4-Supervision or Touching Assistance-helper provides verbal cues and/or touching/steadying and/or contact guard assistance as patient completes activity. Assistance may be provided throughout the activity or intermittently. 3-Partial/Moderate Assistance-helper does LESS THAN HALF the effort. [place] lifts, holds or supports trunk or limbs, but provides less than half the effort. 2-Substantial/Maximal Assistance-helper does MORE THAN HALF the effort. [place] lifts or holds trunk or limbs and provides more than half the effort. 9-Lrgtvrcmc-swdaxs does ALL the effort. Patient does none of the effort to complete the activity. Or, the assistance of 2 or more helpers is required for the patient to complete the activity. If activity was not attempted, code reason: 7-Patient Refused. 9-Not Applicable-not attempted and the patient did not perform the activity before the current illness, exacerbation or injury. 10-Not Attempted due to Environmental Limitations-(lack of equipment, weather restraints, etc.). 88-Not Attempted due to Medical Conditions or Safety Concerns. Other Treatment Pt was seated in chair w/ legs raised, upon OT arrival. Pt stated she was ready for second tx session for the day. Pt lowered legs to floor so that she was seated up in chair. Pt participated in medium resistance thera-putty activity, retrieving 14 beads from putty and placing in small bowl, retrieving all 14 to support endurance training for ADL's. 1lb wrist weights BUEs. Pt was able to tell stories as she participated in tx session, which worked well, redirected 3x.Post tx session, pt was seated in chair, call light within reach, and all needs met. Education OT Patient Education: Energy conservation, Progress toward Goal/Update tx plan, Purpose of tx/functional activities, Reviewed precautions Teaching Recipient: Patient Teaching Methods: Demonstration Response to Teaching: Return Demonstration OT Short Term Goals Short Term Goals Time Frame: Jun 22, 2021 Toileting hygiene: 4 Shower/bathe self: 4 Lower body dressin Putting on/taking off footwear: 4 OT Half-Way Goals Sprayer Machine Goals Time Frame: Jul 01, 2021 Eating (QC): 6 Oral Hygiene (QC): 6 Toileting Hygiene (QC): 6 Shower/Bathe Self (QC): 6 Upper Body Dressing (QC): 6 Lower Body Dressing (QC): 6 On/Off Footwear (QC): 6 Additional Goals: 1-Demonstrate ADL Tasks, 2-Verbalize Understanding, 3- ImproveStrength/Etienne 1=Demonstrate adherence to instructed precautions during ADL tasks. 2=Patient will verbalize/demonstrate understanding of assistive devices/modifications for ADL. 3=Patient will improve strength/tolerance for activity to enable patient to perform ADL's. OT Education/Plan Problem List/Assessment Assessment: Decreased Activ Tolerance, Decreased Safety Aware, Decreased UE Strength, Impaired Coordination, Impaired Funct Balance, Impaired I ADL's, Impaired Self-Care Skills Discharge Recommendations Plan/Recommendations: Continue POC Treatment Plan/Plan of Care Patient would benefit from OT for education, treatment and training to promote independence in ADL's, mobility, safety and/or upper extremity function for ADL's. Plan of Care: ADL Retraining, Functional Mobility, Group Exercise/Act as Ind, UE Funct Exercise/Act Treatment Duration: Jul 01, 2021 Frequency: At least 5 of 7 days/Wk (IRF) Estimated Hrs Per Day: 1.5 hours per day Agreement: Yes Rehab Potential: Good Time/GCodes Start Time: 10:15 Stop Time: 10:30 Total Time Billed (hr/min): 15 Billed Treatment Time 1 Visit, PANCHO AREVALO OT Jun 14, 2021 11:45
--- NOTE | 2021-06-14 12:11 | Physical Therapy Daily Note ---
PT Daily Note-Current Subjective Pt reports intermittent dizziness with head movement, more prominent in the morning. Mental Status Patient Orientation: Person, Place, Time, Situation Transfers SCALE: Activities may be completed with or without assistive devices. 3-Kgafxogpzg-xbowbfo completes the activity by him/herself with no assistance from a helper. 5-Set-up or Clean-up Assistance-helper sets up or cleans up; patient completes activity. [place] assists only prior to or following the activity. 4-Supervision or Touching Assistance-helper provides verbal cues and/or touching/steadying and/or contact guard assistance as patient completes activity. Assistance may be provided throughout the activity or intermittently. 3-Partial/Moderate Assistance-helper does LESS THAN HALF the effort. [place] lifts, holds or supports trunk or limbs, but provides less than half the effort. 2-Substantial/Maximal Assistance-helper does MORE THAN HALF the effort. [place] lifts or holds trunk or limbs and provides more than half the effort. 6-Kmhfqsrhs-pkiams does ALL the effort. Patient does none of the effort to complete the activity. Or, the assistance of 2 or more helpers is required for the patient to complete the activity. If activity was not attempted, code reason: 7-Patient Refused. 9-Not Applicable-not attempted and the patient did not perform the activity before the current illness, exacerbation or injury. 10-Not Attempted due to Environmental Limitations-(lack of equipment, weather restraints, etc.). 88-Not Attempted due to Medical Conditions or Safety Concerns. Sit to Lying (QC): 5 Sit to Stand (QC): 5 Chair/Egn-lb-Vbyjm Xfer(QC): 5 Weight Bearing Right Lower Extremity: Right Weight Bearing/Tolerated Gait Training Does the Patient Walk?: Yes Distance: 15ft Gait Persons Needed: 1 Gait Assistive Device: FWW Neuromuscular Performed testing for BPPV. Normal [place] test in neutral and extended. Normal head impulse test. Asymptomatic throughout testing. Treatments Normal testing. No [place] required at this time. Pt advised to contact nursing if symptoms return. Assessment Current Status: Good Progress Asymptomatic with vertigo testing. Pt to remain under observation for BPPV. If symptoms return nursing or PT can contact me for further assessment. PT Short Term Goals Short Term Goals Time Frame: Jun 25, 2021 Roll Left & Right: 4 Sit to lyin Lying to sitting on side of be: 4 Sit to stand: 4 Chair/fxh-db-bpldm transfer: 4 Toilet transfer: 4 Car transfer: 4 Walk 10 feet: 4 Walk 50 feet with two turns: 4 Walk 150 feet: 4 Walking 10ft on uneven surface: 4 1 step (curb): 3 4 steps: 3 12 steps: 3 Picking up objects: 4 Does pt use a wc or scooter: No PT Alf Goals Insight Director Goals PT Insight Director Goals Time Frame: Jul 23, 2021 Roll Left & Right (QC): 5 Sit to Lying (QC): 5 Lying-Sitting on Side/Bed(QC): 5 Sit to Stand (QC): 5 Chair/Ywc-jk-Fkefm Xfer(QC): 5 Toilet Transfer (QC): 5 Car Transfer (QC): 5 Does the Patient Walk: Yes Walk 10 feet (QC): 5 Walk 50ft with 2 Turns (QC): 5 Walk 150 ft (QC): 5 Walking 10ft on Uneven Surface: 5 1 Step (curb) (QC): 4 4 Steps (QC): 4 12 Steps (QC): 4 Picking up an Object (QC): 5 Does the Pt use WC or Scooter?: No Wheel 50 feet with 2 turns (QC: 88 Wheel 150 feet: 88 PT Plan Treatment/Plan Treatment Plan: Continue Plan of Care Treatment Plan: Bed Mobility, Concurrent Therapy, Education, Functional Activity Etienne, Functional Strength, Group Therapy, Gait, Safety, Therapeutic Exercise, Transfers Treatment Duration: Aug 24, 2021 Frequency: At least 5 of 7 days/Wk (IRF) Estimated Hrs Per Day: 1.5 hours per day Patient and/or Family Agrees t: Yes Time/GCodes Time In: 1150 Time Out: 1205 Total Billed Treatment Time: 15 Total Billed Treatment 1, nm 15 JESUS ARZOLA PT Jun 14, 2021 12:11
--- NOTE | 2021-06-14 12:38 | ST Cognitive Linguistic Eval ---
Speech Evaluation-General Medical Diagnosis s/p R NAJMA Onset Date: Jun 08, 2021 Social History Current Living Status: Children (son) Speech PLF-Current Status Language Eval: Auditory Comprehends Simple Yes/No Ques: Functional Indent/Objects Multiple Mccon[place]: Functional Ident/Pics in Multiple M[place]on[place]: Functional Follows 1-Step Commands: Functional Follows Complex Directions: Functional Follows General Conversations: Functional Language Eval: Verbal Language Completes Spontaneous Greeting: Functional Produces Auto, Serial Info: Functional Imitates Simple Words/Phrases: Functional Word Finding: Functional Requests Basic Needs: Functional States Basic Personal Info: Functional Expresses Complex Ideas: Functional Language Evaluation: Reading Comprehends Single Nouns: Functional Follows Simple Written Direct: Functional Comprehends Multiple Sentences: Functional Objective Formal/Standardized Tests [facility] Mental Status ([facility]) exam was completed. Results The pt scored 19/30 on SLUMS exam indicating moderate cognitive deficits. Pt is very talkative and appears with functional language. She states she was driving, cooking and taking care of bills. She has a son that lives with her with Asperger's. Pt indicates difficulty with memory and feels she would benefit from speech therapy. Impression The pt presents with moderate cognitive deficits according to SLUMS results. Pt would benefit from speech therapy focusing on memory, compensatory strategies, functional math and problems solving. Speech Patient Assess Expression of Ideas/Wants: Expression (4) Understanding Verbal Content: Understands (4) (Clear comprehension without) Brief Interview-Mental Status: Yes (Three Words) Repetition of Three Words: Three (3) Temporal Orientation: Year: Correct (3) Temporal Orientation: Month: Accurate within 5 days(2) Temporal Orientation: Day: Correct (1) Recall : Wear to say "Sock": Yes, no cue required (2) Recall : Color: Yes, no cue required (2) Recall : Bed: Yes, no cue required (2) Memory/Recall Ability: Current season, That he or she is in a hsp/hsp unit Speech Short Term Goals Short Term Goals Short Term Goals 1.The pt will complete daily memory tasks at 80% accy with min cues. 2. The pt will complete daily safety awareness tasks with 80% accy. 3. The pt will complete daily problem solving task with 80% accy. Speech Chcf Goals Account Receivable Clerk Goals The pt will improve cognitive-communication abilities for functional daily living. Speech-Plan Treatment Plan Speech Therapy Treatment Plan: Continue Plan of Care Treatment Duration: Jun 11, 2021 Frequency: 3 times per week Estimated Hrs Per Day: .5 hour per day Rehab Potential: Good Time Speech Therapy Time In: 10:30 Speech Therapy Time Out: 11:10 Billed Treatment Time 1, COGN TEST 40 MINS ROBERTO YOUNG Jun 14, 2021 12:38
[2021-06-14] MEDS ORDERED: CATHETER FLUSH 10 ML SYR IV PRN (19:15)
[2021-06-14 20:28] VITALS: BP 114/54
[2021-06-14] MEDS: [UNRECOGNIZED DRUG - REMARK] TP SCH (20:57)
[2021-06-14] MEDS: CATHETER FLUSH 10 ML SYR IV SCH (21:00)
[2021-06-15] MEDS: BETHANECHOL 25 MG (URECHOLINE) TAB PO SCH ×4 (06:42→20:51)
[2021-06-15] MEDS: CYANOCOBALAMIN 1,000 MCG (VITAMIN B-12) TABLET PO SCH (06:42)
[2021-06-15 07:44] VITALS: BP 130/60
[2021-06-15] MEDS: VANCOMYCIN 125 MG CAPSULE PO SCH ×2 (08:39→20:51)
[2021-06-15] MEDS: LACTOBACILLUS ACIDOPHILUS (PROBIOTIC) CAPSULE PO SCH ×2 (08:39→20:50)
[2021-06-15] MEDS: AMOXICILLIN 500 MG (POLYMOX) CAP PO SCH ×3 (08:39→20:50)
[2021-06-15] MEDS: ASPIRIN E.C. 81 MG (ECOTRIN) TAB PO SCH ×2 (08:39→20:50)
[2021-06-15] MEDS: TAMSULOSIN 0.4 MG (FLOMAX) CAP PO SCH (08:40)
[2021-06-15] MEDS: polyethylene glycoL POWDER 17 GM (MIRALAX) PACK PO SCH ×2 (08:41→20:45)
[2021-06-15] MEDS: LIDOCAINE 4% (SALONPAS) PATCH TP SCH (08:41)
[2021-06-15] MEDS: SENNA W/DOCUSATE (SENOKOT S) TABLET PO SCH ×2 (08:41→20:45)
[2021-06-15] MEDS: DOCUSATE SODIUM 100 MG (COLACE) CAP PO SCH ×2 (08:41→20:45)
[2021-06-15] MEDS: SODIUM CHLORIDE 1 GM TABLET PO SCH ×3 (08:45→20:50)
--- NOTE | 2021-06-15 08:47 | Diagnostic Imaging Report ---
PROCEDURE: US right lower extremity venous. TECHNIQUE: Multiple real-time grayscale images were obtained over the right lower extremity in various projections. Additional spectral analysis and color Doppler duplex images were also obtained. INDICATION: Right leg pain and swelling. FINDINGS: There is normal augmentation, compression and color Doppler flow of the veins of the right leg with no thrombosis or other abnormality seen. IMPRESSION: No abnormality is seen. Dictated by: Dictated on workstation # [id number]
--- NOTE | 2021-06-15 09:04 | PM&R Progress Note ---
Subjective HPI/CC On Admission Date Seen by Provider: Jun 15, 2021 Time Seen by Provider: 09:10 Subjective/Events-last exam 06/15/2021: Patient doing a lot better Right groin pain with leg pain prompted ultrasound no DVT Performed Magui maneuver by therapy yesterday and everything within normal limits Getting second dose of iron infusion Amoxicillin plus Vanco p.o. maintained Increase fluid restriction to 1500 cc 06/14/21: Patient feels good Kpad to neck will be provided for muscle spasm No other pain reported Loose BM Terry out and voiding well Confused last night 06/13/21: Patient doing well Urology consulted Terry in place Urecholine maintained WBC normal IV iron infusion will be started after PICC placed tomorrow 06/12/21: Patient doing well Pain is controlled Urology will be consulted tomorrow Monitor closely Check meds and labs 06/11/2021: Patient doing well Settling in Refusing additional labs Pain is fairly well controlled Her 2 sons visited her today Check meds and labs Review of Systems General: Fatigue, Malaise Objective Exam Vital Signs Vital Signs Date Time Temp Pulse Resp B/P (MAP) Pulse Ox O2 Delivery O2 Flow Rate FiO2 06/16/21 01:26 36.3 06/15/21 20:30 90 20 139/62 (87) 93 Room Air Capillary Refill : General Appearance: No Apparent Distress, WD/WN, Anxious, Chronically ill HEENT: PERRL/EOMI, Normal ENT Inspection, Pharynx Normal Neck: Full Range of Motion, Normal Inspection, Non Tender, Supple, Carotid Bruit Respiratory: Chest Non Tender, Lungs Clear, Normal Breath Sounds, No Accessory Muscle Use, No Respiratory Distress Cardiovascular: Regular Rate, Rhythm, No Edema, No Gallop, No JVD, No Murmur, Normal Peripheral Pulses Gastrointestinal: Normal Bowel Sounds, No Organomegaly, No Pulsatile Mass, Non Tender, Soft Back: Normal Inspection, No CVA Tenderness, No Vertebral Tenderness Extremity: Normal Capillary Refill, Normal Inspection, Normal Range of Motion (Except right leg), Non Tender, No Calf Tenderness, No Pedal Edema Neurologic/Psychiatric: Alert, Oriented x3, No Motor/Sensory Deficits, Normal Mood/Affect, legal services manager II-XII Norm as Tested, Abnormal Gait, Motor Weakness (Right leg) Skin: Normal Color, Warm/Dry Lymphatic: No Adenopathy Results/Procedures Lab Patient resulted labs reviewed. FIM Transfers Therapy Code Descriptions/Definitions Functional [place] Measure: 0=Not Assessed/NA 4=Minimal Assistance 1=Total Assistance 5=Supervision or Setup 2=Maximal Assistance 6=Modified [place] 3=Moderate Assistance 7=Complete IndependenceSCALE: Activities may be completed with or without assistive devices. 4-Gpxxfrtyxm-dujdnqw completes the activity by him/herself with no assistance from a helper. 5-Set-up or Clean-up Assistance-helper sets up or cleans up; patient completes activity. [place] assists only prior to or following the activity. 4-Supervision or Touching Assistance-helper provides verbal cues and/or touching/steadying and/or contact guard assistance as patient completes activity. Assistance may be provided throughout the activity or intermittently. 3-Partial/Moderate Assistance-helper does LESS THAN HALF the effort. [place] lifts, holds or supports trunk or limbs, but provides less than half the effort. 2-Substantial/Maximal Assistance-helper does MORE THAN HALF the effort. [place] lifts or holds trunk or limbs and provides more than half the effort. 1-Luivjaowt-cdsbjp does ALL the effort. Patient does none of the effort to complete the activity. Or, the assistance of 2 or more helpers is required for the patient to complete the activity. If activity was not attempted, code reason: 7-Patient Refused. 9-Not Applicable-not attempted and the patient did not perform the activity before the current illness, exacerbation or injury. 10-Not Attempted due to Environmental Limitations-(lack of equipment, weather restraints, etc.). 88-Not Attempted due to Medical Conditions or Safety Concerns. Roll Left to Right (QC): 3 Sit to Lying (QC): 5 Sit to Stand (QC): 5 Chair/Jtb-iz-Icpil Xfer(QC): 5 Car Transfer (QC): 3 Gait Training Does the Patient Walk?: Yes Distance: 15ft Walk 10 feet (QC): 5 Walk 50 ft with 2 Turns(QC): 5 Walk 150 ft (QC): 5 Walking 10ft/uneven surface-QC: 3 Gait Persons Needed: 1 Gait Assistive Device: FWW Wheelchair Training Does the Pt Use a Wheelchair?: No Wheel 50 ft with 2 turns (QC): 88 Wheel 150 ft (QC): 88 Stair Training #of Steps: 0 1 Step (curb) (QC): 88 4 Steps (QC): 88 12 Steps (QC): 88 Balance Picking up an Object (QC): 88 ADL-Treatment Eating (QC): 6 (IND with breakfast.) Shower/Bathe Self (QC): 4 (Pt required CGA for cleaning backside and armand area. Pt also utilized a long handled sponge during task to wash and dry R LE to abide by hip precautions. ) Upper Body Dressing (QC): 5 (Pt required set up. ) Lower Body Dressing (QC): 4 (Pt required CGA for donning/doffing pants. Pt also utilized a automobile body repair supervisor to abide by hip precautions. ) On/Off Footwear (QC): 5 (Pt required set up, utilizing a automobile body repair supervisor to doff slip on shoes and a shoe horn to haylie slip on shoes.) Toileting Hygiene (QC): 3 (Pt able to manage hygiene, some assistance with pant hike.) Assessment/Plan Assessment and Plan Assess & Plan/Chief Complaint Assessment: Right hip fracture sustained after repair of original right hip fracture Multiple falls Acute urinary retention Terry catheter in place UTI Hyponatremia Advanced age Poor reserve Anemia post op acute blood loss type Postop constipation Plan: Inpatient rehab protocol Bowel regimen Complete antibiotics Urinary retention management 06/11/2021: Continue bladder regimen Maintain Terry catheter due to retention Monitor labs 06/12/21: Urology consult tomorrow Monitor closely PICC Venofer 06/13/21: Monitor closely Urology PICC for IV iron infusions 06/14/21: Voiding well with catheter out Monitor closely 06/15/2021: Supportive care No DVT (1) Hip fracture, right (2) UTI (urinary tract infection) (3) Urinary retention (4) Terry catheter in place (5) Falls (6) Hyponatremia (7) Constipation FAUSTO DAVILA DO Jun 15, 2021 09:04
[2021-06-15] MEDS: IRON SUCROSE 200 MG/10 ML (VENOFER) VIAL IV SCH (09:09)
[2021-06-15] MEDS: CATHETER FLUSH 10 ML SYR IV SCH ×2 (09:09→20:51)
--- NOTE | 2021-06-15 09:12 | Physical Therapy Daily Note ---
PT Daily Note-Current Subjective Pt laying Supine in bed upon arrival. Pt states she heard/felt a pop in R groin last night and doesn't want to get out of bed. Nursing advised pt had [place] [facility] and pt had reported it felt better. Pain Numeric Pain Scale: 10-Worst Possible Pain Location: Right Location Body Site: Pelvic Pain Description: Ache Mental Status Patient Orientation: Person, Confused, Place Transfers SCALE: Activities may be completed with or without assistive devices. 5-Abanymkcep-bkhgmhw completes the activity by him/herself with no assistance from a helper. 5-Set-up or Clean-up Assistance-helper sets up or cleans up; patient completes activity. [place] assists only prior to or following the activity. 4-Supervision or Touching Assistance-helper provides verbal cues and/or touching/steadying and/or contact guard assistance as patient completes activity. Assistance may be provided throughout the activity or intermittently. 3-Partial/Moderate Assistance-helper does LESS THAN HALF the effort. [place] lifts, holds or supports trunk or limbs, but provides less than half the effort. 2-Substantial/Maximal Assistance-helper does MORE THAN HALF the effort. [place] lifts or holds trunk or limbs and provides more than half the effort. 6-Rnzesowpj-xkcvmn does ALL the effort. Patient does none of the effort to complete the activity. Or, the assistance of 2 or more helpers is required for the patient to complete the activity. If activity was not attempted, code reason: 7-Patient Refused. 9-Not Applicable-not attempted and the patient did not perform the activity before the current illness, exacerbation or injury. 10-Not Attempted due to Environmental Limitations-(lack of equipment, weather restraints, etc.). 88-Not Attempted due to Medical Conditions or Safety Concerns. Lying to Sitting/Side of Bed(Q: 5 Sit to Stand (QC): 5 Weight Bearing Right Lower Extremity: Right Weight Bearing/Tolerated Exercises Supine Ex: Bridging, Ankle pumps, Quad Set, Heel Slides, Scooting Supine Reps: 15 Treatments Co-treat with PT from 830-900 due to increase in pain, transfers, UE/LE exercises, education on maintaining hip precautions and mobility. PT focusing on transfers, LE exercises, and mobility while OT focuses on proper hand placement during transfers, UE exercises, and AE when donning LB to maintain hip precautions. Pt required Max verbal cues to transfer EOB. Pt given morning medicine which she reluctantly took after some convincing. Pt needed Max cuing for participation outside of the bed exercises already completed with staff. Pt dons brief and shoes with AE and stands at SBA. Pt makes no mention of pain upon standing. Pt transfers from EOB to recliner. PT departs & OT continues tx. All needs met. Assessment Current Status: Poor Progress Pt needs Max cuing for participating in Therapy and benefits of continued movement. PT Short Term Goals Short Term Goals Time Frame: Jun 25, 2021 Roll Left & Right: 4 Sit to lyin Lying to sitting on side of be: 4 Sit to stand: 4 Chair/fru-sh-bwblv transfer: 4 Toilet transfer: 4 Car transfer: 4 Walk 10 feet: 4 Walk 50 feet with two turns: 4 Walk 150 feet: 4 Walking 10ft on uneven surface: 4 1 step (curb): 3 4 steps: 3 12 steps: 3 Picking up objects: 4 Does pt use a wc or scooter: No PT [employer] District Law Clerk Goals [employer] Law Clerk Goals PT [employer] Law Clerk Goals Time Frame: Jul 23, 2021 Roll Left & Right (QC): 5 Sit to Lying (QC): 5 Lying-Sitting on Side/Bed(QC): 5 Sit to Stand (QC): 5 Chair/Gsu-tl-Vwqee Xfer(QC): 5 Toilet Transfer (QC): 5 Car Transfer (QC): 5 Does the Patient Walk: Yes Walk 10 feet (QC): 5 Walk 50ft with 2 Turns (QC): 5 Walk 150 ft (QC): 5 Walking 10ft on Uneven Surface: 5 1 Step (curb) (QC): 4 4 Steps (QC): 4 12 Steps (QC): 4 Picking up an Object (QC): 5 Does the Pt use WC or Scooter?: No Wheel 50 feet with 2 turns (QC: 88 Wheel 150 feet: 88 PT Plan Problem List Problem List: Activity Tolerance, Functional Strength, Safety, Gait Treatment/Plan Treatment Plan: Continue Plan of Care Treatment Plan: Bed Mobility, Concurrent Therapy, Education, Functional Activity [place], Functional Strength, Group Therapy, Gait, Safety, Therapeutic Exercise, Transfers Treatment Duration: Aug 24, 2021 Frequency: At least 5 of 7 days/Wk (IRF) Estimated Hrs Per Day: 1.5 hours per day Patient and/or Family Agrees t: Yes Safety Risks/Education Patient Education: Transfer Techniques, Reviewed Precautions, Correct Positioning, Safety Issues Teaching Recipient: Patient Teaching Methods: Discussion Response to Teaching: Reinforcement Needed Time/GCodes Time In: 800 Time Out: 900 Total Billed Treatment Time: 60 Total Billed Treatment 1, FA x2 (35m) & EX x2 (25m) Co-treat w/OT from 830-900 ALLAN CARDOZO GLASSWARE FINISHER Jun 15, 2021 09:12
--- NOTE | 2021-06-15 09:29 | Occupational Ther Daily Note ---
OT Current Status-Daily Note Subjective Pt alert, laying in bed when OT entered. Pt stated, she felt a pop in R hip and did not want to get out of bed for therapy. Nrsing notified. Pt agreed to therapy. Mental Status/Objective Patient Orientation: Person, Place, Time, Situation ADL-Treatment Co-treat with PT from 830-900 due to increase in pain, transfers, UE/LE exercises, education on maintaining hip precautions and mobility. PT focusing on transfers, LE exercises, and mobility while OT focuses on proper hand placement during transfers, UE exercises, and AE when donning LB to maintain hip precautions. Pt required Max verbal cues to transfer EOB and participate in out of bed exercises. Pt transferred from supine to EOB with supervision. After set up, pt donned slip on shoes and briefs using AE to maintain hip precautions. Pt sit-stand from EOB to FWW with SBA. No pain reported. Pt ambulated and transferred to recliner with SBA. Therapy Code Descriptions/Definitions Functional [place] Measure: 0=Not Assessed/NA 4=Minimal Assistance 1=Total Assistance 5=Supervision or Setup 2=Maximal Assistance 6=Modified [place] 3=Moderate Assistance 7=Complete IndependenceSCALE: Activities may be completed with or without assistive devices. 2-Jxdtxupjdl-hpmzlww completes the activity by him/herself with no assistance from a helper. 5-Set-up or Clean-up Assistance-helper sets up or cleans up; patient completes activity. [place] assists only prior to or following the activity. 4-Supervision or Touching Assistance-helper provides verbal cues and/or touching/steadying and/or contact guard assistance as patient completes activity. Assistance may be provided throughout the activity or intermittently. 3-Partial/Moderate Assistance-helper does LESS THAN HALF the effort. [place] lifts, holds or supports trunk or limbs, but provides less than half the effort. 2-Substantial/Maximal Assistance-helper does MORE THAN HALF the effort. [place] lifts or holds trunk or limbs and provides more than half the effort. 6-Lxazdbwmx-nrgggf does ALL the effort. Patient does none of the effort to comp lete the activity. Or, the assistance of 2 or more helpers is required for the patient to complete the activity. If activity was not attempted, code reason: 7-Patient Refused. 9-Not Applicable-not attempted and the patient did not perform the activity before the current illness, exacerbation or injury. 10-Not Attempted due to Environmental Limitations-(lack of equipment, weather restraints, etc.). 88-Not Attempted due to Medical Conditions or Safety Concerns. Other Treatment Skilled instruction required of BUE red theraband exercises. Pt completed x2 sets of 15 reps of BUE red therband exercises while seated in bed and recliner. Pt required increase time to complete exercises and max verbal cues to stay on task throughout treatment due to pt talking. Pt required several attempts of demonstration of exercises before returning correct demonstration. After se ssion, pt sitting in recliner. All needs met and call light in reach. Education OT Patient Education: Exercise program, Home exercise program, Modified ADL techniques, Reviewed precautions, Safety issues, Transfer techniques, Use of adapted equipment Teaching Recipient: Patient Teaching Methods: Demonstration Response to Teaching: Verbalize Understanding, Return Demonstration OT Short Term Goals Short Term Goals Time Frame: Jun 22, 2021 Toileting hygiene: 4 Shower/bathe self: 4 Lower body dressin Putting on/taking off footwear: 4 OT Emerging Technologies Director Goals Jail Goals Time Frame: Jul 01, 2021 Eating (QC): 6 Oral Hygiene (QC): 6 Toileting Hygiene (QC): 6 Shower/Bathe Self (QC): 6 Upper Body Dressing (QC): 6 Lower Body Dressing (QC): 6 On/Off Footwear (QC): 6 Additional Goals: 1-Demonstrate ADL Tasks, 2-Verbalize Understanding, 3- ImproveStrength/Etienne 1=Demonstrate adherence to instructed precautions during ADL tasks. 2=Patient will verbalize/demonstrate understanding of assistive devices/modifications for ADL. 3=Patient will improve strength/tolerance for activity to enable patient to perform ADL's. OT Education/Plan Problem List/Assessment Assessment: Decreased Activ Tolerance, Decreased Safety Aware, Decreased UE Strength, Impaired Self-Care Skills Discharge Recommendations Plan/Recommendations: Continue POC Treatment Plan/Plan of Care Patient would benefit from OT for education, treatment and training to promote independence in ADL's, mobility, safety and/or upper extremity function for ADL's. Plan of Care: ADL Retraining, Functional Mobility, Group Exercise/Act as Ind, UE Funct Exercise/Act Treatment Duration: Jul 01, 2021 Frequency: At least 5 of 7 days/Wk (IRF) Estimated Hrs Per Day: 1.5 hours per day Agreement: Yes Rehab Potential: Good Time/GCodes Start Time: 08:30 Stop Time: 09:30 Total Time Billed (hr/min): 60 Billed Treatment Time 1 visit ADL 1 (21 mins) EX 3 (40 mins) 60 mins Co treat with PT [phone] Individual [phone] CANDELARIA PINTO Jun 15, 2021 09:29
--- NOTE | 2021-06-15 09:42 | Progress Note - Urology ---
Progress Note-Urology Progress Notes/Assess & Plan Progress/Assessment & Plan PLAN DC FLOMAX AND IF CONTINUES WELL, TOMORROW START WEANING OFF URECHOLINE Final Diagnosis RETENTION JOSE BOYD MD Jun 15, 2021 09:42
--- NOTE | 2021-06-15 10:48 | Speech Therapy Daily Note ---
Speech Daily Progress Note Subjective Date Seen by Provider: Jun 15, 2021 Time Seen by Provider: 00:30 Patient was pleasant and very talkative. Objective Patient completed cognitive tasks with 70% accuracy given moderate verbal and/or visual cues. Patient does require frequent redirection to task. Assessment Assessment Current Status: Fair Progress Treatment Plan Continue Plan of Care Speech Short Term Goals Short Term Goals Short Term Goals 1.The pt will complete daily memory tasks at 80% accy with min cues. 2. The pt will complete daily safety awareness tasks with 80% accy. 3. The pt will complete daily problem solving task with 80% accy. Speech Official Greeter Goals Residential Goals The pt will improve cognitive-communication abilities for functional daily living. Speech-Plan Patient/Family Goals Patient/Family Goals: Patient plans on returning to her home where she lives with her son. Treatment Plan Speech Therapy Treatment Plan: Continue Plan of Care Treatment Duration: Jun 24, 2021 Frequency: 5 times per week Estimated Hrs Per Day: .5 hour per day Rehab Potential: Good Barriers to Learning: Patient's decreased cognitive function. Pt/Family Agrees to Plan: Yes Safety Risks/Education Teaching Recipient: Patient Teaching Methods: Demonstration, Discussion Response to Teaching: Verbalize Understanding, Return Demonstration Education Topics Provided: Safety within her room, communication of wants/needs Time Speech Therapy Time In: 10:30 Speech Therapy Time Out: 11:00 Total Billed Time: 30 Billed Treatment Time [address] Jun 15, 2021 10:48
--- NOTE | 2021-06-15 13:18 | Physical Therapy Daily Note ---
PT Daily Note-Current Subjective Pt asleep in bed upon arrival. Pt again reluctantly agrees to PT. Pain Numeric Pain Scale: 5-Moderate Pain Location: Right Location Body Site: Hip Pain Description: Ache Mental Status Patient Orientation: Person, Confused Transfers SCALE: Activities may be completed with or without assistive devices. 5-Urmeyupdzo-yywzcfh completes the activity by him/herself with no assistance fr om a helper. 5-Set-up or Clean-up Assistance-helper sets up or cleans up; patient completes activity. [place] assists only prior to or following the activity. 4-Supervision or Touching Assistance-helper provides verbal cues and/or touching/steadying and/or contact guard assistance as patient completes activity. Assistance may be provided throughout the activity or intermittently. 3-Partial/Moderate Assistance-helper does LESS THAN HALF the effort. [place] lifts, holds or supports trunk or limbs, but provides less than half the effort. 2-Substantial/Maximal Assistance-helper does MORE THAN HALF the effort. [place] lifts or holds trunk or limbs and provides more than half the effort. 1-Ttddvxfxg-bekpgx does ALL the effort. Patient does none of the effort to complete the activity. Or, the assistance of 2 or more helpers is required for the patient to complete the activity. If activity was not attempted, code reason: 7-Patient Refused. 9-Not Applicable-not attempted and the patient did not perform the activity before the current illness, exacerbation or injury. 10-Not Attempted due to Environmental Limitations-(lack of equipment, weather restraints, etc.). 88-Not Attempted due to Medical Conditions or Safety Concerns. Weight Bearing Right Lower Extremity: Right Weight Bearing/Tolerated Exercises Supine Ex: Ankle pumps, Quad Set, Glut sets, Short Arc Quads Supine Reps: 15 Treatments Pt completes Supine EX and reviews Hip Precautions again w/HARNESSMAKER. Assessment Current Status: Fair Progress Pt needs encouragement to participate in Therapy. PT Short Term Goals Short Term Goals Time Frame: Jun 25, 2021 Roll Left & Right: 4 Sit to lyin Lying to sitting on side of be: 4 Sit to stand: 4 Chair/gdp-gn-oncqp transfer: 4 Toilet transfer: 4 Car transfer: 4 Walk 10 feet: 4 Walk 50 feet with two turns: 4 Walk 150 feet: 4 Walking 10ft on uneven surface: 4 1 step (curb): 3 4 steps: 3 12 steps: 3 Picking up objects: 4 Does pt use a wc or scooter: No PT Mineral Resources Inspector Goals Prison Goals PT Prison Goals Time Frame: Jul 23, 2021 Roll Left & Right (QC): 5 Sit to Lying (QC): 5 Lying-Sitting on Side/Bed(QC): 5 Sit to Stand (QC): 5 Chair/Vwy-zq-Bdoyl Xfer(QC): 5 Toilet Transfer (QC): 5 Car Transfer (QC): 5 Does the Patient Walk: Yes Walk 10 feet (QC): 5 Walk 50ft with 2 Turns (QC): 5 Walk 150 ft (QC): 5 Walking 10ft on Uneven Surface: 5 1 Step (curb) (QC): 4 4 Steps (QC): 4 12 Steps (QC): 4 Picking up an Object (QC): 5 Does the Pt use WC or Scooter?: No Wheel 50 feet with 2 turns (QC: 88 Wheel 150 feet: 88 PT Plan Problem List Problem List: Activity Tolerance, Functional Strength, Safety Treatment/Plan Treatment Plan: Continue Plan of Care Treatment Plan: Bed Mobility, Concurrent Therapy, Education, Functional Activity [place], Functional Strength, Group Therapy, Gait, Safety, Therapeutic Exercise, Transfers Treatment Duration: Aug 24, 2021 Frequency: At least 5 of 7 days/Wk (IRF) Estimated Hrs Per Day: 1.5 hours per day Patient and/or Family Agrees t: Yes Safety Risks/Education Patient Education: Reviewed Precautions, Correct Positioning Teaching Recipient: Patient Teaching Methods: Discussion Response to Teaching: Reinforcement Needed Time/GCodes Time In: 1300 Time Out: 1315 Total Billed Treatment Time: 15 Total Billed Treatment 1, WILSON (15m) ALLAN CARDOZO PTA Jun 15, 2021 13:18
--- NOTE | 2021-06-15 14:12 | Occupational Ther Daily Note ---
OT Current Status-Daily Note Subjective Pt alert, laying in bed when OT entered. Pt agreed to therapy. Pt requested to complete therapy in bed due to pain in R hip. Mental Status/Objective Patient Orientation: Person, Place, Time, Situation ADL-Treatment Therapy Code Descriptions/Definitions Functional [place] Measure: 0=Not Assessed/NA 4=Minimal Assistance 1=Total Assistance 5=Supervision or Setup 2=Maximal Assistance 6=Modified [place] 3=Moderate Assistance 7=Complete IndependenceSCALE: Activities may be completed with or without assistive devices. 5-Oudmvsxmls-hbtqfzg completes the activity by him/herself with no assistance from a helper. 5-Set-up or Clean-up Assistance-helper sets up or cleans up; patient completes activity. [place] assists only prior to or following the activity. 4-Supervision or Touching Assistance-helper provides verbal cues and/or touching/steadying and/or contact guard assistance as patient completes activity. Assistance may be provided throughout the activity or intermittently. 3-Partial/Moderate Assistance-helper does LESS THAN HALF the effort. [place] lifts, holds or supports trunk or limbs, but provides less than half the effort. 2-Substantial/Maximal Assistance-helper does MORE THAN HALF the effort. [place] lifts or holds trunk or limbs and provides more than half the effort. 2-Rmavqotvi-efcoem does ALL the effort. Patient does none of the effort to complete the activity. Or, the assistance of 2 or more helpers is required for the patient to complete the activity. If activity was not attempted, code reason: 7-Patient Refused. 9-Not Applicable-not attempted and the patient did not perform the activity before the current illness, exacerbation or injury. 10-Not Attempted due to Environmental Limitations-(lack of equipment, weather restraints, etc.). 88-Not Attempted due to Medical Conditions or Safety Concerns. Other Treatment Pt participated in FM task while laying in bed of grasping clothespin from least-most restive and reaching them to place onto rack to increase BUE ROM and hand strength for improved indpendence with daily task. Pt required verbal cues throughout session to say on task due to talking. Pt completed task with BUE and tolerated it well. Pt required assist with 2 hands when placing most restive clothespin on rack. After session, pt laying in bed. Call light in reach and all needs met. Education OT Patient Education: Correct positioning, Purpose of tx/functional activities Teaching Recipient: Patient Teaching Methods: Demonstration, Discussion Response to Teaching: Verbalize Understanding, Return Demonstration OT Short Term Goals Short Term Goals Time Frame: Jun 22, 2021 Toileting hygiene: 4 Shower/bathe self: 4 Lower body dressin Putting on/taking off footwear: 4 OT Sample Stitcher Goals Usp Goals Time Frame: Jul 01, 2021 Eating (QC): 6 Oral Hygiene (QC): 6 Toileting Hygiene (QC): 6 Shower/Bathe Self (QC): 6 Upper Body Dressing (QC): 6 Lower Body Dressing (QC): 6 On/Off Footwear (QC): 6 Additional Goals: 1-Demonstrate ADL Tasks, 2-Verbalize Understanding, 3- ImproveStrength/Etienne 1=Demonstrate adherence to instructed precautions during ADL tasks. 2=Patient will verbalize/demonstrate understanding of assistive devices/modifications for ADL. 3=Patient will improve strength/tolerance for activity to enable patient to perform ADL's. OT Education/Plan Problem List/Assessment Assessment: Decreased Activ Tolerance, Decreased Safety Aware, Decreased UE Strength, Impaired Self-Care Skills Discharge Recommendations Plan/Recommendations: Continue POC Treatment Plan/Plan of Care Patient would benefit from OT for education, treatment and training to promote independence in ADL's, mobility, safety and/or upper extremity function for ADL's. Plan of Care: ADL Retraining, Functional Mobility, Group Exercise/Act as Ind, UE Funct Exercise/Act Treatment Duration: Jul 01, 2021 Frequency: At least 5 of 7 days/Wk (IRF) Estimated Hrs Per Day: 1.5 hours per day Agreement: Yes Rehab Potential: Good Time/GCodes Start Time: 13:35 Stop Time: 13:50 Total Time Billed (hr/min): 15 Billed Treatment Time 1 visit - FA 1 (15 mins) CANDELARIA PINTO Jun 15, 2021 14:12
[2021-06-15 20:30] VITALS: BP 139/62
[2021-06-15] MEDS: [UNRECOGNIZED DRUG - REMARK] TP SCH (20:45)
[2021-06-16] MEDS: BETHANECHOL 25 MG (URECHOLINE) TAB PO SCH ×3 (06:25→17:29)
[2021-06-16] MEDS: CYANOCOBALAMIN 1,000 MCG (VITAMIN B-12) TABLET PO SCH (06:26)
[2021-06-16 08:00] VITALS: BP 128/62
[2021-06-16] MEDS: ASPIRIN E.C. 81 MG (ECOTRIN) TAB PO SCH ×2 (08:20→20:31)
[2021-06-16] MEDS: LACTOBACILLUS ACIDOPHILUS (PROBIOTIC) CAPSULE PO SCH ×2 (08:20→20:31)
[2021-06-16] MEDS: LIDOCAINE 4% (SALONPAS) PATCH TP SCH (08:20)
[2021-06-16] MEDS: AMOXICILLIN 500 MG (POLYMOX) CAP PO SCH ×3 (08:20→20:31)
[2021-06-16] MEDS: VANCOMYCIN 125 MG CAPSULE PO SCH ×2 (08:20→20:31)
[2021-06-16] MEDS: SODIUM CHLORIDE 1 GM TABLET PO SCH ×3 (08:23→20:31)
[2021-06-16] MEDS: CATHETER FLUSH 10 ML SYR IV SCH ×2 (08:23→20:32)
[2021-06-16] MEDS: SENNA W/DOCUSATE (SENOKOT S) TABLET PO SCH ×2 (08:26→20:30)
[2021-06-16] MEDS: DOCUSATE SODIUM 100 MG (COLACE) CAP PO SCH ×2 (08:26→20:30)
[2021-06-16] MEDS: polyethylene glycoL POWDER 17 GM (MIRALAX) PACK PO SCH ×2 (08:26→20:30)
--- NOTE | 2021-06-16 09:38 | Progress Note - Urology ---
Progress Note-Urology Progress Notes/Assess & Plan Progress/Assessment & Plan DOING WELL OFF FLOMAX. START WEANING OFF URECHOLINE Final Diagnosis RETENTION JOSE BOYD MD Jun 16, 2021 09:38
--- NOTE | 2021-06-16 10:15 | PM&R Progress Note ---
Subjective HPI/CC On Admission Date Seen by Provider: Jun 16, 2021 Time Seen by Provider: 11:00 Subjective/Events-last exam 06/16/2021: Patient doing better Decreasing Urecholine per urology Flomax was discontinued Post void residual are minimal Voltaren gel will be used 06/15/2021: Patient doing a lot better Right groin pain with leg pain prompted ultrasound no DVT Performed Magui maneuver by therapy yesterday and everything within normal limits Getting second dose of iron infusion Amoxicillin plus Vanco p.o. maintained Increase fluid restriction to 1500 cc 06/14/21: Patient feels good Kpad to neck will be provided for muscle spasm No other pain reported Loose BM Terry out and voiding well Confused last night 06/13/21: Patient doing well Urology consulted Terry in place Urecholine maintained WBC normal IV iron infusion will be started after PICC placed tomorrow 06/12/21: Patient doing well Pain is controlled Urology will be consulted tomorrow Monitor closely Check meds and labs 06/11/2021: Patient doing well Settling in Refusing additional labs Pain is fairly well controlled Her 2 sons visited her today Check meds and labs Review of Systems General: Fatigue, Malaise Musculoskeletal: leg pain Objective Exam Vital Signs Vital Signs Date Time Temp Pulse Resp B/P (MAP) Pulse Ox O2 Delivery O2 Flow Rate FiO2 06/16/21 20:04 37.2 72 18 121/57 (78) 95 Room Air Capillary Refill : General Appearance: No Apparent Distress, WD/WN, Anxious, Chronically ill HEENT: PERRL/EOMI, Normal ENT Inspection, Pharynx Normal Neck: Full Range of Motion, Normal Inspection, Non Tender, Supple, Carotid Bruit Respiratory: Chest Non Tender, Lungs Clear, Normal Breath Sounds, No Accessory Muscle Use, No Respiratory Distress Cardiovascular: Regular Rate, Rhythm, No Edema, No Gallop, No JVD, No Murmur, Normal Peripheral Pulses Gastrointestinal: Normal Bowel Sounds, No Organomegaly, No Pulsatile Mass, Non Tender, Soft Back: Normal Inspection, No CVA Tenderness, No Vertebral Tenderness Extremity: Normal Capillary Refill, Normal Inspection, Normal Range of Motion (Except right leg), Non Tender, No Calf Tenderness, No Pedal Edema Neurologic/Psychiatric: Alert, Oriented x3, No Motor/Sensory Deficits, Normal Mood/Affect, preflight mechanic II-XII Norm as Tested, Abnormal Gait, Motor Weakness (Right leg) Skin: Normal Color, Warm/Dry Lymphatic: No Adenopathy Results/Procedures Lab Patient resulted labs reviewed. FIM Transfers Therapy Code Descriptions/Definitions Functional [place] Measure: 0=Not Assessed/NA 4=Minimal Assistance 1=Total Assistance 5=Supervision or Setup 2=Maximal Assistance 6=Modified [place] 3=Moderate Assistance 7=Complete IndependenceSCALE: Activities may be completed with or without assistive devices. 2-Ypfvlmblrn-ugigamo completes the activity by him/herself with no assistance from a helper. 5-Set-up or Clean-up Assistance-helper sets up or cleans up; patient completes activity. [place] assists only prior to or following the activity. 4-Supervision or Touching Assistance-helper provides verbal cues and/or touching/steadying and/or contact guard assistance as patient completes activity. Assistance may be provided throughout the activity or intermittently. 3-Partial/Moderate Assistance-helper does LESS THAN HALF the effort. [place] lifts, holds or supports trunk or limbs, but provides less than half the effort. 2-Substantial/Maximal Assistance-helper does MORE THAN HALF the effort. [place] lifts or holds trunk or limbs and provides more than half the effort. 4-Rrasdkiid-cposdo does ALL the effort. Patient does none of the effort to complete the activity. Or, the assistance of 2 or more helpers is required for the patient to complete the activity. If activity was not attempted, code reason: 7-Patient Refused. 9-Not Applicable-not attempted and the patient did not perform the activity before the current illness, exacerbation or injury. 10-Not Attempted due to Environmental Limitations-(lack of equipment, weather restraints, etc.). 88-Not Attempted due to Medical Conditions or Safety Concerns. Roll Left to Right (QC): 3 Sit to Lying (QC): 5 Sit to Stand (QC): 5 Chair/Fwc-eu-Hxymm Xfer(QC): 5 Car Transfer (QC): 3 Gait Training Does the Patient Walk?: Yes Distance: 15ft Walk 10 feet (QC): 5 Walk 50 ft with 2 Turns(QC): 5 Walk 150 ft (QC): 5 Walking 10ft/uneven surface-QC: 3 Gait Persons Needed: 1 Gait Assistive Device: FWW Wheelchair Training Does the Pt Use a Wheelchair?: No Wheel 50 ft with 2 turns (QC): 88 Wheel 150 ft (QC): 88 Stair Training #of Steps: 0 1 Step (curb) (QC): 88 4 Steps (QC): 88 12 Steps (QC): 88 Balance Picking up an Object (QC): 88 ADL-Treatment Eating (QC): 6 (IND with breakfast.) Shower/Bathe Self (QC): 4 (Pt required CGA for cleaning backside and armand area. Pt also utilized a long handled sponge during task to wash and dry R LE to abide by hip precautions. ) Upper Body Dressing (QC): 5 (Pt required set up. ) Lower Body Dressing (QC): 4 (Pt required CGA for donning/doffing pants. Pt also utilized a business analysis consultant to abide by hip precautions. ) On/Off Footwear (QC): 5 (Pt required set up, utilizing a business analysis consultant to doff slip on shoes and a shoe horn to haylie slip on shoes.) Toileting Hygiene (QC): 3 (Pt able to manage hygiene, some assistance with pant hike.) Assessment/Plan Assessment and Plan Assess & Plan/Chief Complaint Assessment: Right hip fracture sustained after repair of original right hip fracture Multiple falls Acute urinary retention Terry catheter in place UTI Hyponatremia Advanced age Poor reserve Anemia post op acute blood loss type Postop constipation Plan: Inpatient rehab protocol Bowel regimen Complete antibiotics Urinary retention management 06/11/2021: Continue bladder regimen Maintain Terry catheter due to retention Monitor labs 06/12/21: Urology consult tomorrow Monitor closely PICC Venofer 06/13/21: Monitor closely Urology PICC for IV iron infusions 06/14/21: Voiding well with catheter out Monitor closely 06/15/2021: Supportive care No DVT 06/16/2021: Continue pain management Fall risk Monitor closely (1) Hip fracture, right (2) UTI (urinary tract infection) (3) Urinary retention (4) Terry catheter in place (5) Falls (6) Hyponatremia (7) Constipation FAUSTO DAVILA DO Jun 16, 2021 10:15
--- NOTE | 2021-06-16 10:18 | Occupational Ther Daily Note ---
OT Current Status-Daily Note Subjective Pt alert, laying in bed with HOB raised when OT entered. Pt required extra encouragement from therapist to shower, pt finally agreed.. No c/o pain reported. Mental Status/Objective Patient Orientation: Person, Place, Time, Situation Attachments: IV ADL-Treatment Pt agreed to shower after extra encouragement. Pt transferred to EOB with supervision. Pt donned slip on shoes using shoe horn to maintain hip precautions. Pt sit-stand from EOB-FWW with CGA. Pt ambulated to bathroom and requested to use the toilet using FWW with CGA. Pt transferred to toilet with CGA. Pt sit-stand from toilet using grab bars and required assist to complete toilet hygiene with CGA. Pt ambulated to shower and transferred to shower bench using FWW with CGA. Pt completed shower and cleansed UB/LB see above QC's. Pt required shower bench, grab bars, hand held shower head, long handled sponge to complete shower safely. Pt required verbal cues to adhere to hip precautions throughout shower/dressing task. Pt participated in brushing hair at sink side while standing for grooming task at CGA. Pt ambulated to room and transferred to recliner using FWW with CGA. After therapy, pt sitting in recliner chair. Call light in reach and all needs met. Therapy Code Descriptions/Definitions Functional [place] Measure: 0=Not Assessed/NA 4=Minimal Assistance 1=Total Assistance 5=Supervision or Setup 2=Maximal Assistance 6=Modified [place] 3=Moderate Assistance 7=Complete IndependenceSCALE: Activities may be completed with or without assistive devices. 9-Ryvznfxjjh-specufa completes the activity by him/herself with no assistance from a helper. 5-Set-up or Clean-up Assistance-helper sets up or cleans up; patient completes activity. [place] assists only prior to or following the activity. 4-Supervision or Touching Assistance-helper provides verbal cues and/or touching/steadying and/or contact guard assistance as patient completes activity. Assistance may be provided throughout the activity or intermittently. 3-Partial/Moderate Assistance-helper does LESS THAN HALF the effort. [place] lifts, holds or supports trunk or limbs, but provides less than half the effort. 2-Substantial/Maximal Assistance-helper does MORE THAN HALF the effort. [place] lifts or holds trunk or limbs and provides more than half the effort. 0-Wchbggudc-ibqhvr does ALL the effort. Patient does none of the effort to complete the activity. Or, the assistance of 2 or more helpers is required for the patient to complete the activity. If activity was not attempted, code reason: 7-Patient Refused. 9-Not Applicable-not attempted and the patient did not perform the activity before the current illness, exacerbation or injury. 10-Not Attempted due to Environmental Limitations-(lack of equipment, weather restraints, etc.). 88-Not Attempted due to Medical Conditions or Safety Concerns. Shower/Bathe Self (QC): 4 (Pt sit-stand from shower bench to cleanse/dry armand area/buttocks with CGA. Pt required long handled sponge to cleanse/dry R LE to maintain hip precautions.) Upper Body Dressing (QC): 5 (After set up, pt donned UB dressing.) Lower Body Dressing (QC): 4 (Pt threaded BLE into LB dressing using electrotype molder to maintain hip precautions. CGA sit-stand from chair-FWW to hike LB dressing. ) Education OT Patient Education: Energy conservation, Modified ADL techniques, Reviewed precautions, Safety issues, Transfer techniques, Use of adapted equipment Teaching Recipient: Patient Teaching Methods: Demonstration, Discussion Response to Teaching: Verbalize Understanding, Return Demonstration, Reinforcement Needed OT Short Term Goals Short Term Goals Time Frame: Jun 22, 2021 Toileting hygiene: 4 Shower/bathe self: 4 Lower body dressin Putting on/taking off footwear: 4 OT Chcf Goals Chcf Goals Time Frame: Jul 01, 2021 Eating (QC): 6 Oral Hygiene (QC): 6 Toileting Hygiene (QC): 6 Shower/Bathe Self (QC): 6 Upper Body Dressing (QC): 6 Lower Body Dressing (QC): 6 On/Off Footwear (QC): 6 Additional Goals: 1-Demonstrate ADL Tasks, 2-Verbalize Understanding, 3- ImproveStrength/Etienne 1=Demonstrate adherence to instructed precautions during ADL tasks. 2=Patient will verbalize/demonstrate understanding of assistive d evices/modifications for ADL. 3=Patient will improve strength/tolerance for activity to enable patient to perform ADL's. OT Education/Plan Problem List/Assessment Assessment: Decreased Activ Tolerance, Decreased Safety Aware, Decreased UE Strength, Impaired Self-Care Skills Discharge Recommendations Plan/Recommendations: Continue POC Treatment Plan/Plan of Care Patient would benefit from OT for education, treatment and training to promote independence in ADL's, mobility, safety and/or upper extremity function for ADL's. Plan of Care: ADL Retraining, Functional Mobility, Group Exercise/Act as Ind, UE Funct Exercise/Act Treatment Duration: Jul 01, 2021 Frequency: At least 5 of 7 days/Wk (IRF) Estimated Hrs Per Day: 1.5 hours per day Agreement: Yes Rehab Potential: Good Time/GCodes Start Time: 09:00 Stop Time: 10:00 Total Time Billed (hr/min): 60 Billed Treatment Time 1 visit- ADL 4 (60 mins) CANDELARIA PINTO Jun 16, 2021 10:18
[2021-06-16] MEDS ORDERED: DICLOFENAC 1% GEL 100 GM (VOLTAREN) TUBE TOP PRN (10:45)
[2021-06-16] MEDS: NYSTATIN ORAL SUSP 5 ML UDC PO SCH ×4 (10:55→20:31)
[2021-06-16] MEDS: fluCOnazole (DIFLUCAN) 100 MG TAB PO SCH (10:55)
--- NOTE | 2021-06-16 11:32 | Speech Therapy Daily Note ---
Speech Daily Progress Note Subjective Date Seen by Provider: Jun 16, 2021 Time Seen by Provider: 00:30 Patient was resting in her recliner when I entered her room for our cognitive session. Objective Patient completed recall of information related to her mobility and safety with her fractured hip precautions with 75% given moderate verbal/visual cuing. Assessment Assessment Current Status: Good Progress Treatment Plan Continue Plan of Care Speech Short Term Goals Short Term Goals Short Term Goals 1.The pt will complete daily memory tasks at 80% accy with min cues. 2. The pt will complete daily safety awareness tasks with 80% accy. 3. The pt will complete daily problem solving task with 80% accy. Speech Half-Way Goals Health Sciences Manager Goals The pt will improve cognitive-communication abilities for functional daily living. Speech-Plan Patient/Family Goals Patient/Family Goals: Patient plans on returning to her home where she lives with her son. Treatment Plan Speech Therapy Treatment Plan: Continue Plan of Care Treatment Duration: Jun 24, 2021 Frequency: 5 times per week Estimated Hrs Per Day: .5 hour per day Rehab Potential: Good Barriers to Learning: Patient's decreased mobility and cognitive status. Pt/Family Agrees to Plan: Yes Safety Risks/Education Teaching Recipient: Patient Teaching Methods: Demonstration, Discussion Response to Teaching: Verbalize Understanding, Return Demonstration Education Topics Provided: Continued safety awareness Time Speech Therapy Time In: 10:30 Speech Therapy Time Out: 11:00 Total Billed Time: 30 Billed Treatment Time 1[address] Jun 16, 2021 11:32
--- NOTE | 2021-06-16 12:13 | Physical Therapy Daily Note ---
PT Daily Note-Current Subjective Pt sitting in recliner upon arrival. Pt agrees to PT. Pain Location: Medial Location Body Site: Pelvic Pain Description: Ache Comment: Reports but doesn't rate Mental Status Patient Orientation: Person, Confused, Place Transfers SCALE: Activities may be completed with or without assistive devices. 0-Pvsqcfzudi-ylirukz completes the activity by him/herself with no assistance from a helper. 5-Set-up or Clean-up Assistance-helper sets up or cleans up; patient completes activity. [place] assists only prior to or following the activity. 4-Supervision or Touching Assistance-helper provides verbal cues and/or touching/steadying and/or contact guard assistance as patient completes activity. Assistance may be provided throughout the activity or intermittently. 3-Partial/Moderate Assistance-helper does LESS THAN HALF the effort. [place] lifts, holds or supports trunk or limbs, but provides less than half the effort. 2-Substantial/Maximal Assistance-helper does MORE THAN HALF the effort. [place] lifts or holds trunk or limbs and provides more than half the effort. 4-Jiwexexou-qctjir does ALL the effort. Patient does none of the effort to complete the activity. Or, the assistance of 2 or more helpers is required for the patient to complete the activity. If activity was not attempted, code reason: 7-Patient Refused. 9-Not Applicable-not attempted and the patient did not perform the activity before the current illness, exacerbation or injury. 10-Not Attempted due to Environmental Limitations-(lack of equipment, weather restraints, etc.). 88-Not Attempted due to Medical Conditions or Safety Concerns. Sit to Stand (QC): 5 Weight Bearing Right Lower Extremity: Right Weight Bearing/Tolerated Gait Training Does the Patient Walk?: Yes Distance: 125' x2 Walk 10 feet (QC): 5 Walk 50 ft with 2 Turns(QC): 5 Gait Persons Needed: 1 Gait Assistive Device: FWW Exercises Seated Therapy Exercises: Ankle pumps, Long arc quads, Hip flexion, Hip abd/add, Glut set Seated Reps: 20 (2 sets with RB in between) Treatments TF to standing and amb. in hallway. RB as needed before amb. again. Pt returns to room to rest then completes Seated EX in recliner (2 sets w/RB as needed). Pt needs redirection as times to stay on task. Pt has all needs met, call light in hand and lunch arriving at end of tx. Assessment Current Status: Fair Progress VC needed to redirect to stay on task. Pt walks with slow marvin. Pt fatigues easily and needs RB to recover. Pt needs encouragement at times. PT Short Term Goals Short Term Goals Time Frame: Jun 25, 2021 Roll Left & Right: 4 Sit to lyin Lying to sitting on side of be: 4 Sit to stand: 4 Chair/zfj-dp-akeha transfer: 4 Toilet transfer: 4 Car transfer: 4 Walk 10 feet: 4 Walk 50 feet with two turns: 4 Walk 150 feet: 4 Walking 10ft on uneven surface: 4 1 step (curb): 3 4 steps: 3 12 steps: 3 Picking up objects: 4 Does pt use a wc or scooter: No PT Tobacco Flavorer Goals Tobacco Flavorer Goals PT Tobacco Flavorer Goals Time Frame: Jul 23, 2021 Roll Left & Right (QC): 5 Sit to Lying (QC): 5 Lying-Sitting on Side/Bed(QC): 5 Sit to Stand (QC): 5 Chair/Imu-wq-Oaozt Xfer(QC): 5 Toilet Transfer (QC): 5 Car Transfer (QC): 5 Does the Patient Walk: Yes Walk 10 feet (QC): 5 Walk 50ft with 2 Turns (QC): 5 Walk 150 ft (QC): 5 Walking 10ft on Uneven Surface: 5 1 Step (curb) (QC): 4 4 Steps (QC): 4 12 Steps (QC): 4 Picking up an Object (QC): 5 Does the Pt use WC or Scooter?: No Wheel 50 feet with 2 turns (QC: 88 Wheel 150 feet: 88 PT Plan Problem List Problem List: Activity Tolerance, Functional Strength, Safety, Gait Treatment/Plan Treatment Plan: Continue Plan of Care Treatment Plan: Bed Mobility, Concurrent Therapy, Education, Functional Activity Etienne, Functional Strength, Group Therapy, Gait, Safety, Therapeutic Exercise, Transfers Treatment Duration: Aug 24, 2021 Frequency: At least 5 of 7 days/Wk (IRF) Estimated Hrs Per Day: 1.5 hours per day Patient and/or Family Agrees t: Yes Safety Risks/Education Patient Education: Gait Training, Transfer Techniques, Reviewed Precautions, Correct Positioning, Safety Issues Teaching Recipient: Patient Teaching Methods: Discussion Response to Teaching: Reinforcement Needed Time/GCodes Time In: 1100 Time Out: 1215 Total Billed Treatment Time: 75 Total Billed Treatment 1, GT x2 (30m), FA (15m) & EX x2 (30m) ALLAN CARDOZO PRETZEL TWISTER Jun 16, 2021 12:13
--- NOTE | 2021-06-16 14:06 | Occupational Ther Daily Note ---
OT Current Status-Daily Note Subjective Pt alert, laying in bed when OT entered. Pt agreed to therapy. No c/o pain reported. Mental Status/Objective Patient Orientation: Person, Place, Time, Situation ADL-Treatment Therapy Code Descriptions/Definitions Functional [place] Measure: 0=Not Assessed/NA 4=Minimal Assistance 1=Total Assistance 5=Supervision or Setup 2=Maximal Assistance 6=Modified [place] 3=Moderate Assistance 7=Complete IndependenceSCALE: Activities may be completed with or without assistive devices. 3-Vcjybugjch-njteggt completes the activity by him/herself with no assistance from a helper. 5-Set-up or Clean-up Assistance-helper sets up or cleans up; patient completes activity. [place] assists only prior to or following the activity. 4-Supervision or Touching Assistance-helper provides verbal cues and/or to uching/steadying and/or contact guard assistance as patient completes activity. Assistance may be provided throughout the activity or intermittently. 3-Partial/Moderate Assistance-helper does LESS THAN HALF the effort. [place] lifts, holds or supports trunk or limbs, but provides less than half the effort. 2-Substantial/Maximal Assistance-helper does MORE THAN HALF the effort. [place] lifts or holds trunk or limbs and provides more than half the effort. 4-Qsnbywmwu-ucgqwd does ALL the effort. Patient does none of the effort to complete the activity. Or, the assistance of 2 or more helpers is required for the patient to complete the activity. If activity was not attempted, code reason: 7-Patient Refused. 9-Not Applicable-not attempted and the patient did not perform the activity before the current illness, exacerbation or injury. 10-Not Attempted due to Environmental Limitations-(lack of equipment, weather restraints, etc.). 88-Not Attempted due to Medical Conditions or Safety Concerns. Other Treatment Skilled instruction required of BUE red therband exercises. Pt completed x2 sets of 10 reps of BUE red theraband exercises while laying in bed with HOB raised to increase BUE strength for improved safety and independence when completing daily task. Pt required verbal direction and demonstration of exercises, pt able to return demonstration. Pt required increased time to complete exercises due to talking. Pt required resting break in between set due to fatigue and decreased BUE strength. After session, pt laying in bed. Call light in reach and all needs met. Education OT Patient Education: Energy conservation, Exercise program, Purpose of tx/functional activities Teaching Recipient: Patient Teaching Methods: Demonstration, Discussion Response to Teaching: Verbalize Understanding, Return Demonstration OT Short Term Goals Short Term Goals Time Frame: Jun 22, 2021 Toileting hygiene: 4 Shower/bathe self: 4 Lower body dressin Putting on/taking off footwear: 4 OT Car Installations Supervisor Goals [facility] Goals Time Frame: Jul 01, 2021 Eating (QC): 6 Oral Hygiene (QC): 6 Toileting Hygiene (QC): 6 Shower/Bathe Self (QC): 6 Upper Body Dressing (QC): 6 Lower Body Dressing (QC): 6 On/Off Footwear (QC): 6 Additional Goals: 1-Demonstrate ADL Tasks, 2-Verbalize Understanding, 3- ImproveStrength/Etienne 1=Demonstrate adherence to instructed precautions during ADL tasks. 2=Patient will verbalize/demonstrate understanding of assistive devices/modif ications for ADL. 3=Patient will improve strength/tolerance for activity to enable patient to perform ADL's. OT Education/Plan Problem List/Assessment Assessment: Decreased Activ Tolerance, Decreased Safety Aware, Decreased UE Strength, Impaired Self-Care Skills Discharge Recommendations Plan/Recommendations: Continue POC Treatment Plan/Plan of Care Patient would benefit from OT for education, treatment and training to promote independence in ADL's, mobility, safety and/or upper extremity function for ADL's. Plan of Care: ADL Retraining, Functional Mobility, Group Exercise/Act as Ind, UE Funct Exercise/Act Treatment Duration: Jul 01, 2021 Frequency: At least 5 of 7 days/Wk (IRF) Estimated Hrs Per Day: 1.5 hours per day Agreement: Yes Rehab Potential: Good Time/GCodes Start Time: 13:30 Stop Time: 13:45 Total Time Billed (hr/min): 15 Billed Treatment Time 1 visit- EX 1 (15 mins) CANDELARIA PINTO Jun 16, 2021 14:06
[2021-06-16 20:04] VITALS: BP_SYST 118; BP_SYST 121; BP_DIAS 57
[2021-06-16] MEDS: [UNRECOGNIZED DRUG - REMARK] TP SCH (20:31)
[2021-06-17] MEDS: CYANOCOBALAMIN 1,000 MCG (VITAMIN B-12) TABLET PO SCH (05:30)
[2021-06-17] MEDS: BETHANECHOL 25 MG (URECHOLINE) TAB PO SCH ×3 (05:30→17:42)
--- NOTE | 2021-06-17 06:12 | PM&R Progress Note ---
Subjective HPI/CC On Admission Date Seen by Provider: Jun 17, 2021 Time Seen by Provider: 06:00 Subjective/Events-last exam 06/17/21: Pt having no new concerns Fluid restriction DC Checked meds and labs Oxycodone will be DC since it causes delirium 06/16/2021: Patient doing better Decreasing Urecholine per urology Flomax was discontinued Post void residual are minimal Voltaren gel will be used 06/15/2021: Patient doing a lot better Right groin pain with leg pain prompted ultrasound no DVT Performed Magui maneuver by therapy yesterday and everything within normal limits Getting second dose of iron infusion Amoxicillin plus Vanco p.o. maintained Increase fluid restriction to 1500 cc 06/14/21: Patient feels good Kpad to neck will be provided for muscle spasm No other pain reported Loose BM Terry out and voiding well Confused last night 06/13/21: Patient doing well Urology consulted Terry in place Urecholine maintained WBC normal IV iron infusion will be started after PICC placed tomorrow 06/12/21: Patient doing well Pain is controlled Urology will be consulted tomorrow Monitor closely Check meds and labs 06/11/2021: Patient doing well Settling in Refusing additional labs Pain is fairly well controlled Her 2 sons visited her today Check meds and labs Review of Systems General: Fatigue, Malaise Musculoskeletal: leg pain Objective Exam Vital Signs Vital Signs Date Time Temp Pulse Resp B/P (MAP) Pulse Ox O2 Delivery O2 Flow Rate FiO2 06/17/21 20:26 95 Room Air 06/17/21 19:59 36.9 68 18 134/61 (85) Capillary Refill : General Appearance: No Apparent Distress, WD/WN, Anxious, Chronically ill HEENT: PERRL/EOMI, Normal ENT Inspection, Pharynx Normal Neck: Full Range of Motion, Normal Inspection, Non Tender, Supple, Carotid Bru it Respiratory: Chest Non Tender, Lungs Clear, Normal Breath Sounds, No Accessory Muscle Use, No Respiratory Distress Cardiovascular: Regular Rate, Rhythm, No Edema, No Gallop, No JVD, No Murmur, Normal Peripheral Pulses Gastrointestinal: Normal Bowel Sounds, No Organomegaly, No Pulsatile Mass, Non Tender, Soft Back: Normal Inspection, No CVA Tenderness, No Vertebral Tenderness Extremity: Normal Capillary Refill, Normal Inspection, Normal Range of Motion (Except right leg), Non Tender, No Calf Tenderness, No Pedal Edema Neurologic/Psychiatric: Alert, Oriented x3, No Motor/Sensory Deficits, Normal Mood/Affect, cloth weaver II-XII Norm as Tested, Abnormal Gait, Motor Weakness (Right leg) Skin: Normal Color, Warm/Dry Lymphatic: No Adenopathy Results/Procedures Lab Patient resulted labs reviewed. FIM Transfers Therapy Code Descriptions/Definitions Functional [place] Measure: 0=Not Assessed/NA 4=Minimal Assistance 1=Total Assistance 5=Supervision or Setup 2=Maximal Assistance 6=Modified [place] 3=Moderate Assistance 7=Complete IndependenceSCALE: Activities may be completed with or without assistive devices. 5-Luhcogastv-mihmufq completes the activity by him/herself with no assistance fr om a helper. 5-Set-up or Clean-up Assistance-helper sets up or cleans up; patient completes activity. [place] assists only prior to or following the activity. 4-Supervision or Touching Assistance-helper provides verbal cues and/or touching/steadying and/or contact guard assistance as patient completes activity. Assistance may be provided throughout the activity or intermittently. 3-Partial/Moderate Assistance-helper does LESS THAN HALF the effort. [place] lifts, holds or supports trunk or limbs, but provides less than half the effort. 2-Substantial/Maximal Assistance-helper does MORE THAN HALF the effort. [place] lifts or holds trunk or limbs and provides more than half the effort. 1-Jrmepbvli-cmkqjc does ALL the effort. Patient does none of the effort to complete the activity. Or, the assistance of 2 or more helpers is required for the patient to complete the activity. If activity was not attempted, code reason: 7-Patient Refused. 9-Not Applicable-not attempted and the patient did not perform the activity before the current illness, exacerbation or injury. 10-Not Attempted due to Environmental Limitations-(lack of equipment, weather restraints, etc.). 88-Not Attempted due to Medical Conditions or Safety Concerns. Roll Left to Right (QC): 3 Sit to Lying (QC): 5 Sit to Stand (QC): 5 Chair/Wbr-fw-Ogldn Xfer(QC): 5 Car Transfer (QC): 3 Gait Training Does the Patient Walk?: Yes Distance: 125' x2 Walk 10 feet (QC): 5 Walk 50 ft with 2 Turns(QC): 5 Walk 150 ft (QC): 5 Walking 10ft/uneven surface-QC: 3 Gait Persons Needed: 1 Gait Assistive Device: FWW Wheelchair Training Does the Pt Use a Wheelchair?: No Wheel 50 ft with 2 turns (QC): 88 Wheel 150 ft (QC): 88 Stair Training #of Steps: 0 1 Step (curb) (QC): 88 4 Steps (QC): 88 12 Steps (QC): 88 Balance Picking up an Object (QC): 88 ADL-Treatment Eating (QC): 6 (IND with breakfast.) Shower/Bathe Self (QC): 4 (Pt sit-stand from shower bench to cleanse/dry armand area/buttocks with CGA. Pt required long handled sponge to cleanse/dry R LE to maintain hip precautions.) Upper Body Dressing (QC): 5 (After set up, pt donned UB dressing.) Lower Body Dressing (QC): 4 (Pt threaded BLE into LB dressing using vp legal affairs to maintain hip precautions. CGA sit-stand from chair-FWW to hike LB dressing. ) On/Off Footwear (QC): 5 (Pt required set up, utilizing a vp legal affairs to doff slip on shoes and a shoe horn to haylie slip on shoes.) Toileting Hygiene (QC): 3 (Pt able to manage hygiene, some assistance with pant hike.) Assessment/Plan Assessment and Plan Assess & Plan/Chief Complaint Assessment: Right hip fracture sustained after repair of original right hip fracture Multiple falls Acute urinary retention Terry catheter in place UTI Hyponatremia Advanced age Poor reserve Anemia post op acute blood loss type Postop constipation Plan: Inpatient rehab protocol Bowel regimen Complete antibiotics Urinary retention management 06/11/2021: Continue bladder regimen Maintain Terry catheter due to retention Monitor labs 06/12/21: Urology consult tomorrow Monitor closely PICC Venofer 06/13/21: Monitor closely Urology PICC for IV iron infusions 06/14/21: Voiding well with catheter out Monitor closely 06/15/2021: Supportive care No DVT 06/16/2021: Continue pain management Fall risk Monitor closely 06/17/21: Continue aggressive treatment (1) Hip fracture, right (2) UTI (urinary tract infection) (3) Urinary retention (4) Terry catheter in place (5) Falls (6) Hyponatremia (7) Constipation FAUSTO DAVILA DO Jun 17, 2021 06:12
[2021-06-17 07:51] VITALS: BP 125/61
--- NOTE | 2021-06-17 07:56 | Physician Query Clarification ---
PQ-Link Infection to Dev/Proc Admission/Discharge Admission Date: Jun 10, 2021 at 17:51 Discharge Date: Dr. Davila, The medical record reflects the following clinical scenario: History/Risk Factors: periprosthetic fx rt hip, UTI, urinary retention Clinical Findings: She requires indwelling Lucero catheter due to urinary retention so she will need urology follow-up in addition she has a current UTI and amoxicillin is ordered. Treatment: PO Amoxicillin, PO Vancomycin Question: Can you specify if the UTI is due to/associated with indwelling lucero catheter? Please document a response in Progress Note or Discharge Summary. 1. Yes - UTI is due to/associated with indwelling lucero catheter. 2. No - UTI is due to/associated with indwelling lucero catheter. 3. Other, with explanation of the clinical findings. 4. Clinically undetermined, no explanation for the clinical findings. PHYSICIAN RESPONSE Specify if infection: 2 Please remember a lack of response to the above will prompt a phone page by CDI/Coding staff. In responding to this query, please exercise your independent professional judgment. The purpose of this communication is to more accurately reflect the complexity of your patients condition. The fact that a question is asked does not imply that any particular answer is desired or expected. Thank you for your timely response to this clarification. Requestors name: Luigi THIS PHYSICIAN QUERY FORM IS A PERMANENT PART OF THE MEDICAL RECORD LUIGI SOW Jun 17, 2021 07:56 FAUSTO DAVILA DO Jun 17, 2021 17:06
[2021-06-17] MEDS: fluCOnazole (DIFLUCAN) 100 MG TAB PO SCH (08:26)
[2021-06-17] MEDS: AMOXICILLIN 500 MG (POLYMOX) CAP PO SCH ×2 (08:26→13:40)
[2021-06-17] MEDS: NYSTATIN ORAL SUSP 5 ML UDC PO SCH ×4 (08:26→20:21)
[2021-06-17] MEDS: IRON SUCROSE 200 MG/10 ML (VENOFER) VIAL IV SCH (08:26)
[2021-06-17] MEDS: SODIUM CHLORIDE 1 GM TABLET PO SCH ×3 (08:26→20:21)
[2021-06-17] MEDS: LIDOCAINE 4% (SALONPAS) PATCH TP SCH (08:27)
[2021-06-17] MEDS: DOCUSATE SODIUM 100 MG (COLACE) CAP PO SCH ×2 (08:27→18:58)
[2021-06-17] MEDS: polyethylene glycoL POWDER 17 GM (MIRALAX) PACK PO SCH ×2 (08:27→18:59)
[2021-06-17] MEDS: VANCOMYCIN 125 MG CAPSULE PO SCH ×2 (08:27→20:19)
[2021-06-17] MEDS: LACTOBACILLUS ACIDOPHILUS (PROBIOTIC) CAPSULE PO SCH ×2 (08:27→20:19)
[2021-06-17] MEDS: SENNA W/DOCUSATE (SENOKOT S) TABLET PO SCH ×2 (08:27→18:59)
[2021-06-17] MEDS: ASPIRIN E.C. 81 MG (ECOTRIN) TAB PO SCH ×2 (08:27→20:19)
[2021-06-17] MEDS: CATHETER FLUSH 10 ML SYR IV SCH ×2 (08:28→20:21)
--- NOTE | 2021-06-17 11:03 | Speech Therapy Daily Note ---
Speech Daily Progress Note Subjective Date Seen by Provider: Jun 17, 2021 Time Seen by Provider: 00:30 Patient was resting in bed watching television, alert and participated well with therapy. Objective Patient demonstrated recall of new information regarding precautions at 80% with decreased cuing. Assessment Assessment Current Status: Good Progress Treatment Plan Continue Plan of Care Speech Short Term Goals Short Term Goals Short Term Goals 1.The pt will complete daily memory tasks at 80% accy with min cues. 2. The pt will complete daily safety awareness tasks with 80% accy. 3. The pt will complete daily problem solving task with 80% accy. Speech Dental Cream Maker Goals Dental Cream Maker Goals The pt will improve cognitive-communication abilities for functional daily living. Speech-Plan Patient/Family Goals Patient/Family Goals: Patient plans on returning to her home where she lives with her son. Treatment Plan Speech Therapy Treatment Plan: Continue Plan of Care Treatment Duration: Jun 24, 2021 Frequency: 5 times per week Estimated Hrs Per Day: .5 hour per day Rehab Potential: Good Barriers to Learning: Patient's physical status, cognitive deficits Pt/Family Agrees to Plan: Yes Safety Risks/Education Teaching Recipient: Patient Teaching Methods: Demonstration, Discussion Response to Teaching: Verbalize Understanding, Return Demonstration Education Topics Provided: Continued safety with mobility, communication of wants/needs Time Speech Therapy Time In: 10:30 Speech Therapy Time Out: 11:00 Total Billed Time: 30 Billed Treatment Time 1[address] Jun 17, 2021 11:03
--- NOTE | 2021-06-17 11:18 | Occupational Ther Daily Note ---
OT Current Status-Daily Note Subjective Pt alert, laying in bed when OT entered. Pt agreed to therapy. No c/o pain reported. Pt declined completing oral hygiene/grooming. Mental Status/Objective Patient Orientation: Person, Place, Time, Situation ADL-Treatment Therapy Code Descriptions/Definitions Functional [place] Measure: 0=Not Assessed/NA 4=Minimal Assistance 1=Total Assistance 5=Supervision or Setup 2=Maximal Assistance 6=Modified [place] 3=Moderate Assistance 7=Complete IndependenceSCALE: Activities may be completed with or without assistive devices. 1-Lpyptiirqh-peheiio completes the activity by him/herself with no assistance from a helper. 5-Set-up or Clean-up Assistance-helper sets up or cleans up; patient completes activity. [place] assists only prior to or following the activity. 4-Supervision or Touching Assistance-helper provides verbal cues and/or touching/steadying and/or contact guard assistance as patient completes activity. Assistance may be provided throughout the activity or intermittently. 3-Partial/Moderate Assistance-helper does LESS THAN HALF the effort. [place] lifts, holds or supports trunk or limbs, but provides less than half the effort. 2-Substantial/Maximal Assistance-helper does MORE THAN HALF the effort. [place] lifts or holds trunk or limbs and provides more than half the effort. 4-Usqyosrcn-bndsqa does ALL the effort. Patient does none of the effort to complete the activity. Or, the assistance of 2 or more helpers is required for the patient to complete the activity. If activity was not attempted, code reason: 7-Patient Refused. 9-Not Applicable-not attempted and the patient did not perform the activity before the current illness, exacerbation or injury. 10-Not Attempted due to Environmental Limitations-(lack of equipment, weather restraints, etc.). 88-Not Attempted due to Medical Conditions or Safety Concerns. On/Off Footwear: 5 (After set up, pt donned shoes using shoe horn.) Other Treatment Pt transferred from supine-EOB with supervision. Pt transferred from EOB-FWW with SBA. Pt participated in functional mobility task from room to gym using FWW with SBA for improved safety in home. Pt required resting break in ARU commons due to decreased activity tolerance. Once in gym, participated in 7 min arm bike exercise at min resistance to increase BUE strength for improved independence with ADLs. Pt required multiple resting break throughout exercise due to going too fast. Pt required extra encouragement to slow down on arm bike and pt stated " I do everything fast." Pt participated in FM task of grasping clothespin and placing them around container with 1lb weight around each arm to increase BUE FM skills and hand strength. Pt tolerated task well on RUE but required assist using BUE with LUE due to decreased coordination. Pt sit-stand from chair-FWW with SBA. Pt ambulated from gym to room using FWW with CGA. Pt required resting break in ARU commons due to fatigue. Pt transferred to EOB with SBA. After session, pt sitting at EOB beginning to eat breakfast. Call light in reach and all needs met. Education OT Patient Education: Energy conservation, Exercise program, Purpose of tx/functional activities Teaching Recipient: Patient Teaching Methods: Demonstration, Discussion Response to Teaching: Verbalize Understanding, Return Demonstration, Reinforcement Needed OT Short Term Goals Short Term Goals Time Frame: Jun 22, 2021 Toileting hygiene: 4 Shower/bathe self: 4 Lower body dressin Putting on/taking off footwear: 4 OT Tube Coverer Goals Tube Coverer Goals Time Frame: Jul 01, 2021 Eating (QC): 6 Oral Hygiene (QC): 6 Toileting Hygiene (QC): 6 Shower/Bathe Self (QC): 6 Upper Body Dressing (QC): 6 Lower Body Dressing (QC): 6 On/Off Footwear (QC): 6 Additional Goals: 1-Demonstrate ADL Tasks, 2-Verbalize Understanding, 3- ImproveStrength/Etienne 1=Demonstrate adherence to instructed precautions during ADL tasks. 2=Patient will verbalize/demonstrate understanding of assistive devices/modifications for ADL. 3=Patient will improve strength/tolerance for activity to enable patient to perform ADL's. OT Education/Plan Problem List/Assessment Assessment: Decreased Activ Tolerance, Decreased UE Strength, Impaired Self- Care Skills Discharge Recommendations Plan/Recommendations: Continue POC Treatment Plan/Plan of Care Patient would benefit from OT for education, treatment and training to promote independence in ADL's, mobility, safety and/or upper extremity function for ADL's. Plan of Care: ADL Retraining, Functional Mobility, Group Exercise/Act as Ind, UE Funct Exercise/Act Treatment Duration: Jul 01, 2021 Frequency: At least 5 of 7 days/Wk (IRF) Estimated Hrs Per Day: 1.5 hours per day Agreement: Yes Rehab Potential: Good Time/GCodes Start Time: 09:00 Stop Time: 10:00 Total Time Billed (hr/min): 60 Billed Treatment Time 1 visit - FA 2( 37 mins) EX 2 (23 mins) 60 mins CANDELARIA PINTO Jun 17, 2021 11:18
--- NOTE | 2021-06-17 11:42 | Physical Therapy Daily Note ---
PT Daily Note-Current Subjective Pt in bed upon arrival, initially refuses therapy. Pt agrees to use bathroom and go walk. Pt states no pain, but will yell out when bringing R LE into bed. Mental Status Patient Orientation: Person, Confused, Place Transfers SCALE: Activities may be completed with or without assistive devices. 6-Cgvxzcgaza-hlliari completes the activity by him/herself with no assistance from a helper. 5-Set-up or Clean-up Assistance-helper sets up or cleans up; patient completes activity. [place] assists only prior to or following the activity. 4-Supervision or Touching Assistance-helper provides verbal cues and/or touching/steadying and/or contact guard assistance as patient completes activity. Assistance may be provided throughout the activity or intermittently. 3-Partial/Moderate Assistance-helper does LESS THAN HALF the effort. [place] lifts, holds or supports trunk or limbs, but provides less than half the effort. 2-Substantial/Maximal Assistance-helper does MORE THAN HALF the effort. [place] lifts or holds trunk or limbs and provides more than half the effort. 0-Wlfyswosl-bktcdk does ALL the effort. Patient does none of the effort to complete the activity. Or, the assistance of 2 or more helpers is required for the patient to complete the activity. If activity was not attempted, code reason: 7-Patient Refused. 9-Not Applicable-not attempted and the patient did not perform the activity before the current illness, exacerbation or injury. 10-Not Attempted due to Environmental Limitations-(lack of equipment, weather restraints, etc.). 88-Not Attempted due to Medical Conditions or Safety Concerns. Sit to Lying (QC): 5 Lying to Sitting/Side of Bed(Q: 5 Sit to Stand (QC): 5 Weight Bearing Right Lower Extremity: Right Weight Bearing/Tolerated Gait Training Does the Patient Walk?: Yes Distance: 100' Walk 10 feet (QC): 5 Walk 50 ft with 2 Turns(QC): 5 Gait Assistive Device: FWW Pt has slow, shuffling, slightly antalgic gait on R LE. Exercises Supine Ex: Straight leg raise, Hip abd/add Supine Reps: 15 Seated Therapy Exercises: Ankle pumps, Long arc quads Seated Reps: 15 Treatments Pt in bed, supine to sit and sit to stand SBA and amb to bathroom. Pt able to doff pants and clean self, needed A with changing brief. Pt then amb 100' on ARU and returns to room. Pt sits EOB to complete seated ex, then sit to supine SBA with VC for precautions. pt completes supine ex, then is left in bed with all needs met, call light in hand. Assessment Current Status: Fair Progress Pt requires encouragement to participate in therapy. Pt states "I would benefit more from just walking to my door and back every hour. More than doing therapy with anybody during the day." PT Short Term Goals Short Term Goals Time Frame: Jun 25, 2021 Roll Left & Right: 4 Sit to lyin Lying to sitting on side of be: 4 Sit to stand: 4 Chair/twt-bf-lgudz transfer: 4 Toilet transfer: 4 Car transfer: 4 Walk 10 feet: 4 Walk 50 feet with two turns: 4 Walk 150 feet: 4 Walking 10ft on uneven surface: 4 1 step (curb): 3 4 steps: 3 12 steps: 3 Picking up objects: 4 Does pt use a wc or scooter: No PT Fdc Goals Fdc Goals PT Fdc Goals Time Frame: Jul 23, 2021 Roll Left & Right (QC): 5 Sit to Lying (QC): 5 Lying-Sitting on Side/Bed(QC): 5 Sit to Stand (QC): 5 Chair/Gxk-op-Vidvd Xfer(QC): 5 Toilet Transfer (QC): 5 Car Transfer (QC): 5 Does the Patient Walk: Yes Walk 10 feet (QC): 5 Walk 50ft with 2 Turns (QC): 5 Walk 150 ft (QC): 5 Walking 10ft on Uneven Surface: 5 1 Step (curb) (QC): 4 4 Steps (QC): 4 12 Steps (QC): 4 Picking up an Object (QC): 5 Does the Pt use WC or Scooter?: No Wheel 50 feet with 2 turns (QC: 88 Wheel 150 feet: 88 PT Plan Treatment/Plan Treatment Plan: Continue Plan of Care Treatment Plan: Bed Mobility, Concurrent Therapy, Education, Functional Activity Etienne, Functional Strength, Group Therapy, Gait, Safety, Therapeutic Exercise, Transfers Treatment Duration: Aug 24, 2021 Frequency: At least 5 of 7 days/Wk (IRF) Estimated Hrs Per Day: 1.5 hours per day Patient and/or Family Agrees t: Yes Time/GCodes Time In: 1100 Time Out: 1145 Total Billed Treatment Time: 45 Total Billed Treatment 1, GT, EX, FA ESTELA RIVERA SUPERVISOR [employer] Jun 17, 2021 11:42
--- NOTE | 2021-06-17 14:50 | Therapy Group Daily Note ---
Therapy Daily Group Note Patient Education Topic Home Safety, Fall Prevention, Other List Below (Floor transfer after fall) Exercises LE Seated Exercise, UE Exercise Session Ratio (pt:therapist): 3:1 Goal of Session: Education on ARU Expectations, Home Safety Strategies, UE/LE Strengthing Goal Met for this Session: Yes Pt Benefit of Group: Contributions to Others, F/U Use of Strategies @Home, Increased Functional Safety, Increased Functional Strength, Improved Cognition, Recognition of Peers, Socialization Other/Notes Pt ambulated using FWW to [facility] for OT/PT group. Group consisted of introductions (name, place living, memory from childhood), socialization, seated UE/LE exercises, and educational topics consisting of fall risk/prevention, education on floor transfer after fall, and home safety. Pt introduced self appropriately, actively listened to peers. Pt able to complete B UE/LE seated exercises while maintaining hip precautions. Pt acknowledged understanding of educational topics by verbalizing understanding and giving personal stories. Pt participated in a cognitive word activity . After session, pt sitting in recliner. Call light/phone in reach. All needs met in room. Start Time: 13:00 Stop Time: 14:15 Total Billed Treatment Time: 75 Total Billed Treatment 1, GRP (75 mins) CANDELARIA PINTO Jun 17, 2021 14:49
[2021-06-17] MEDS ORDERED: BETHANECHOL 25 MG (URECHOLINE) TAB PO SCH (19:30)
[2021-06-17 19:59] VITALS: BP 134/61
[2021-06-17] MEDS: [UNRECOGNIZED DRUG - REMARK] TP SCH (20:21)
[2021-06-18] MEDS: CYANOCOBALAMIN 1,000 MCG (VITAMIN B-12) TABLET PO SCH (05:41)
--- NOTE | 2021-06-18 06:22 | PM&R Progress Note ---
Subjective HPI/CC On Admission Date Seen by Provider: Jun 18, 2021 Time Seen by Provider: 06:20 Subjective/Events-last exam 06/18/2021: Patient doing well Taking her own mag citrate tablets out of her purse Loose stools were occurring Check meds and labs 06/17/21: Pt having no new concerns Fluid restriction DC Checked meds and labs Oxycodone will be DC since it causes delirium 06/16/2021: Patient doing better Decreasing Urecholine per urology Flomax was discontinued Post void residual are minimal Voltaren gel will be used 06/15/2021: Patient doing a lot better Right groin pain with leg pain prompted ultrasound no DVT Performed Magui maneuver by therapy yesterday and everything within normal limits Getting second dose of iron infusion Amoxicillin plus Vanco p.o. maintained Increase fluid restriction to 1500 cc 06/14/21: Patient feels good Kpad to neck will be provided for muscle spasm No other pain reported Loose BM Terry out and voiding well Confused last night 06/13/21: Patient doing well Urology consulted Terry in place Urecholine maintained WBC normal IV iron infusion will be started after PICC placed tomorrow 06/12/21: Patient doing well Pain is controlled Urology will be consulted tomorrow Monitor closely Check meds and labs 06/11/2021: Patient doing well Settling in Refusing additional labs Pain is fairly well controlled Her 2 sons visited her today Check meds and labs Review of Systems General: Fatigue, Malaise Objective Exam Vital Signs Vital Signs Date Time Temp Pulse Resp B/P (MAP) Pulse Ox O2 Delivery O2 Flow Rate FiO2 06/18/21 08:23 36.2 80 20 116/60 (78) 97 Room Air Capillary Refill : General Appearance: No Apparent Distress, WD/WN, Anxious, Chronically ill HEENT: PERRL/EOMI, Normal ENT Inspection, Pharynx Normal Neck: Full Range of Motion, Normal Inspection, Non Tender, Supple, Carotid Bruit Respiratory: Chest Non Tender, Lungs Clear, Normal Breath Sounds, No Accessory Muscle Use, No Respiratory Distress Cardiovascular: Regular Rate, Rhythm, No Edema, No Gallop, No JVD, No Murmur, Normal Peripheral Pulses Gastrointestinal: Normal Bowel Sounds, No Organomegaly, No Pulsatile Mass, Non Tender, Soft Back: Normal Inspection, No CVA Tenderness, No Vertebral Tenderness Extremity: Normal Capillary Refill, Normal Inspection, Normal Range of Motion (Except right leg), Non Tender, No Calf Tenderness, No Pedal Edema Neurologic/Psychiatric: Alert, Oriented x3, No Motor/Sensory Deficits, Normal Mood/Affect, 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 FIM Transfers Therapy Code Descriptions/Definitions Functional [place] Measure: 0=Not Assessed/NA 4=Minimal Assistance 1=Total Assistance 5=Supervision or Setup 2=Maximal Assistance 6=Modified [place] 3=Moderate Assistance 7=Complete IndependenceSCALE: Activities may be completed with or without assistive devices. 5-Gsrvxzhwgn-hkqhsmb completes the activity by him/herself with no assistance from a helper. 5-Set-up or Clean-up Assistance-helper sets up or cleans up; patient completes activity. [place] assists only prior to or following the activity. 4-Supervision or Touching Assistance-helper provides verbal cues and/or touching/steadying and/or contact guard assistance as patient completes activity. Assistance may be provided throughout the activity or intermittently. 3-Partial/Moderate Assistance-helper does LESS THAN HALF the effort. [place] lifts, holds or supports trunk or limbs, but provides less than half the effort. 2-Substantial/Maximal Assistance-helper does MORE THAN HALF the effort. [place] lifts or holds trunk or limbs and provides more than half the effort. 1-Qocegvzkn-eepndz does ALL the effort. Patient does none of the effort to complete the activity. Or, the assistance of 2 or more helpers is required for the patient to complete the activity. If activity was not attempted, code reason: 7-Patient Refused. 9-Not Applicable-not attempted and the patient did not perform the activity before the current illness, exacerbation or injury. 10-Not Attempted due to Environmental Limitations-(lack of equipment, weather restraints, etc.). 88-Not Attempted due to Medical Conditions or Safety Concerns. Roll Left to Right (QC): 3 Sit to Lying (QC): 5 Sit to Stand (QC): 5 Chair/Yjy-mc-Mpxbx Xfer(QC): 5 Car Transfer (QC): 3 Gait Training Does the Patient Walk?: Yes Distance: 100' Walk 10 feet (QC): 5 Walk 50 ft with 2 Turns(QC): 5 Walk 150 ft (QC): 5 Walking 10ft/uneven surface-QC: 3 Gait Persons Needed: 1 Gait Assistive Device: FWW Wheelchair Training Does the Pt Use a Wheelchair?: No Wheel 50 ft with 2 turns (QC): 88 Wheel 150 ft (QC): 88 Stair Training #of Steps: 0 1 Step (curb) (QC): 88 4 Steps (QC): 88 12 Steps (QC): 88 Balance Picking up an Object (QC): 88 ADL-Treatment Eating (QC): 6 (IND with breakfast.) Shower/Bathe Self (QC): 4 (Pt sit-stand from shower bench to cleanse/dry armand area/buttocks with CGA. Pt required long handled sponge to cleanse/dry R LE to maintain hip precautions.) Upper Body Dressing (QC): 5 (After set up, pt donned UB dressing.) Lower Body Dressing (QC): 4 (Pt threaded BLE into LB dressing using retail link analyst to maintain hip precautions. CGA sit-stand from chair-FWW to hike LB dressing. ) On/Off Footwear (QC): 5 (After set up, pt donned shoes using shoe horn.) Toileting Hygiene (QC): 3 (Pt able to manage hygiene, some assistance with pant hike.) Assessment/Plan Assessment and Plan Assess & Plan/Chief Complaint Assessment: Right hip fracture sustained after repair of original right hip fracture Multiple falls Acute urinary retention Terry catheter in place UTI Hyponatremia Advanced age Poor reserve Anemia post op acute blood loss type Postop constipation Plan: Inpatient rehab protocol Bowel regimen Complete antibiotics Urinary retention management 06/11/2021: Continue bladder regimen Maintain Terry catheter due to retention Monitor labs 06/12/21: Urology consult tomorrow Monitor closely PICC Venofer 06/13/21: Monitor closely Urology PICC for IV iron infusions 06/14/21: Voiding well with catheter out Monitor closely 06/15/2021: Supportive care No DVT 06/16/2021: Continue pain management Fall risk Monitor closely 06/17/21: Continue aggressive treatment 06/18/2021: Continue supportive care Monitor pain (1) Hip fracture, right (2) UTI (urinary tract infection) (3) Urinary retention (4) Terry catheter in place (5) Falls (6) Hyponatremia (7) Constipation FAUSTO DAVILA DO Jun 18, 2021 06:22
[2021-06-18] MEDS: polyethylene glycoL POWDER 17 GM (MIRALAX) PACK PO SCH ×2 (06:28→21:10)
[2021-06-18] MEDS: DOCUSATE SODIUM 100 MG (COLACE) CAP PO SCH ×2 (06:28→21:10)
[2021-06-18] MEDS: SENNA W/DOCUSATE (SENOKOT S) TABLET PO SCH ×2 (06:29→21:11)
[2021-06-18] MEDS: LACTOBACILLUS ACIDOPHILUS (PROBIOTIC) CAPSULE PO SCH ×2 (08:08→20:13)
[2021-06-18] MEDS: ASPIRIN E.C. 81 MG (ECOTRIN) TAB PO SCH ×2 (08:08→20:13)
[2021-06-18] MEDS: SODIUM CHLORIDE 1 GM TABLET PO SCH ×3 (08:08→20:13)
[2021-06-18] MEDS: LIDOCAINE 4% (SALONPAS) PATCH TP SCH (08:08)
[2021-06-18] MEDS: NYSTATIN ORAL SUSP 5 ML UDC PO SCH ×4 (08:08→20:13)
[2021-06-18] MEDS: BETHANECHOL 25 MG (URECHOLINE) TAB PO SCH ×2 (08:08→20:13)
[2021-06-18] MEDS: CATHETER FLUSH 10 ML SYR IV SCH ×2 (08:09→20:11)
[2021-06-18] MEDS: LOPERAMIDE 2 MG (IMODIUM) TABLET PO PRN (08:09)
[2021-06-18] MEDS: fluCOnazole (DIFLUCAN) 100 MG TAB PO SCH (08:09)
[2021-06-18] MEDS: VANCOMYCIN 125 MG CAPSULE PO SCH ×2 (08:09→20:13)
[2021-06-18 08:23] VITALS: BP 116/60
--- NOTE | 2021-06-18 10:47 | Physical Therapy Daily Note ---
PT Daily Note-Current Subjective Pt in bed upon arrival and agrees to tx. Pt states "I'm glad I had time to sleep before you came. I can't do any therapy if I didn't get to sleep at least 10 minutes before." Mental Status Patient Orientation: Person, Confused, Place Transfers SCALE: Activities may be completed with or without assistive devices. 9-Rycntmzpth-xnazncv completes the activity by him/herself with no assistance from a helper. 5-Set-up or Clean-up Assistance-helper sets up or cleans up; patient completes activity. [place] assists only prior to or following the activity. 4-Supervision or Touching Assistance-helper provides verbal cues and/or touc blaise/steadying and/or contact guard assistance as patient completes activity. Assistance may be provided throughout the activity or intermittently. 3-Partial/Moderate Assistance-helper does LESS THAN HALF the effort. [place] lifts, holds or supports trunk or limbs, but provides less than half the effort. 2-Substantial/Maximal Assistance-helper does MORE THAN HALF the effort. [place] lifts or holds trunk or limbs and provides more than half the effort. 3-Fwnqnpkem-piepzw does ALL the effort. Patient does none of the effort to complete the activity. Or, the assistance of 2 or more helpers is required for the patient to complete the activity. If activity was not attempted, code reason: 7-Patient Refused. 9-Not Applicable-not attempted and the patient did not perform the activity before the current illness, exacerbation or injury. 10-Not Attempted due to Environmental Limitations-(lack of equipment, weather restraints, etc.). 88-Not Attempted due to Medical Conditions or Safety Concerns. Sit to Stand (QC): 5 Weight Bearing Right Lower Extremity: Right Weight Bearing/Tolerated Gait Training Does the Patient Walk?: Yes Distance: 100'x4 Walk 10 feet (QC): 5 Walk 50 ft with 2 Turns(QC): 5 Gait Persons Needed: 1 Gait Assistive Device: FWW Pt has extremely slow, antalgic gait and requires frequent rest breaks thro ughout. Exercises Seated Therapy Exercises: Long arc quads Seated Reps: 10 Standing: Hip Abduction, Marching, Sit to Stand Standing Reps: 10 NuStep Minutes: 2 NuStep Workload: 3 Treatments Pt sit to stand from bed and amb on ARU to therapy gym. Pt attempts to use NuStep, with VC to keep hip precautions. Pt unable to keep precautions so NuStep was discontinued. Pt then amb to // bars and completes standing ex. Pt amb back to room and sits to recliner. Pt completes seated ex, pt remains in recliner with all needs met, call light in hand. Assessment Current Status: Good Progress Pt increasing strength, mobility, and endurance. Pt confused and easily loses focus throughout tx. PT Short Term Goals Short Term Goals Time Frame: Jun 25, 2021 Roll Left & Right: 4 Sit to lyin Lying to sitting on side of be: 4 Sit to stand: 4 Chair/hqk-td-oizmu transfer: 4 Toilet transfer: 4 Car transfer: 4 Walk 10 feet: 4 Walk 50 feet with two turns: 4 Walk 150 feet: 4 Walking 10ft on uneven surface: 4 1 step (curb): 3 4 steps: 3 12 steps: 3 Picking up objects: 4 Does pt use a wc or scooter: No PT Halfway Goals Grades 1 Thru 5 Teacher Goals PT Halfway Goals Time Frame: Jul 23, 2021 Roll Left & Right (QC): 5 Sit to Lying (QC): 5 Lying-Sitting on Side/Bed(QC): 5 Sit to Stand (QC): 5 Chair/Ymh-dg-Zgnuq Xfer(QC): 5 Toilet Transfer (QC): 5 Car Transfer (QC): 5 Does the Patient Walk: Yes Walk 10 feet (QC): 5 Walk 50ft with 2 Turns (QC): 5 Walk 150 ft (QC): 5 Walking 10ft on Uneven Surface: 5 1 Step (curb) (QC): 4 4 Steps (QC): 4 12 Steps (QC): 4 Picking up an Object (QC): 5 Does the Pt use WC or Scooter?: No Wheel 50 feet with 2 turns (QC: 88 Wheel 150 feet: 88 PT Plan Treatment/Plan Treatment Plan: Continue Plan of Care Treatment Plan: Bed Mobility, Concurrent Therapy, Education, Functional Activity [place], Functional Strength, Group Therapy, Gait, Safety, Therapeutic Exercise, Transfers Treatment Duration: Aug 24, 2021 Frequency: At least 5 of 7 days/Wk (IRF) Estimated Hrs Per Day: 1.5 hours per day Patient and/or Family Agrees t: Yes Time/GCodes Time In: 954 Time Out: 1023 Total Billed Treatment Time: 29 Total Billed Treatment 1, Gt, EX RIVERA,ESTELA RN TRAINING Jun 18, 2021 10:47
[2021-06-18 20:05] VITALS: BP 118/72
[2021-06-18] MEDS: [UNRECOGNIZED DRUG - REMARK] TP SCH (20:16)
--- NOTE | 2021-06-19 06:00 | PM&R Progress Note ---
Subjective HPI/CC On Admission Date Seen by Provider: Jun 19, 2021 Time Seen by Provider: 06:00 Subjective/Events-last exam 06/19/2021: Patient doing well Multiple somatic issues Pain is well controlled Eating and drinking well 06/18/2021: Patient doing well Taking her own mag citrate tablets out of her purse Loose stools were occurring Check meds and labs 06/17/21: Pt having no new concerns Fluid restriction DC Checked meds and labs Oxycodone will be DC since it causes delirium 06/16/2021: Patient doing better Decreasing Urecholine per urology Flomax was discontinued Post void residual are minimal Voltaren gel will be used 06/15/2021: Patient doing a lot better Right groin pain with leg pain prompted ultrasound no DVT Performed Magui maneuver by therapy yesterday and everything within normal limits Getting second dose of iron infusion Amoxicillin plus Vanco p.o. maintained Increase fluid restriction to 1500 cc 06/14/21: Patient feels good Kpad to neck will be provided for muscle spasm No other pain reported Loose BM Terry out and voiding well Confused last night 06/13/21: Patient doing well Urology consulted Terry in place Urecholine maintained WBC normal IV iron infusion will be started after PICC placed tomorrow 06/12/21: Patient doing well Pain is controlled Urology will be consulted tomorrow Monitor closely Check meds and labs 06/11/2021: Patient doing well Settling in Refusing additional labs Pain is fairly well controlled Her 2 sons visited her today Check meds and labs Review of Systems General: Fatigue, Malaise Musculoskeletal: leg pain Objective Exam Vital Signs Vital Signs Date Time Temp Pulse Resp B/P (MAP) Pulse Ox O2 Delivery O2 Flow Rate FiO2 06/19/21 08:59 Room Air 06/19/21 07:30 37.0 82 16 115/64 (81) 92 Capillary Refill : General Appearance: No Apparent Distress, WD/WN, Anxious, Chronically ill HEENT: PERRL/EOMI, Normal ENT Inspection, Pharynx Normal Neck: Full Range of Motion, Normal Inspection, Non Tender, Supple, Carotid Bruit Respiratory: Chest Non Tender, Lungs Clear, Normal Breath Sounds, No Accessory Muscle Use, No Respiratory Distress Cardiovascular: Regular Rate, Rhythm, No Edema, No Gallop, No JVD, No Murmur, Normal Peripheral Pulses Gastrointestinal: Normal Bowel Sounds, No Organomegaly, No Pulsatile Mass, Non Tender, Soft Back: Normal Inspection, No CVA Tenderness, No Vertebral Tenderness Extremity: Normal Capillary Refill, Normal Inspection, Normal Range of Motion (Except right leg), Non Tender, No Calf Tenderness, No Pedal Edema Neurologic/Psychiatric: Alert, Oriented x3, No Motor/Sensory Deficits, Normal Mood/Affect, 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 FIM Transfers Therapy Code Descriptions/Definitions Functional [place] Measure: 0=Not Assessed/NA 4=Minimal Assistance 1=Total Assistance 5=Supervision or Setup 2=Maximal Assistance 6=Modified [place] 3=Moderate Assistance 7=Complete IndependenceSCALE: Activities may be completed with or without assistive devices. 9-Zqtzkxckik-ffzsddr completes the activity by him/herself with no assistance from a helper. 5-Set-up or Clean-up Assistance-helper sets up or cleans up; patient completes activity. [place] assists only prior to or following the activity. 4-Supervision or Touching Assistance-helper provides verbal cues and/or touching/steadying and/or contact guard assistance as patient completes activity. Assistance may be provided throughout the activity or intermittently. 3-Partial/Moderate Assistance-helper does LESS THAN HALF the effort. [place] lifts, holds or supports trunk or limbs, but provides less than half the effort. 2-Substantial/Maximal Assistance-helper does MORE THAN HALF the effort. [place] lifts or holds trunk or limbs and provides more than half the effort. 5-Dkloudqtf-codmju does ALL the effort. Patient does none of the effort to complete the activity. Or, the assistance of 2 or more helpers is required for the patient to complete the activity. If activity was not attempted, code reason: 7-Patient Refused. 9-Not Applicable-not attempted and the patient did not perform the activity bef ore the current illness, exacerbation or injury. 10-Not Attempted due to Environmental Limitations-(lack of equipment, weather r estraints, etc.). 88-Not Attempted due to Medical Conditions or Safety Concerns. Roll Left to Right (QC): 3 Sit to Lying (QC): 5 Sit to Stand (QC): 5 Chair/Zuq-ly-Osgzz Xfer(QC): 5 Car Transfer (QC): 3 Gait Training Does the Patient Walk?: Yes Distance: 100'x4 Walk 10 feet (QC): 5 Walk 50 ft with 2 Turns(QC): 5 Walk 150 ft (QC): 5 Walking 10ft/uneven surface-QC: 3 Gait Persons Needed: 1 Gait Assistive Device: FWW Wheelchair Training Does the Pt Use a Wheelchair?: No Wheel 50 ft with 2 turns (QC): 88 Wheel 150 ft (QC): 88 Stair Training #of Steps: 0 1 Step (curb) (QC): 88 4 Steps (QC): 88 12 Steps (QC): 88 Balance Picking up an Object (QC): 88 ADL-Treatment Eating (QC): 6 (IND with breakfast.) Shower/Bathe Self (QC): 4 (Pt sit-stand from shower bench to cleanse/dry armand area/buttocks with CGA. Pt required long handled sponge to cleanse/dry R LE to maintain hip precautions.) Upper Body Dressing (QC): 5 (After set up, pt donned UB dressing.) Lower Body Dressing (QC): 4 (Pt threaded BLE into LB dressing using office automation clerk to maintain hip precautions. CGA sit-stand from chair-FWW to hike LB dressing. ) On/Off Footwear (QC): 5 (After set up, pt donned shoes using shoe horn.) Toileting Hygiene (QC): 3 (Pt able to manage hygiene, some assistance with pant hike.) Assessment/Plan Assessment and Plan Assess & Plan/Chief Complaint Assessment: Right hip fracture sustained after repair of original right hip fracture Multiple falls Acute urinary retention Terry catheter in place UTI Hyponatremia Advanced age Poor reserve Anemia post op acute blood loss type Postop constipation Plan: Inpatient rehab protocol Bowel regimen Complete antibiotics Urinary retention management 06/11/2021: Continue bladder regimen Maintain Trery catheter due to retention Monitor labs 06/12/21: Urology consult tomorrow Monitor closely PICC Venofer 06/13/21: Monitor closely Urology PICC for IV iron infusions 06/14/21: Voiding well with catheter out Monitor closely 06/15/2021: Supportive care No DVT 06/16/2021: Continue pain management Fall risk Monitor closely 06/17/21: Continue aggressive treatment 06/18/2021: Continue supportive care Monitor pain 06/19/2021: Continue iron infusions Check labs in the morning (1) Hip fracture, right (2) UTI (urinary tract infection) (3) Urinary retention (4) Terry catheter in place (5) Falls (6) Hyponatremia (7) Constipation FAUSTO DAVILA DO Jun 19, 2021 06:00
[2021-06-19] MEDS: CYANOCOBALAMIN 1,000 MCG (VITAMIN B-12) TABLET PO SCH (06:19)
[2021-06-19 07:30] VITALS: BP 115/64
[2021-06-19] MEDS: NYSTATIN ORAL SUSP 5 ML UDC PO SCH ×4 (08:16→20:59)
[2021-06-19] MEDS: LACTOBACILLUS ACIDOPHILUS (PROBIOTIC) CAPSULE PO SCH ×2 (08:16→20:59)
[2021-06-19] MEDS: CATHETER FLUSH 10 ML SYR IV SCH ×2 (08:16→21:05)
[2021-06-19] MEDS: IRON SUCROSE 200 MG/10 ML (VENOFER) VIAL IV SCH (08:16)
[2021-06-19] MEDS: fluCOnazole (DIFLUCAN) 100 MG TAB PO SCH (08:16)
[2021-06-19] MEDS: ASPIRIN E.C. 81 MG (ECOTRIN) TAB PO SCH ×2 (08:16→21:00)
[2021-06-19] MEDS: BETHANECHOL 25 MG (URECHOLINE) TAB PO SCH ×2 (08:16→20:59)
[2021-06-19] MEDS: VANCOMYCIN 125 MG CAPSULE PO SCH ×2 (08:16→20:59)
[2021-06-19] MEDS: SODIUM CHLORIDE 1 GM TABLET PO SCH ×3 (08:20→21:15)
[2021-06-19] MEDS: LIDOCAINE 4% (SALONPAS) PATCH TP SCH (08:20)
[2021-06-19] MEDS: DOCUSATE SODIUM 100 MG (COLACE) CAP PO SCH ×2 (08:24→21:15)
[2021-06-19] MEDS: SENNA W/DOCUSATE (SENOKOT S) TABLET PO SCH ×2 (08:24→21:15)
[2021-06-19] MEDS: polyethylene glycoL POWDER 17 GM (MIRALAX) PACK PO SCH ×2 (08:24→21:15)
[2021-06-19 19:17] VITALS: BP 158/67
[2021-06-19] MEDS: [UNRECOGNIZED DRUG - REMARK] TP SCH (21:16)
[2021-06-20] MEDS: CYANOCOBALAMIN 1,000 MCG (VITAMIN B-12) TABLET PO SCH (06:47)
[2021-06-20 07:29] VITALS: BP 157/70
[2021-06-20] MEDS: SENNA W/DOCUSATE (SENOKOT S) TABLET PO SCH ×2 (08:02→21:45)
[2021-06-20] MEDS: SODIUM CHLORIDE 1 GM TABLET PO SCH ×3 (08:02→21:54)
[2021-06-20] MEDS: DOCUSATE SODIUM 100 MG (COLACE) CAP PO SCH ×2 (08:02→21:45)
[2021-06-20] MEDS: polyethylene glycoL POWDER 17 GM (MIRALAX) PACK PO SCH ×2 (08:02→21:45)
[2021-06-20] MEDS: LIDOCAINE 4% (SALONPAS) PATCH TP SCH (08:13)
[2021-06-20] MEDS: LACTOBACILLUS ACIDOPHILUS (PROBIOTIC) CAPSULE PO SCH ×2 (08:13→21:54)
[2021-06-20] MEDS: ASPIRIN E.C. 81 MG (ECOTRIN) TAB PO SCH ×2 (08:13→21:53)
[2021-06-20] MEDS: NYSTATIN ORAL SUSP 5 ML UDC PO SCH ×4 (08:13→21:55)
[2021-06-20] MEDS: BETHANECHOL 25 MG (URECHOLINE) TAB PO SCH ×2 (08:13→21:53)
[2021-06-20] MEDS: CATHETER FLUSH 10 ML SYR IV SCH ×2 (08:13→21:54)
[2021-06-20] MEDS: VANCOMYCIN 125 MG CAPSULE PO SCH ×2 (08:13→21:53)
--- NOTE | 2021-06-20 09:33 | Progress Note - Urology ---
Progress Note-Urology Progress Notes/Assess & Plan Progress/Assessment & Plan CONTINUES WELL ON WEANING. Final Diagnosis RETENTION JOSE BOYD MD Jun 20, 2021 09:33
--- NOTE | 2021-06-20 10:32 | PM&R Progress Note ---
Subjective HPI/CC On Admission Date Seen by Provider: Jun 20, 2021 Time Seen by Provider: 10:30 Subjective/Events-last exam 06/20/2021: Pt refusing labs and most medications Wants to go home tomorrow Therapy will be consulted and arranged for what her needs are at DC Pt noncompliant with salt tablets too Refused lab check 06/19/2021: Patient doing well Multiple somatic issues Pain is well controlled Eating and drinking well 06/18/2021: Patient doing well Taking her own mag citrate tablets out of her purse Loose stools were occurring Check meds and labs 06/17/21: Pt having no new concerns Fluid restriction DC Checked meds and labs Oxycodone will be DC since it causes delirium 06/16/2021: Patient doing better Decreasing Urecholine per urology Flomax was discontinued Post void residual are minimal Voltaren gel will be used 06/15/2021: Patient doing a lot better Right groin pain with leg pain prompted ultrasound no DVT Performed Magui maneuver by therapy yesterday and everything within normal limits Getting second dose of iron infusion Amoxicillin plus Vanco p.o. maintained Increase fluid restriction to 1500 cc 06/14/21: Patient feels good Kpad to neck will be provided for muscle spasm No other pain reported Loose BM Terry out and voiding well Confused last night 06/13/21: Patient doing well Urology consulted Terry in place Urecholine maintained WBC normal IV iron infusion will be started after PICC placed tomorrow 06/12/21: Patient doing well Pain is controlled Urology will be consulted tomorrow Monitor closely Check meds and labs 06/11/2021: Patient doing well Settling in Refusing additional labs Pain is fairly well controlled Her 2 sons visited her today Check meds and labs Review of Systems General: Fatigue, Malaise Neurological: Weakness, Incoordination Objective Exam Vital Signs Vital Signs Date Time Temp Pulse Resp B/P (MAP) Pulse Ox O2 Delivery O2 Flow Rate FiO2 06/20/21 20:30 Room Air 06/20/21 19:49 37.1 93 16 122/71 (88) 98 Capillary Refill : General Appearance: No Apparent Distress, WD/WN, Anxious, Chronically ill HEENT: PERRL/EOMI, Normal ENT Inspection, Pharynx Normal Neck: Full Range of Motion, Normal Inspection, Non Tender, Supple, Carotid Bruit Respiratory: Chest Non Tender, Lungs Clear, Normal Breath Sounds, No Accessory Muscle Use, No Respiratory Distress Cardiovascular: Regular Rate, Rhythm, No Edema, No Gallop, No JVD, No Murmur, Normal Peripheral Pulses Gastrointestinal: Normal Bowel Sounds, No Organomegaly, No Pulsatile Mass, Non Tender, Soft Back: Normal Inspection, No CVA Tenderness, No Vertebral Tenderness Extremity: Normal Capillary Refill, Normal Inspection, Normal Range of Motion ( Except right leg), Non Tender, No Calf Tenderness, No Pedal Edema Neurologic/Psychiatric: Alert, Oriented x3, No Motor/Sensory Deficits, Normal Mood/Affect, crown blocker II-XII Norm as Tested, Abnormal Gait, Motor Weakness (Right leg) Skin: Normal Color, Warm/Dry Lymphatic: No Adenopathy Results/Procedures Lab Patient resulted labs reviewed. FIM Transfers Therapy Code Descriptions/Definitions Functional [place] Measure: 0=Not Assessed/NA 4=Minimal Assistance 1=Total Assistance 5=Supervision or Setup 2=Maximal Assistance 6=Modified [place] 3=Moderate Assistance 7=Complete IndependenceSCALE: Activities may be completed with or without assistive devices. 2-Ttzzkexvym-cagpmrx completes the activity by him/herself with no assistance from a helper. 5-Set-up or Clean-up Assistance-helper sets up or cleans up; patient completes activity. [place] assists only prior to or following the activity. 4-Supervision or Touching Assistance-helper provides verbal cues and/or touching/steadying and/or contact guard assistance as patient completes activi ty. Assistance may be provided throughout the activity or intermittently. 3-Partial/Moderate Assistance-helper does LESS THAN HALF the effort. [place] lifts, holds or supports trunk or limbs, but provides less than half the effort. 2-Substantial/Maximal Assistance-helper does MORE THAN HALF the effort. [place] lifts or holds trunk or limbs and provides more than half the effort. 3-Fkkfgwosw-qglnuz does ALL the effort. Patient does none of the effort to complete the activity. Or, the assistance of 2 or more helpers is required for the patient to complete the activity. If activity was not attempted, code reason: 7-Patient Refused. 9-Not Applicable-not attempted and the patient did not perform the activity before the current illness, exacerbation or injury. 10-Not Attempted due to Environmental Limitations-(lack of equipment, weather restraints, etc.). 88-Not Attempted due to Medical Conditions or Safety Concerns. Roll Left to Right (QC): 3 Sit to Lying (QC): 5 Sit to Stand (QC): 5 Chair/Jvo-qo-Ocwig Xfer(QC): 5 Car Transfer (QC): 3 Gait Training Does the Patient Walk?: Yes Distance: 100'x4 Walk 10 feet (QC): 5 Walk 50 ft with 2 Turns(QC): 5 Walk 150 ft (QC): 5 Walking 10ft/uneven surface-QC: 3 Gait Persons Needed: 1 Gait Assistive Device: FWW Wheelchair Training Does the Pt Use a Wheelchair?: No Wheel 50 ft with 2 turns (QC): 88 Wheel 150 ft (QC): 88 Stair Training #of Steps: 0 1 Step (curb) (QC): 88 4 Steps (QC): 88 12 Steps (QC): 88 Balance Picking up an Object (QC): 88 ADL-Treatment Eating (QC): 6 (IND with breakfast.) Shower/Bathe Self (QC): 4 (Pt sit-stand from shower bench to cleanse/dry armand area/buttocks with CGA. Pt required long handled sponge to cleanse/dry R LE to maintain hip precautions.) Upper Body Dressing (QC): 5 (After set up, pt donned UB dressing.) Lower Body Dressing (QC): 4 (Pt threaded BLE into LB dressing using quality assurance supervisor final to maintain hip precautions. CGA sit-stand from chair-FWW to hike LB dressing. ) On/Off Footwear (QC): 5 (After set up, pt donned shoes using shoe horn.) Toileting Hygiene (QC): 3 (Pt able to manage hygiene, some assistance with pant hike.) Assessment/Plan Assessment and Plan Assess & Plan/Chief Complaint 06/20/2021: Assessment: Right hip fracture sustained after repair of original right hip fracture Multiple falls Acute urinary retention Terry catheter in place UTI Hyponatremia Advanced age Poor reserve Anemia post op acute blood loss type Postop constipation Plan: Inpatient rehab protocol Bowel regimen Complete antibiotics Urinary retention management 06/11/2021: Continue bladder regimen Maintain Terry catheter due to retention Monitor labs 06/12/21: Urology consult tomorrow Monitor closely PICC Venofer 06/13/21: Monitor closely Urology PICC for IV iron infusions 06/14/21: Voiding well with catheter out Monitor closely 06/15/2021: Supportive care No DVT 06/16/2021: Continue pain management Fall risk Monitor closely 06/17/21: Continue aggressive treatment 06/18/2021: Continue supportive care Monitor pain 06/19/2021: Continue iron infusions Check labs in the morning 06/20/2021: Refusing meds Refusing labs Refusing therapy Discharge tomorrow (1) Hip fracture, right (2) UTI (urinary tract infection) (3) Urinary retention (4) Terry catheter in place (5) Falls (6) Hyponatremia (7) Constipation FAUSTO DAVILA DO Jun 20, 2021 10:32
--- NOTE | 2021-06-20 11:13 | Speech Therapy Daily Note ---
Speech Daily Progress Note Subjective Date Seen by Provider: Jun 20, 2021 Time Seen by Provider: 00:30 Patient is excited to return to her home which is scheduled for tomorrow. Objective Patient completed memory tasks related to her safety awareness upon her return home at 80% with min to mod cues. Assessment Assessment Current Status: Good Progress Treatment Plan Discontinue ST Speech Short Term Goals Short Term Goals Short Term Goals 1.The pt will complete daily memory tasks at 80% accy with min cues. 2. The pt will complete daily safety awareness tasks with 80% accy. 3. The pt will complete daily problem solving task with 80% accy. Speech Intermediate Goals Intermediate Goals The pt will improve cognitive-communication abilities for functional daily living. Speech-Plan Patient/Family Goals Patient/Family Goals: Patient is scheduled for discharge tomorrow. She will return to her home where she lives with her son. Treatment Plan Speech Therapy Treatment Plan: Discontinue ST Treatment Duration: Jun 24, 2021 Frequency: 5 times per week Estimated Hrs Per Day: .5 hour per day Rehab Potential: Good Barriers to Learning: Patient's physical and cognitive deficits Pt/Family Agrees to Plan: Yes Safety Risks/Education Teaching Recipient: Patient Teaching Methods: Demonstration, Discussion Response to Teaching: Verbalize Understanding, Return Demonstration Education Topics Provided: Continued safety upon her return home Time Speech Therapy Time In: 10:30 Speech Therapy Time Out: 11:00 Total Billed Time: 30 Billed Treatment Time 1, SLTS No QUALITY CODES: EXPRESSION OF IDEAS/WANTS: 4 UNDERSTANDING VERBAL CONTENT: 4 BRIEF INTERVIEW MENTAL STATUS: YES REPETITION OF 3 WORDS: 3 TEMPORAL ORIENTATION: YEAR: CORRECT, MONTH: CORRECT, DAY: CORRECT RECALL: SOCK: YES, COLOR: YES WITH CUE, BED: YES WITH CUE MEMORY/RECALL ABILITY: SEASON, LOCATION OF ROOM, THAT SHE IS IN THE [facility] Jun 20, 2021 11:13
--- NOTE | 2021-06-20 12:12 | Physical Therapy Daily Note ---
PT Daily Note-Current Subjective Pt in bathroom upon arrival with OT and agrees to co-treat. Co-treat d/t pt poor endurance, weakness, low motivation, and safety. Mental Status Patient Orientation: Person, Confused, Place Transfers SCALE: Activities may be completed with or without assistive devices. 0-Jfmevetgpt-slgmpiq completes the activity by him/herself with no assistance from a helper. 5-Set-up or Clean-up Assistance-helper sets up or cleans up; patient completes activity. [place] assists only prior to or following the activity. 4-Supervision or Touching Assistance-helper provides verbal cues and/or touching/steadying and/or contact guard assistance as patient completes activity. Assistance may be provided throughout the activity or intermittently. 3-Partial/Moderate Assistance-helper does LESS THAN HALF the effort. [place] lifts, holds or supports trunk or limbs, but provides less than half the effort. 2-Substantial/Maximal Assistance-helper does MORE THAN HALF the effort. [place] lifts or holds trunk or limbs and provides more than half the effort. 5-Hgiqqpsvp-oboubd does ALL the effort. Patient does none of the effort to complete the activity. Or, the assistance of 2 or more helpers is required for the patient to complete the activity. If activity was not attempted, code reason: 7-Patient Refused. 9-Not Applicable-not attempted and the patient did not perform the activity before the current illness, exacerbation or injury. 10-Not Attempted due to Environmental Limitations-(lack of equipment, weather restraints, etc.). 88-Not Attempted due to Medical Conditions or Safety Concerns. Roll Left & Right (QC): 4 Sit to Lying (QC): 4 Lying to Sitting/Side of Bed(Q: 4 Sit to Stand (QC): 4 Chair/Hir-ny-Nwgtl Xfer(QC): 4 Toilet Transfer (QC): 4 Car Transfer (QC): 4 VC for precautions, SBA Weight Bearing Right Lower Extremity: Right Weight Bearing/Tolerated Gait Training Does the Patient Walk?: Yes Distance: 150', 100' Walk 10 feet (QC): 4 Walk 50 ft with 2 Turns(QC): 4 Walk 150 ft (QC): 4 Walking 10ft/uneven surface-QC: 4 Gait Assistive Device: FWW slow, shuffling gait and requires frequent rest breaks Stair Training Stair Training: Handrails/: 2 handrails #of Steps: 8 1 Step (curb) (QC): 4 4 Steps (QC): 4 12 Steps (QC): 88 Stairs: Pattern: Step to VC for sequencing Balance Picking up an Object (QC): 4 Special Test Comments CGA with use of air conditioning equipment mechanic Treatments OT focused on bathing, dressing, and brushing hair/teeth. PT focused on mobility, transfers, and balance. Pt completes shower and dons clothing, amb to car and completes car transfer SBA. Pt then amb to therapy gym to complete stair training, amb on uneven surface, and pick a cone up from the floor with use of a air conditioning equipment mechanic. Pt then amb 150' back to room and completes brushing hair/teeth. Pt transfers to bed to complete bed mobility. Pt transfers to and was left with all needs met, call light in hand. Assessment Current Status: Good Progress Pt loses focus often and is poorly motivated to improve functional mobility PT Short Term Goals Short Term Goals Time Frame: Jun 25, 2021 Roll Left & Right: 4 Sit to lyin Lying to sitting on side of be: 4 Sit to stand: 4 Chair/dyz-ss-ifqrc transfer: 4 Toilet transfer: 4 Car transfer: 4 Walk 10 feet: 4 Walk 50 feet with two turns: 4 Walk 150 feet: 4 Walking 10ft on uneven surface: 4 1 step (curb): 3 4 steps: 3 12 steps: 3 Picking up objects: 4 Does pt use a wc or scooter: No PT Mcfp Goals Weigh Tank Operator Goals PT Mcfp Goals Time Frame: Jul 23, 2021 Roll Left & Right (QC): 5 Sit to Lying (QC): 5 Lying-Sitting on Side/Bed(QC): 5 Sit to Stand (QC): 5 Chair/Zeg-an-Wggte Xfer(QC): 5 Toilet Transfer (QC): 5 Car Transfer (QC): 5 Does the Patient Walk: Yes Walk 10 feet (QC): 5 Walk 50ft with 2 Turns (QC): 5 Walk 150 ft (QC): 5 Walking 10ft on Uneven Surface: 5 1 Step (curb) (QC): 4 4 Steps (QC): 4 12 Steps (QC): 4 Picking up an Object (QC): 5 Does the Pt use WC or Scooter?: No Wheel 50 feet with 2 turns (QC: 88 Wheel 150 feet: 88 PT Plan Treatment/Plan Treatment Plan: Continue Plan of Care Treatment Plan: Bed Mobility, Concurrent Therapy, Education, Functional Activity Etienne, Functional Strength, Group Therapy, Gait, Safety, Therapeutic Exercise, Transfers Treatment Duration: Aug 24, 2021 Frequency: At least 5 of 7 days/Wk (IRF) Estimated Hrs Per Day: 1.5 hours per day Patient and/or Family Agrees t: Yes Time/GCodes Time In: 1115 Time Out: 1215 Total Billed Treatment Time: 60 Total Billed Treatment 1, FA x3, GT ESTELA RIVERA THAI MASSEUR Jun 20, 2021 12:12
--- NOTE | 2021-06-20 12:15 | Occupational Ther Daily Note ---
OT Current Status-Daily Note Subjective Pt alert, laying in bed with HOB raised when OT entered. Pt agreed to therapy. No c/o pain reported. Mental Status/Objective Patient Orientation: Person, Place, Time, Situation ADL-Treatment Co-treat with PT ([phone]) due to poor mobility, increase fall risk, and poor safety awareness. Pt required extra encouragement to complete shower. Pt stransferred to EOB indepedently. Pt sit-stand from EOB to FWW with supervision. Pt ambulated to bathroom using FWW and transferred to toilet. Pt sit-stand from toilet using grab bars to complete toilet hygiene with supervision for safety. Pt ambulated to shower using FWW and transferred to shower bench. Pt doffed UB dressing independently. Pt doffed LB dressing/briefs independently while seated in w/c. Pt cleansed/dried UB, LB using long handled spong, chest, abdomen, armand area, and buttocks. Pt required vc to maintain hip precautions and finish shower effectively. Pt transferred from shower bench to w/c. After set up, pt donned UB dressing. After set up, pt threaded BLE through briefs/LB dressing using grout worker to maintain hip precautions. Pt sit-stand from w/c to FWW to hike briefs/LB dressing. Pt completed oral hygiene of cleansing dentures and putting them independently while seated in w/c. After session, pt sitting in w/c. Call light in reach and all needs met. Therapy Code Descriptions/Definitions Functional [place] Measure: 0=Not Assessed/NA 4=Minimal Assistance 1=Total Assistance 5=Supervision or Setup 2=Maximal Assistance 6=Modified [place] 3=Moderate Assistance 7=Complete IndependenceSCALE: Activities may be completed with or without assistive devices. 2-Axrczyzuyr-jkinmgf completes the activity by him/herself with no assistance from a helper. 5-Set-up or Clean-up Assistance-helper sets up or cleans up; patient completes activity. [place] assists only prior to or following the activity. 4-Supervision or Touching Assistance-helper provides verbal cues and/or touching/steadying and/or contact guard assistance as patient completes activity. Assistance may be provided throughout the activity or intermittently. 3-Partial/Moderate Assistance-helper does LESS THAN HALF the effort. [place] lifts, holds or supports trunk or limbs, but provides less than half the effort. 2-Substantial/Maximal Assistance-helper does MORE THAN HALF the effort. [place] lifts or holds trunk or limbs and provides more than half the effort. 5-Djgujqeug-evfddj does ALL the effort. Patient does none of the effort to complete the activity. Or, the assistance of 2 or more helpers is required for the patient to complete the activity. If activity was not attempted, code reason: 7-Patient Refused. 9-Not Applicable-not attempted and the patient did not perform the activity before the current illness, exacerbation or injury. 10-Not Attempted due to Environmental Limitations-(lack of equipment, weather restraints, etc.). 88-Not Attempted due to Medical Conditions or Safety Concerns. Eating (QC): 6 (Per clinical judgement) Oral Hygiene (QC): 6 (Seated in w/c at sink.) Shower/Bathe Self (QC): 6 Upper Body Dressing (QC): 5 Lower Body Dressing (QC): 5 On/Off Footwear: 6 (pt don/doff shoes using shoe horn and grout worker to maintain hip precautions.) Toileting Hygiene (QC): 4 (Supervision for safety) Toilet Transfer (QC): 6 Other Treatment Pt ambulated throughout [facility] using FWW with supervision to improve functional/safe mobility in home. See PT notes on functional mobility on uneven surfaces, picking up item with reachers, and stairs. Pt ambulated from gym to room using FWW. Pt required resting break due to decreased activity tolerance. Once in room, pt participated in oral hygiene task. Education OT Patient Education: Correct positioning, Energy conservation, Purpose of tx/functional activities, Safety issues Teaching Recipient: Patient Teaching Methods: Demonstration, Discussion Response to Teaching: Verbalize Understanding, Return Demonstration OT Short Term Goals Short Term Goals Time Frame: Jun 22, 2021 Toileting hygiene: 4 Shower/bathe self: 4 Lower body dressin Putting on/taking off footwear: 4 OT Title Clerk Goals Title Clerk Goals Time Frame: Jul 01, 2021 Eating (QC): 6 (Met, per clinical judgement) Oral Hygiene (QC): 6 (Met, while seated in w/c at sink.) Toileting Hygiene (QC): 6 (Not met, supervision for safety.) Shower/Bathe Self (QC): 6 (Met) Upper Body Dressing (QC): 6 (Not met, after set up.) Lower Body Dressing (QC): 6 (Not met, after set up.) On/Off Footwear (QC): 6 (Met) Additional Goals: 1-Demonstrate ADL Tasks, 2-Verbalize Understanding, 3- ImproveStrength/[place] 1=Demonstrate adherence to instructed precautions during ADL tasks. 2=Patient will verbalize/demonstrate understanding of assistive devices/modifications for ADL. 3=Patient will improve strength/tolerance for activity to enable patient to perform ADL's. OT Education/Plan Problem List/Assessment Assessment: Decreased Activ Tolerance, Decreased Safety Aware, Impaired Self- Care Skills Discharge Recommendations Plan/Recommendations: Continue POC Treatment Plan/Plan of Care Patient would benefit from OT for education, treatment and training to promote independence in ADL's, mobility, safety and/or upper extremity function for ADL's. Plan of Care: ADL Retraining, Functional Mobility, Group Exercise/Act as Ind, UE Funct Exercise/Act Treatment Duration: Jul 01, 2021 Frequency: At least 5 of 7 days/Wk (IRF) Estimated Hrs Per Day: 1.5 hours per day Agreement: Yes Rehab Potential: Good Time/GCodes Start Time: 11:00 Stop Time: 12:15 Total Time Billed (hr/min): 75 Billed Treatment Time 1 visit - ADL 3 (47 mins) FA 2 (28 mins) Co treat with PT ([id number]) individual ([id number]) CANDELARIA PINTO Jun 20, 2021 12:15
--- NOTE | 2021-06-20 14:22 | Physical Therapy Daily Note ---
PT Daily Note-Current Subjective Pt in bed upon arrival and agrees to tx. Pt states pain in R knee but doesn't rate out of 10. Mental Status Patient Orientation: Person, Confused, Place Transfers SCALE: Activities may be completed with or without assistive devices. 6-Rtilsttbll-xonfyjv completes the activity by him/herself with no assistance from a helper. 5-Set-up or Clean-up Assistance-helper sets up or cleans up; patient completes activity. [place] assists only prior to or following the activity. 4-Supervision or Touching Assistance-helper provides verbal cues and/or touching/steadying and/or contact guard assistance as patient completes activity. Assistance may be provided throughout the activity or intermittently. 3-Partial/Moderate Assistance-helper does LESS THAN HALF the effort. [place] lifts, holds or supports trunk or limbs, but provides less than half the effort. 2-Substantial/Maximal Assistance-helper does MORE THAN HALF the effort. [place] lifts or holds trunk or limbs and provides more than half the effort. 8-Vmevqsomu-yoqney does ALL the effort. Patient does none of the effort to complete the activity. Or, the assistance of 2 or more helpers is required for the patient to complete the activity. If activity was not attempted, code reason: 7-Patient Refused. 9-Not Applicable-not attempted and the patient did not perform the activity before the current illness, exacerbation or injury. 10-Not Attempted due to Environmental Limitations-(lack of equipment, weather restraints, etc.). 88-Not Attempted due to Medical Conditions or Safety Concerns. Sit to Stand (QC): 5 Weight Bearing Right Lower Extremity: Right Weight Bearing/Tolerated Gait Training Does the Patient Walk?: Yes Distance: 100' x2 Walk 10 feet (QC): 5 Walk 50 ft with 2 Turns(QC): 5 Walk 150 ft (QC): 5 Gait Assistive Device: FWW Pt has slight antalgic gait d/t pain in R knee. Treatments Pt supine to sit and sit to stand SBA and amb a total of 200' on ARU w/ FWW. Once returning to room, pt request to use bathroom. Pt able to doff/don pants and clean self SBA. Pt returns to bed and is left with all needs met, call light in hand . Assessment Current Status: Good Progress Pt increasing strength, endurance, and mobility PT Short Term Goals Short Term Goals Time Frame: Jun 25, 2021 Roll Left & Right: 4 Sit to lyin Lying to sitting on side of be: 4 Sit to stand: 4 Chair/dwb-nb-oqrov transfer: 4 Toilet transfer: 4 Car transfer: 4 Walk 10 feet: 4 Walk 50 feet with two turns: 4 Walk 150 feet: 4 Walking 10ft on uneven surface: 4 1 step (curb): 3 4 steps: 3 12 steps: 3 Picking up objects: 4 Does pt use a wc or scooter: No PT Rn Baby Goals Assisted Goals PT Assisted Goals Time Frame: Jul 23, 2021 Roll Left & Right (QC): 5 Sit to Lying (QC): 5 Lying-Sitting on Side/Bed(QC): 5 Sit to Stand (QC): 5 Chair/Ywv-ax-Gxsvi Xfer(QC): 5 Toilet Transfer (QC): 5 Car Transfer (QC): 5 Does the Patient Walk: Yes Walk 10 feet (QC): 5 Walk 50ft with 2 Turns (QC): 5 Walk 150 ft (QC): 5 Walking 10ft on Uneven Surface: 5 1 Step (curb) (QC): 4 4 Steps (QC): 4 12 Steps (QC): 4 Picking up an Object (QC): 5 Does the Pt use WC or Scooter?: No Wheel 50 feet with 2 turns (QC: 88 Wheel 150 feet: 88 PT Plan Treatment/Plan Treatment Plan: Continue Plan of Care Treatment Plan: Bed Mobility, Concurrent Therapy, Education, Functional Activity Etienne, Functional Strength, Group Therapy, Gait, Safety, Therapeutic Exercise, Transfers Treatment Duration: Aug 24, 2021 Frequency: At least 5 of 7 days/Wk (IRF) Estimated Hrs Per Day: 1.5 hours per day Patient and/or Family Agrees t: Yes Time/GCodes Time In: 1400 Time Out: 1415 Total Billed Treatment Time: 15 Total Billed Treatment 1WILSON SYDNEY PHYSICIST [employer] Jun 20, 2021 14:22
[2021-06-20 19:49] VITALS: BP 122/71
[2021-06-20] MEDS: [UNRECOGNIZED DRUG - REMARK] TP SCH (21:45)
[2021-06-21] MEDS ORDERED: TRM50T PO (05:21)
[2021-06-21] MEDS ORDERED: BETH50TA2 PO (05:21)
[2021-06-21] MEDS ORDERED: NF-NACL1GT PO (05:21)
[2021-06-21] MEDS ORDERED: DICL100G13 TOP (05:21)
--- NOTE | 2021-06-21 05:23 | D/C HH Face to Face Order ---
D/C Face to Face Orders Reconcile Patient Problems Problems Reviewed?: Yes Instructions for [facility] home [facility] Patient Instructions/FollowUp: Establish care with PCP Physician to follow Patient: Rima Discharge Diet for Home: No Restrictions Patient Problems: Hip fracture Hyponatremia Patient Data-Allergies,Ht & Wt Patient Allergies: Coded Allergies: No Known Drug Allergies (Unverified , 06/10/21) Home Health Need/Face to Face Date of Face to Face: Jun 21, 2021 Clinical Findings: Generalized weakness and fatigue, Instability, Muscle weakness, Pain with ambulation I have seen Pt [id number]: Yes Discharged To: Home Diagnosis/Conditions: Hip fracture Patient is Homebound due to: Mario fall risk due to instabilty, Muscle weakness, Pain w/ambulation Homebound Status Due to the above stated illness, injury or surgical procedure (medical condition or diagnosis) and associated clinical findings, the patient is homebound because of his/her inability to leave home except with aid of a supportive device and/or person AND leaving the home requires a considerable and taxing effort or is medically contraindicated. Pt req the following assistanc: Walker Home Health Nursing Orders Home Health Services Order: Nursing Services, Projection Camera Operator-Evaluate & Treat, Physical Therapy-Evaluate & Treat, Other (Bath aide) Home Health Infusion Therapy Line Start Date: Jun 13, 2021 Certify Stmt I certify that this patient is under my care and that I, a nurse practitioner or a physician; a pharmacy sales assistant working with me, had a face to face encounter that - meets the physician face to face encounter requirements with this patient as dated. FAUSTO DAVILA DO Jun 21, 2021 05:23
--- NOTE | 2021-06-21 05:23 | Discharge Summary ---
Diagnosis/Chief Complaint Date of Admission Jun 10, 2021 at 17:51 Date of Discharge Discharge Date: Jun 21, 2021 Discharge Diagnosis 06/20/2021: Assessment: Right hip fracture sustained after repair of original right hip fracture Multiple falls Acute urinary retention Terry catheter in place UTI Hyponatremia Advanced age Poor reserve Anemia post op acute blood loss type Postop constipation Plan: Inpatient rehab protocol Bowel regimen Complete antibiotics Urinary retention management 06/11/2021: Continue bladder regimen Maintain Terry catheter due to retention Monitor labs 06/12/21: Urology consult tomorrow Monitor closely PICC Venofer 06/13/21: Monitor closely Urology PICC for IV iron infusions 06/14/21: Voiding well with catheter out Monitor closely 06/15/2021: Supportive care No DVT 06/16/2021: Continue pain management Fall risk Monitor closely 06/17/21: Continue aggressive treatment 06/18/2021: Continue supportive care Monitor pain 06/19/2021: Continue iron infusions Check labs in the morning 06/20/2021: Refusing meds Refusing labs Refusing therapy Discharge tomorrow (1) Hip fracture, right (2) UTI (urinary tract infection) (3) Urinary retention (4) Terry catheter in place (5) Falls (6) Hyponatremia (7) Constipation Discharge Summary Discharge Physical Examination Allergies: Coded Allergies: No Known Drug Allergies (Unverified , 06/10/21) Vitals & I&Os Vital Signs Date Time Temp Pulse Resp B/P (MAP) Pulse Ox O2 Delivery O2 Flow Rate FiO2 06/21/21 09:56 36.8 101 20 136/63 96 Room Air General Appearance: Alert, Oriented X3, Cooperative Respiratory: Clear to Auscultation Cardiovascular: Regular Rate Psych/Mental Status: Mental Status NL Hospital Course Was the Problem List Reviewed?: Yes Hospital course: Patient had an uneventful hospital course after transferring from [facility] after right hip fracture x2. Patient did have evidence of acute blood loss anemia with iron deficiency so she did complete iron infusions while hospitalized. No other lab abnormality except for chronic hyponatremia noted. Patient's pain was well controlled on Ultram and Tylenol. No other significant problems occurred other than urinary retention resolved with medication initiated by urology and ultimately finished UTI treatment and she was voiding well at time of discharge. She will establish with PCP and will be monitored closely in the meantime. Labs (last 24 hrs) Laboratory Tests 06/11/21 05:26: Sodium Level 128L, Potassium Level 4.4, Chloride Level 96L, Carbon Dioxide Level 20L, Anion Gap 12, Blood Urea Nitrogen 7, Creatinine 0.49L, Estimat Glomerular Filtration Rate 120, BUN/Creatinine Ratio 14, Glucose Level 94, Calcium Level 8.1L, Corrected Calcium 9.3, Total Bilirubin 0.5, Aspartate Amino Transf (AST/ SGOT) 52H, Alanine Aminotransferase (ALT/SGPT) 28, Alkaline Phosphatase 72, Total Protein 5.3L, Albumin 2.5L 06/11/21 08:00: White Blood Count 15.8H, Red Blood Count 3.17L, Hemoglobin 9.6L, Hematocrit 29L, Mean Corpuscular Volume 91, Mean Corpuscular Hemoglobin 30, Mean Corpuscular Hemoglobin Concent 33, Red Cell Distribution Width 13.1, Platelet Count 357, Mean Platelet Volume 9.0, Immature Granulocyte % (Auto) 1, Neutrophils (%) (Auto) 83H, Lymphocytes (%) (Auto) 9L, Monocytes (%) (Auto) 7, Eosinophils (%) (Auto) 1, Basophils (%) (Auto) 0, Neutrophils # (Auto) 13.1H, Lymphocytes # (Auto) 1.3, Monocytes # (Auto) 1.1H, Eosinophils # (Auto) 0.1, Basophils # (Auto) 0.1, Immature Granulocyte # (Auto) 0.1, Neutrophils % (Manual) 83, Lymphocytes % (Manual) 8, Monocytes % (Manual) 7, Eosinophils % (Manual) 2, Basophils % (Manual) 0, Band Neutrophils 0, Blood Morphology Comment NORMAL, Iron Level 17L, Procalcitonin 0.07 06/13/21 06:24: Sodium Level 130L, Potassium Level 3.7, Chloride Level 95L, Carbon Dioxide Level 26, Anion Gap 9, Blood Urea Nitrogen 3L, Creatinine 0.50L, Estimat Glomerular Filtration Rate 117, BUN/Creatinine Ratio 6, Glucose Level 108H, Calcium Level 8.7, Corrected Calcium 9.6, Total Bilirubin 0.8, Aspartate Amino Transf (AST/SGOT) 36H, Alanine Aminotransferase (ALT/SGPT) 27, Alkaline Phosphatase 69, Total Protein 5.8L, Albumin 2.9L, White Blood Count 8.2, Red Blood Count 3.09L, Hemoglobin 9.5L, Hematocrit 28L, Mean Corpuscular Volume 89, Mean Corpuscular Hemoglobin 31, Mean Corpuscular Hemoglobin Concent 34, Red Cell Distribution Width 12.9, Platelet Count 483H, Mean Platelet Volume 8.7L, Immature Granulocyte % (Auto) 1, Neutrophils (%) (Auto) 73, Lymphocytes (%) (Auto) 14, Monocytes (%) (Auto) 9, Eosinophils (%) (Auto) 3, Basophils (%) (Auto) 1, Neutrophils # (Auto) 5.9, Lymphocytes # (Auto) 1.1, Monocytes # (Auto) 0.7, Eosinophils # (Auto) 0.3, Basophils # (Auto) 0.0, Immature Granulocyte # (Auto) 0.1 Pending Labs Laboratory Tests 06/11/21 05:26: Sodium Level 128, Potassium Level 4.4, Chloride Level 96, Carbon Dioxide Level 20, Anion Gap 12, Blood Urea Nitrogen 7, Creatinine 0.49, Estimat Glomerular Filtration Rate 120, BUN/Creatinine Ratio 14, Glucose Level 94, Calcium Level 8.1, Corrected Calcium 9.3, Total Bilirubin 0.5, Aspartate Amino Transf (AST/SGOT) 52, Alanine Aminotransferase (ALT/SGPT) 28, Alkaline Phosphatase 72, Total Protein 5.3, Albumin 2.5 06/11/21 08:00: White Blood Count 15.8, Red Blood Count 3.17, Hemoglobin 9.6, Hematocrit 29, Mean Corpuscular Volume 91, Mean Corpuscular Hemoglobin 30, Mean Corpuscular Hemoglobin Concent 33, Red Cell Distribution Width 13.1, Platelet Count 357, Mean Platelet Volume 9.0, Immature Granulocyte % (Auto) 1, Neutrophils (%) (Auto) 83, Lymphocytes (%) (Auto) 9, Monocytes (%) (Auto) 7, Eosinophils (%) (Auto) 1, Basophils (%) (Auto) 0, Neutrophils # (Auto) 13.1, Lymphocytes # (Auto) 1.3, Monocytes # (Auto) 1.1, Eosinophils # (Auto) 0.1, Basophils # (Auto) 0.1, Immature Granulocyte # (Auto) 0.1, Neutrophils % (Manual) 83, Lymphocytes % (Manual) 8, Monocytes % (Manual) 7, Eosinophils % (Manual) 2, Basophils % (Manual) 0, Band Neutrophils 0, Blood Morphology Comment NORMAL, Iron Level 17, Procalcitonin 0.07 06/13/21 06:24: Sodium Level 130, Potassium Level 3.7, Chloride Level 95, Carbon Dioxide Level 26, Anion Gap 9, Blood Urea Nitrogen 3, Creatinine 0.50, Estimat Glomerular Filtration Rate 117, BUN/Creatinine Ratio 6, Glucose Level 108, Calcium Level 8.7, Corrected Calcium 9.6, Total Bilirubin 0.8, Aspartate Amino Transf (AST/SGOT) 36, Alanine Aminotransferase (ALT/SGPT) 27, Alkaline Phosphatase 69, Total Protein 5.8, Albumin 2.9, White Blood Count 8.2, Red Blood Count 3.09, Hemoglobin 9.5, Hematocrit 28, Mean Corpuscular Volume 89, Mean Corpuscular Hemoglobin 31, Mean Corpuscular Hemoglobin Concent 34, Red Cell Distribution Width 12.9, Platelet Count 483, Mean Platelet Volume 8.7, Immature Granulocyte % (Auto) 1, Neutrophils (%) (Auto) 73, Lymphocytes (%) (Auto) 14, Monocytes (%) (Auto) 9, Eosinophils (%) (Auto) 3, Basophils (%) (Auto) 1, Neutrophils # (Auto) 5.9, Lymphocytes # (Auto) 1.1, Monocytes # (Auto) 0.7, Eosinophils # (Auto) 0.3, Basophils # (Auto) 0.0, Immature Granulocyte # (Auto) 0.1 Discharge Home Medications: Active Scripts Active Bethanechol Chloride 50 Mg Tablet 25 Mg PO BID Diclofenac Sodium 100 Gm Gel..gram. 0 Gm TOP QID PRN Sodium Chloride 1 Gm Tab 1 Gm PO DAILY Tramadol HCl 50 Mg Tablet 50 Mg PO Q8H PRN Reported Senokot-S Tablet (Sennosides/Docusate Sodium) 1 Each Tablet 1 Each PO BID PRN Toprol Xl (Metoprolol Succinate) 25 Mg Tab.er.24h 25 Mg PO DAILY Aspirin EC (Aspirin) 81 Mg Tablet.dr 81 Mg PO BID 25 Days Flomax (Tamsulosin HCl) 0.4 Mg Cap 0.4 Mg PO DAILY Lidocaine 5% Patch (Lidocaine) 1 Each Adh..patch 1 Each TP DAILY 7 Days Culturelle (Lactobacillus Rhamnosus GG) 1 Each Capsule 1 Each PO BID 7 Days Instructions to patient/family Please see electronic discharge instructions given to patient. Diagnosis/Problems Diagnosis/Problems (1) Hip fracture, right (2) UTI (urinary tract infection) (3) Urinary retention (4) Terry catheter in place (5) Falls (6) Hyponatremia (7) Constipation FAUSTO DAVILA DO Jun 21, 2021 05:23
[2021-06-21] MEDS: CYANOCOBALAMIN 1,000 MCG (VITAMIN B-12) TABLET PO SCH (06:17)
[2021-06-21 07:42] VITALS: BP 136/63
[2021-06-21] MEDS: CATHETER FLUSH 10 ML SYR IV SCH (07:43)
[2021-06-21] MEDS: LACTOBACILLUS ACIDOPHILUS (PROBIOTIC) CAPSULE PO SCH (07:43)
[2021-06-21] MEDS: LIDOCAINE 4% (SALONPAS) PATCH TP SCH (07:43)
[2021-06-21] MEDS: SODIUM CHLORIDE 1 GM TABLET PO SCH (07:43)
[2021-06-21] MEDS: ASPIRIN E.C. 81 MG (ECOTRIN) TAB PO SCH (07:43)
[2021-06-21] MEDS: NYSTATIN ORAL SUSP 5 ML UDC PO SCH (07:43)
[2021-06-21] MEDS: IRON SUCROSE 200 MG/10 ML (VENOFER) VIAL IV SCH (07:43)
[2021-06-21] MEDS: DOCUSATE SODIUM 100 MG (COLACE) CAP PO SCH (07:44)
[2021-06-21] MEDS: VANCOMYCIN 125 MG CAPSULE PO SCH (07:44)
[2021-06-21] MEDS: BETHANECHOL 25 MG (URECHOLINE) TAB PO SCH (07:44)
[2021-06-21] MEDS: polyethylene glycoL POWDER 17 GM (MIRALAX) PACK PO SCH (07:44)
[2021-06-21] MEDS: SENNA W/DOCUSATE (SENOKOT S) TABLET PO SCH (07:44)
--- NOTE | 2021-06-21 08:54 | Therapy Team Discharge Summary ---
Therapy Discharge Summary Discharge Recommendations Date of Discharge Occupational Therapy Decreased Activ Tolerance, Decreased Safety Aware, Impaired Self-Care Skills Speech-Language Pathology The patient was admitted to the ARU s/p second hip fracture due to a fall. The patient underwent a hip revision surgery and was admitted to the ARU for therapy prior to returning home. She was given the SLUMS at bedside with a score of 19/30 obtained which indicated a need for further ST services. Patient received skilled services with focus on retention of new information and safety awareness. Patient is discharging to her home today. She lives with her son who will assist her as needed as well as receiving home health services. PT Shelter Goals Nitroglycerin Supervisor Goals PT Nitroglycerin Supervisor Goals Time Frame: Jul 23, 2021 Roll Left to Right (QC): 5 Sit to Lying (QC): 5 Lying-Sitting on Side/Bed(QC): 5 Sit to Stand (QC): 5 Chair/Gqy-fd-Ynpqa Xfer(QC): 5 Car Transfer (QC): 5 Does the Patient Walk: Yes Walk 10 feet (QC): 5 Walk 10ft-Uneven Surface(QC): 5 Walk 50ft with 2 Turns (QC): 5 Walk 150 ft (QC): 5 Does the Pt use WC or Scooter?: No Wheel 50 feet with 2 turns (QC: 88 1 Step (curb) (QC): 4 4 Steps (QC): 4 12 Steps (QC): 4 Picking up an Object (QC): 5 OT Shelter Goals Nitroglycerin Supervisor Goals Time Frame: Jul 01, 2021 Eating (FIM): 6 Eating (QC): 6 (Met, per clinical judgement) Oral Hygiene (QC): 6 (Met, while seated in w/c at sink.) Shower/Bathe Self (QC): 6 (Met) Upper Body Dressing (QC): 6 (Not met, after set up.) Lower Body Dressing (QC): 6 (Not met, after set up.) On/Off Footwear (QC): 6 (Met) Toileting(FIM): 6 Toileting Hygiene (QC): 6 (Not met, supervision for safety.) Toilet/Commode Transfer (QC): 5 Additional Goals: 1-Demonstrate ADL Tasks, 2-Verbalize Understanding, 3- ImproveStrength/Etienne 1=Demonstrate adherence to instructed precautions during ADL tasks. 2=Patient will verbalize/demonstrate understanding of assistive devices/modifications for ADL. 3=Patient will improve strength/tolerance for activity to enable patient to perform ADL's. Speech Nitroglycerin Supervisor Goals Shelter Goals The pt will improve cognitive-communication abilities for functional daily living. ROGERS REVELES Jun 21, 2021 08:54
--- NOTE | 2021-06-21 08:58 | Physical Therapy Daily Note ---
PT Daily Note-Current Subjective Patient reports she doesn't have any pain in the right LE, "but my right knee is so sore." Reports she was very tired after last PT session but feel she slept well last night. Transfers SCALE: Activities may be completed with or without assistive devices. 7-Fnddnwmxbe-pumlzcz completes the activity by him/herself with no assistance from a helper. 5-Set-up or Clean-up Assistance-helper sets up or cleans up; patient completes activity. [place] assists only prior to or following the activity. 4-Supervision or Touching Assistance-helper provides verbal cues and/or touching/steadying and/or contact guard assistance as patient completes activity. Assistance may be provided throughout the activity or intermittently. 3-Partial/Moderate Assistance-helper does LESS THAN HALF the effort. [place] lifts, holds or supports trunk or limbs, but provides less than half the effort. 2-Substantial/Maximal Assistance-helper does MORE THAN HALF the effort. [place] lifts or holds trunk or limbs and provides more than half the effort. 8-Dgfzjyolx-eozwsd does ALL the effort. Patient does none of the effort to complete the activity. Or, the assistance of 2 or more helpers is required for the patient to complete the activity. If activity was not attempted, code reason: 7-Patient Refused. 9-Not Applicable-not attempted and the patient did not perform the activity before the current illness, exacerbation or injury. 10-Not Attempted due to Environmental Limitations-(lack of equipment, weather restraints, etc.). 88-Not Attempted due to Medical Conditions or Safety Concerns. Roll Left & Right (QC): 6 Sit to Lying (QC): 6 Lying to Sitting/Side of Bed(Q: 6 Sit to Stand (QC): 6 Chair/Wvd-st-Ghqws Xfer(QC): 6 Toilet Transfer (QC): 5 Car Transfer (QC): 5 Weight Bearing Right Lower Extremity: Right Weight Bearing/Tolerated Gait Training Does the Patient Walk?: Yes Distance: 165 feet Walk 10 feet (QC): 6 Walk 50 ft with 2 Turns(QC): 6 Walk 150 ft (QC): 5 Walking 10ft/uneven surface-QC: 5 Gait Persons Needed: 1 Gait Assistive Device: FWW Wheelchair Training Does the Pt Use a Wheelchair?: Yes Wheel 50 ft with 2 turns (QC): 6 Wheel 150 ft (QC): 6 Type of Wheelchair: Manual Stair Training Stair Training: Handrails/: 2 handrails #of Steps: 8 1 Step (curb) (QC): 5 4 Steps (QC): 5 12 Steps (QC): 88 Stairs: Pattern: Step to Balance Picking up an Object (QC): 6 Special Test Comments Uses FWW and assistant pastry chef but is able to warehouse order picker object without assistance or verbal cues. Assessment Current Status: Good Progress Patient tolerated treatment well. Demonstrates good overall improvement and increased tolerance to activity. Patient demonstrates I with all bed mobility and SBA for transfers. Patient ambulates 165 feet with FWW with w/c following behind. Patient is able to ascend/descend 8 steps with 2 rails and SBA, however reports she is too fatigued to attempt 12 steps. Patient in w/c post treatment with all needs met, nursing notified, call light in hand, all needs met. PT Short Term Goals Short Term Goals Time Frame: Jun 25, 2021 Roll Left & Right: 4 (Met) Sit to lyin (Met) Lying to sitting on side of be: 4 (Met) Sit to stand: 4 (Met) Chair/jfv-wj-shqlg transfer: 4 (Met) Toilet transfer: 4 (Met) Car transfer: 4 (Met) Walk 10 feet: 4 (Met) Walk 50 feet with two turns: 4 (Met) Walk 150 feet: 4 (Met) Walking 10ft on uneven surface: 4 (Met) 1 step (curb): 3 (Met) 4 steps: 3 (Met) 12 steps: 3 Picking up objects: 4 (Met) Does pt use a wc or scooter: Yes PT Sap Director Goals [facility] Goals PT Sap Director Goals Time Frame: Jul 23, 2021 Roll Left & Right (QC): 5 (Met) Sit to Lying (QC): 5 (Met) Lying-Sitting on Side/Bed(QC): 5 (Met) Sit to Stand (QC): 5 (Met) Chair/Rsz-qu-Uzarp Xfer(QC): 5 (Met) Toilet Transfer (QC): 5 (Met) Car Transfer (QC): 5 (Met) Does the Patient Walk: Yes Walk 10 feet (QC): 5 (Met) Walk 50ft with 2 Turns (QC): 5 (Met) Walk 150 ft (QC): 5 (Met) Walking 10ft on Uneven Surface: 5 (Met) 1 Step (curb) (QC): 4 (Met) 4 Steps (QC): 4 (Met) 12 Steps (QC): 4 Picking up an Object (QC): 5 (Met) Does the Pt use WC or Scooter?: Yes Wheel 50 feet with 2 turns (QC: 88 Wheel 150 feet: 88 PT Plan Treatment/Plan Treatment Plan: Discontinue PT, goals met, Discontinue PT Treatment Plan: Bed Mobility, Concurrent Therapy, Education, Functional Activity Etienne, Functional Strength, Group Therapy, Gait, Safety, Therapeutic Exercise, Transfers Patient being discharged this date. Treatment Duration: Aug 24, 2021 Frequency: At least 5 of 7 days/Wk (IRF) Estimated Hrs Per Day: 1.5 hours per day Patient and/or Family Agrees t: Yes Safety Risks/Education Patient Education: Gait Training, Transfer Techniques, Steps Teaching Recipient: Patient Teaching Methods: Demonstration, Discussion Response to Teaching: Verbalize Understanding, Return Demonstration Time/GCodes Time In: 825 Time Out: 850 Total Billed Treatment Time: 25 Total Billed Treatment Visit, WILSON Gardner JOHN A PT Jun 21, 2021 08:58
--- NOTE | 2021-06-21 09:06 | Therapy Team Discharge Summary ---
Therapy Discharge Summary Discharge Recommendations Date of Discharge Occupational Therapy Pt admitted to ARU s/p R NAJMA. At OF, pt was independent with I/ADLs and functional mobility, no AD/AE. Upon initial evaluation, pt was independent with eating, required set up assistance with oral care, min A showering, set up upper body dressing, max A lower body dressing, max A footwear and min A toileting. OT txs focused on increasing independence and safety with ADLs and functional mobility, education on AE for LE dressing, and increasing BUE strength and activity tolerance. At discharge, pt was independent with eating, oral care, showering, and footwear, meeting LTGs for those ADLs. Pt required set up assistance with upper/lower body dressing, and supervision with toileting. Pt made functional progress towards other goals, but did not attain. Pt would benefit from a hip kit at discharge. Pt to discharge from facility on this date, d/c from OT at this time Decreased Activ Tolerance, Decreased Safety Aware, Impaired Self-Care Skills PT Molding Engineer Goals Molding Engineer Goals PT Molding Engineer Goals Time Frame: Jul 23, 2021 Roll Left to Right (QC): 5 (Met) Sit to Lying (QC): 5 (Met) Lying-Sitting on Side/Bed(QC): 5 (Met) Sit to Stand (QC): 5 (Met) Chair/Xpu-zq-Skxwo Xfer(QC): 5 (Met) Car Transfer (QC): 5 (Met) Does the Patient Walk: Yes Walk 10 feet (QC): 5 (Met) Walk 10ft-Uneven Surface(QC): 5 (Met) Walk 50ft with 2 Turns (QC): 5 (Met) Walk 150 ft (QC): 5 (Met) Does the Pt use WC or Scooter?: Yes Wheel 50 feet with 2 turns (QC: 88 1 Step (curb) (QC): 4 (Met) 4 Steps (QC): 4 (Met) 12 Steps (QC): 4 Picking up an Object (QC): 5 (Met) OT Long-Term Goals Molding Engineer Goals Time Frame: Jul 01, 2021 Eating (FIM): 6 Eating (QC): 6 (Met, per clinical judgement) Oral Hygiene (QC): 6 (Met, while seated in w/c at sink.) Shower/Bathe Self (QC): 6 (Met) Upper Body Dressing (QC): 6 (Not met, after set up.) Lower Body Dressing (QC): 6 (Not met, after set up.) On/Off Footwear (QC): 6 (Met) Toileting(FIM): 6 Toileting Hygiene (QC): 6 (Not met, supervision for safety.) Toilet/Commode Transfer (QC): 5 (Met) Additional Goals: 1-Demonstrate ADL Tasks, 2-Verbalize Understanding, 3- ImproveStrength/Etienne 1=Demonstrate adherence to instructed precautions during ADL tasks. 2=Patient will verbalize/demonstrate understanding of assistive devices/modifications for ADL. 3=Patient will improve strength/tolerance for activity to enable patient to perform ADL's. Speech Long-Term Goals Molding Engineer Goals The pt will improve cognitive-communication abilities for functional daily living. PANCHO VAZQUEZ OT Jun 21, 2021 09:06
--- NOTE | 2021-06-21 09:31 | Therapy Team Discharge Summary ---
Therapy Discharge Summary Discharge Recommendations Date of Discharge 06/21/21 Therapy D/C Recommendations: Home w/ Family Support, Physical Therapy Home Care, Physical Therapy Outpatient Physical Therapy Patient tolerated treatment well. Demonstrates good overall improvement and increased tolerance to activity. Patient demonstrates I with all bed mobility and SBA for transfers. Patient ambulates 165 feet with FWW with w/c following behind. Patient is able to ascend/descend 8 steps with 2 rails and SBA, however reports she is too fatigued to attempt 12 steps. Patient in w/c post treatment with all needs met, nursing notified, call light in hand, all needs met. Will benefit from Homehealth nursing and PT with progression to Outpatient PT for continued strengthening. Occupational Therapy Decreased Activ Tolerance, Decreased Safety Aware, Impaired Self-Care Skills PT Advertising Job Titles Goals Advertising Job Titles Goals PT Advertising Job Titles Goals Time Frame: Jul 23, 2021 Roll Left to Right (QC): 5 (Met) Sit to Lying (QC): 5 (Met) Lying-Sitting on Side/Bed(QC): 5 (Met) Sit to Stand (QC): 5 (Met) Chair/Bvw-ye-Gtwcx Xfer(QC): 5 (Met) Car Transfer (QC): 5 (Met) Does the Patient Walk: Yes Walk 10 feet (QC): 5 (Met) Walk 10ft-Uneven Surface(QC): 5 (Met) Walk 50ft with 2 Turns (QC): 5 (Met) Walk 150 ft (QC): 5 (Met) Does the Pt use WC or Scooter?: Yes Wheel 50 feet with 2 turns (QC: 88 1 Step (curb) (QC): 4 (Met) 4 Steps (QC): 4 (Met) 12 Steps (QC): 4 Picking up an Object (QC): 5 (Met) OT Advertising Job Titles Goals Fdc Goals Time Frame: Jul 01, 2021 Eating (FIM): 6 Eating (QC): 6 (Met, per clinical judgement) Oral Hygiene (QC): 6 (Met, while seated in w/c at sink.) Shower/Bathe Self (QC): 6 (Met) Upper Body Dressing (QC): 6 (Not met, after set up.) Lower Body Dressing (QC): 6 (Not met, after set up.) On/Off Footwear (QC): 6 (Met) Toileting(FIM): 6 Toileting Hygiene (QC): 6 (Not met, supervision for safety.) Toilet/Commode Transfer (QC): 5 (Met) Additional Goals: 1-Demonstrate ADL Tasks, 2-Verbalize Understanding, 3- ImproveStrength/Etienne 1=Demonstrate adherence to instructed precautions during ADL tasks. 2=Patient will verbalize/demonstrate understanding of assistive devices/modifications for ADL. 3=Patient will improve strength/tolerance for activity to enable patient to perform ADL's. Speech Fdc Goals Fdc Goals The pt will improve cognitive-communication abilities for functional daily living. BENTON NOVA PT Jun 21, 2021 09:31
[2021-06-21 09:56] VITALS: BP 136/63
== END 2021-06-21 09:30 | disposition home health service (06) | DRG 560 ==
PROVIDERS: ADMIT Internal Medicine; ATTEND Internal Medicine
DX: M97.01XD Periprosthetic fracture around internal prosthetic right hip joint, subsequent encounter (principal); E87.1 Hypo-osmolality and hyponatremia; D62 Acute posthemorrhagic anemia; E46 Unspecified protein-calorie malnutrition; N39.0 Urinary tract infection, site not specified; Z91.81 History of falling; I10 Essential (primary) hypertension; Z68.27 Body mass index [BMI] 27.0-27.9, adult; R33.9 Retention of urine, unspecified; K59.00 Constipation, unspecified; M19.91 Primary osteoarthritis, unspecified site; F41.9 Anxiety disorder, unspecified; Z79.82 Long term (current) use of aspirin; Z87.81 Personal history of (healed) traumatic fracture
CPT/HCPCS: 36410; 36415; 76937; 80053; 83540; 84145; 85007; 85025; 85027